=== PATIENT | female | born 1940 | race Caucasian/White ===

== ENCOUNTER 2017-10-17 07:42 | Emergency (ER) | payer MEDICARE ==
--- NOTE | 2017-10-17 08:52 | RAD ---
CHEST 1 VIEW: Date: 10/17/17 HISTORY: Cough. COMPARISON: Chest radiograph dated 02/27/17. FINDINGS: Lungs are hyperinflated. No pneumothorax or effusion. Heart size mildly enlarged. Multiple surgical c lips. No acute osseous abnormality. IMPRESSION: Lung hyperinflation and cardiomegaly. POS: [facility]
[2017-10-17 08:53] LABS: Hemoglobin 11.9 g/dL (12.0-16.0); Mean Corpuscular HGB CONC 33.6 g/dL (32.0-36.0); Mean Corpuscular Hemoglobin 34.9 pg (27.0-31.0); RBC Distribution Width 11.8 % (11.5-14.5); Red Blood Cell (RBC) Count 3.41 mill/uL (4.20-5.40)
[2017-10-17 08:57] LABS: CKMB 0.8 ng/mL (0-6.6); Troponin I Less than 0.010 ng/mL (< 0.028)
[2017-10-17 08:59] LABS: ALT (SGPT) 27 U/L (8-55); AST (SGOT) 26 U/L (5-34); Albumin 3.4 g/dL (3.4-4.8); Alkaline Phosphatase 69 U/L (40-150); Anion Gap 9 mmol/L (10-20); BUN (Urea Nitrogen) 17 mg/dL (9.8-20.1); Bilirubin, Total 0.4 mg/dL (0.2-1.2); Calc. Creatinine Clearance 0 mL/min (70-130); Calcium 9.2 mg/dL (7.8-10.44); Carbon Dioxide 30 mmol/L (23-31); Chloride 106 mmol/L (98-107); Estimated GFR-MDRD 85; Globulin 2.6 g/dL (2.4-3.5); Glucose 80 mg/dL (83-110); Potassium 4.1 mmol/L (3.5-5.1); Sodium 141 mmol/L (136-145)
[2017-10-17] MEDS ORDERED: Ondansetron HCl/PF 4 MG/2 ML Vial ONE (09:22)
[2017-10-17 09:24] LABS: #Eosinphils 0.1 thou/uL (0.0-0.7); #Lymphocytes 1.7 thou/uL (1.20-3.40); #Monocytes 0.3 thou/uL (0.11-0.59); #Neutrophils 2.9 thou/uL (1.40-6.50); %Basophils 0.2 % (0.0-1.0); %Eosinophils 2.6 % (0.0-10.0); %Lymphocytes 33.9 % (21.0-51.0); %Monocytes 6.5 % (0.0-10.0); %Neutrophils 56.8 % (42.0-75.0); PLT Morphology Comment Appears Decreased; Platelet Count 106 thou/uL (130-400)
[2017-10-17 11:10] LABS: Bilirubin Negative (Negative); Blood, Urine Negative (Negative); Glucose, Urine (Dipstick) Negative (Negative); Leukocyte Negative (Negative); Nitrite Negative (Negative); Protein, Urine (Dipstick) Negative (Neg-Trace); Specific Gravity, Urine 1.015 (1.005-1.030); Urobilinogen 0.2 mg/dL (0.2-1.0)
[2017-10-17 11:14] LABS: Clarity Clear (Clear)
== END 2017-10-17 12:08 | disposition home or self-care (01) ==
LOC: ERS 07:42
DX: R11.0 Nausea (principal); J44.9 Chronic obstructive pulmonary disease, unspecified; I25.10 Atherosclerotic heart disease of native coronary artery without angina pectoris; E11.9 Type 2 diabetes mellitus without complications; K21.9 Gastro-esophageal reflux disease without esophagitis; I10 Essential (primary) hypertension; M81.0 Age-related osteoporosis without current pathological fracture; F41.9 Anxiety disorder, unspecified; F32.9 Major depressive disorder, single episode, unspecified; F17.210 Nicotine dependence, cigarettes, uncomplicated; Z79.84 Long term (current) use of oral hypoglycemic drugs; Z79.899 Other long term (current) drug therapy; Z86.73 Personal history of transient ischemic attack (TIA), and cerebral infarction without residual deficits
CPT/HCPCS: 36415; 71045; 80053; 81003; 82150; 82553; 83880; 84484; 85025; 93005; 96361; 96374; J2405

== ENCOUNTER 2017-10-29 11:21 | Inpatient (IN) | payer MEDICARE ==
[2017-10-29 12:12] LABS: #Eosinphils 0.2 thou/uL (0.0-0.7); #Lymphocytes 1.7 thou/uL (1.20-3.40); #Monocytes 0.4 thou/uL (0.11-0.59); #Neutrophils 2.7 thou/uL (1.40-6.50); %Basophils 0.2 % (0.0-1.0); %Eosinophils 3.5 % (0.0-10.0); %Lymphocytes 33.3 % (21.0-51.0); Hemoglobin 11.9 g/dL (12.0-16.0); Mean Corpuscular HGB CONC 32.8 g/dL (32.0-36.0); Mean Corpuscular Hemoglobin 34.6 pg (27.0-31.0); Mean Platelet Volume 7.2 fL (7.4-10.4); Platelet Count 99 thou/uL (130-400); Red Blood Cell (RBC) Count 3.44 mill/uL (4.20-5.40)
[2017-10-29 12:34] LABS: ALT (SGPT) 40 U/L (8-55); AST (SGOT) 34 U/L (5-34); Albumin 3.3 g/dL (3.4-4.8); Alkaline Phosphatase 81 U/L (40-150); Anion Gap 7 mmol/L (10-20); BUN (Urea Nitrogen) 17 mg/dL (9.8-20.1); Bilirubin, Total 0.5 mg/dL (0.2-1.2); Calc. Creatinine Clearance 0 mL/min (70-130); Calcium 9.2 mg/dL (7.8-10.44); Carbon Dioxide 33 mmol/L (23-31); Chloride 104 mmol/L (98-107); Estimated GFR-MDRD Greater than 90; Globulin 2.6 g/dL (2.4-3.5); Glucose 95 mg/dL (83-110); Lipase 24 U/L (8-78); Potassium 4.4 mmol/L (3.5-5.1); Protein, Total 5.9 g/dL (6.0-8.3); Sodium 140 mmol/L (136-145)
--- NOTE | 2017-10-29 13:21 | CT ---
CT AORTOGRAM CHEST AND ABDOMEN WITH CONTRAST: Multiple axial tomograms are obtained through the chest and abdomen with arterial phase enhancement f ollowing aortogram protocol with multiplanar reconstruction and 3D postprocessing. INDICATIONS: Abdominal pain. Shortness of breath. Assess for aortic dissection. FINDINGS: There is mild ectasia of the ascending aorta with diameter measured up to 3 cm. Atherosclerotic ng ges are seen throughout the thoracic and abdominal aorta. There is mild ectasia of the descending th oracic aorta with diameter measured at up to 3.3 cm. There is no evidence of thoracic or abdominal a ortic dissection. 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 There is a large amount of peripheral thrombus within this saccular aneurysm. The overall diameter is measured at 3.6 cm and the lumen at this location measured approximately 2.0 cm. There is atherosclerotic calcified plaque at the origin of both celiac artery and superior mesenteric artery. These changes produce mild stenosis at both of these arteries. There is calcified plaque a t the origin of both renal arteries and there appears to be significant stenosis at the origin of bot h renal arteries (greater than 50%). Diffuse atherosclerotic disease is seen at the aortic bifurcation and extending into both common anastasiya cs and external iliacs. This produces mild stenosis which does not appear hemodynamically significan t. Review of the lung mantilla showed diffuse chronic lung parenchymal changes with interstitial thickenin g of fibrotic stranding bilaterally with evidence of emphysematous change. A focal area of parenchym al opacity is seen in the posterior right upper lobe along the fissure could represent a focal inflam matory infiltrate. Liver, spleen, pancreas unremarkable. Kidneys unremarkable. There are bilateral adrenal masses. The left adrenal mass measures up to 3.2 cm and the right adrena l mass measures 2.0 cm in the coronal plane. These are heterogeneous and show evidence of internal e nhancement and cannot be classified as benign adenomas on this single-phase study. Visualized bowel loops unremarkable. Review of the osseous structures shows degenerative changes in the spine. There is a defect involvin g the peripheral left ileum which presumably represents the site of bone graft. This has sclerotic m argins and does not appear aggressive. Recommend clinical correlation regarding prior surgery. IMPRESSION: 1. No evidence of thoracic or abdominal aortic dissection. 2. 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 3. Ectasia of thoracic and abdominal aorta otherwise noted as described above. 4. Bilateral adrenal masses which will need further evaluation to exclude neoplasm. 5. There is a focal area of parenchymal opacity in the posterior right upper lobe along the fissure which is concerning for acute inflammatory infiltrate and recommend clinical correlation. 6. Bilateral renal artery stenosis POS: [facility]
[2017-10-29] MEDS ORDERED: hydrALAZINE 20 MG/ML VIAL ONE (14:16)
[2017-10-29] MEDS ORDERED: Acetaminophen/Codeine 30-300mg Tablet ONE (14:44)
[2017-10-29] MEDS ORDERED: Acetaminophen/Codeine 120-12MG/5 ML UDCUP PO SCH (14:45)
[2017-10-29] MEDS ORDERED: Levofloxacin 500 mg/D5W 100 ml Premix Bag ONE (15:00)
[2017-10-29] MEDS ORDERED: ISOVUE-370 76%-LOCM 1 ML ONE (16:37)
[2017-10-29 16:40] VITALS: BMI 13.3
[2017-10-29] MEDS: Sodium Chloride 0.45% 1,000 ML IV SCH (17:43)
[2017-10-29] MEDS: Sodium Chloride 0.9% 1,000 ML IV SCH (17:43)
[2017-10-29] MEDS: Ondansetron HCl/PF 4 MG/2 ML Vial SLOW IVP PRN (17:56)
[2017-10-29] MEDS: Acetaminophen/Codeine 30-300mg Tablet PO SCH (19:35)
[2017-10-29] MEDS: ALPRAZolam 0.5 MG TAB PO SCH (19:36)
[2017-10-29] MEDS: Atorvastatin Calcium 10 MG TAB PO SCH (19:36)
[2017-10-29] MEDS: Lisinopril 20 MG TAB PO SCH (19:37)
[2017-10-29] MEDS: Carvedilol 6.25 MG TAB PO SCH (19:37)
[2017-10-29] MEDS: guaiFENesin ER 600 MG TAB PO SCH (19:37)
[2017-10-29] MEDS: Temazepam 15 MG CAP PO SCH (19:37)
--- NOTE | 2017-10-29 23:39 | HP ---
DATE OF ADMISSION: 10/29/2017 REASON FOR ADMISSION AND CHIEF COMPLAINT: Shortness of breath, cough, fever, and nausea. HISTORY OF PRESENT ILLNESS: Ms. Marlow is a 77-year-old female with past medical history of end-stage COPD, hypertension, coronary artery disease status post CABG, started having some shortness of breath since yesterday which got worse today. Also has cough productive with yellow sputum. Also having some low grade fever. The patient says she has been using nebulizer treatments as well as other medications. In spite of that, the shortness of breath was getting worse and cough was getting worse as well. The patient also has had this persistent nausea for some time for the last few weeks , but no vomiting. She is able to tolerate diet. So the patient called EMS, EMS found the patient with respiratory distress, received Solu-Medrol and neb treatments on the way to the hospital. In the ER, the patient was evaluated and found to have an infiltrate in right lower lobe and COPD exacerbation, received antibiotic Levaquin. She also received Tylenol with codeine for pain and blood pressure was evaluated and received hydralazine as well and admitted for further evaluation and management. PAST MEDICAL HISTORY: 1. Chronic obstructive pulmonary disease, end-stage. 2. Coronary artery disease, status post coronary artery bypass graft. 3. Hypertension 4. Anxiety disorder. 5. Chronic back pain. 6. Protein calorie malnutrition. 7. Gastroesophageal reflux disease. 8. History of cerebrovascular accident with right cerebellar ataxia. 9. History of subarachnoid hemorrhage. 10. History of osteoporosis. PAST SURGICAL HISTORY: Status post CABG. CURRENT MEDICATIONS: The patient is on Restoril 30 mg at bedtime, metformin 500 daily, lisinopril 20 b.i.d., Lexapro 20 mg daily, Xanax 0.5 t.i.d., digoxin 0.125 daily, DuoNebs q.i.d., ranitidine 150 daily, estradiol patch weekly, Tylenol with codeine q.i.d. p.r.n., Symbicort 160/4.5 two puffs b.i.d., Pravachol 40 at bedtime, Coreg 6.25 b.i.d. ALLERGIES: PENICILLIN. FAMILY HISTORY: Nothing contributory. SOCIAL HISTORY: The patient lives alone. History of smoking, smokes half pack a day. No history of alcohol intake. REVIEW OF SYSTEMS: Cardiovascular: Has shortness of breath, no chest pain. Respiratory: Has cough and fever. Gastrointestinal: Has nausea. No vomiting. No abdominal pain. Genitourinary: No dysuria or hematuria. Central nervous system: No headache, no dizziness. PHYSICAL EXAMINATION: GENERAL: The patient is alert, awake, oriented x3. VITAL SIGNS: Temperature 98, pulse 74, respirations 20, blood pressure initially 200/106. HEENT: Head is normocephalic, atraumatic. Pupils equal and reactive to light. Nasopharynx is pale and dry. Hard and soft palate, no lesions seen. SKIN: Skin turgor decreased. NECK: Supple. No JVD. LUNGS: Breath sounds diminished bilaterally. Percussion not dull bilaterally. Expiratory wheeze present. Rales present in bases. CARDIAC: S1, S2 regular. ABDOMEN: Soft, no distention, no tenderness. Normal bowel sounds present. RECTAL: Deferred. CENTRAL NERVOUS SYSTEM: No focal deficit. LABORATORY AND X-RAY FINDINGS: CBC shows WBC 5, hemoglobin 11.9, hematocrit 36 , platelets 99,000. Prothrombin time 13, INR 1. Metabolic panel shows sodium 140, potassium 4.4, chloride 104, CO2 of 33, BUN 17, creatinine 0.62, glucose 123. CT dissection protocol revealed infiltrate in the posterior upper lobe along the fissure right upper lobe, also evidence of bilateral adrenal masses , saccular aneurysmal dilatation of abdominal aorta with a large amount of peripheral thrombus. EKG shows sinus bradycardia, no acute ST-T wave changes seen. ASSESSMENT: 1. Pneumonia, right upper lobe. 2. Chronic obstructive pulmonary disease with acute exacerbation. 3. Hypertension, uncontrolled. 4. Bilateral adrenal masses, stable compared to the MRI done in 2010, overall size not increased. 5. Chronic nausea. 6. Coronary artery disease, status post coronary artery bypass graft. 7. Protein calorie malnutrition. 8. Anxiety disorder. 9. Chronic back pain. PLAN: 1. Vital signs q.4 hours. 2. Activity: As tolerated. 3. Allergies: PENICILLIN. 4. IV fluids: Half normal at 70 mL per hour. 5. Diet: Cardiac. 6. DuoNebs q.i.d. 7. Solu-Medrol 20 IVP q.6 hours. 8. Mucinex 600 b.i.d. 9. Levaquin 750 daily IV piggyback daily. 10. Continue home medications. 11. Oxygen by nasal cannula at 2 liters. MTDD
[2017-10-30] MEDS: Sodium Chloride 0.45% 1,000 ML IV SCH ×2 (06:26→06:27)
[2017-10-30] MEDS: Sodium Chloride 0.9% 1,000 ML IV SCH (06:32)
[2017-10-30] MEDS: Mometasone/Formoterol 120 PUFF INHALER INH SCH ×2 (06:43→19:45)
[2017-10-30] MEDS: Ondansetron HCl/PF 4 MG/2 ML Vial SLOW IVP PRN ×2 (07:47→13:21)
[2017-10-30] MEDS: Acetaminophen/Codeine 30-300mg Tablet PO SCH ×3 (07:48→20:22)
[2017-10-30] MEDS: guaiFENesin ER 600 MG TAB PO SCH ×2 (07:48→20:23)
[2017-10-30] MEDS: Escitalopram Oxalate 20 mg Tablet PO SCH (07:48)
[2017-10-30] MEDS: ALPRAZolam 0.5 MG TAB PO SCH ×3 (07:48→20:23)
[2017-10-30] MEDS: Lisinopril 20 MG TAB PO SCH ×2 (07:49→20:23)
[2017-10-30] MEDS: metFORMIN 500 MG TAB PO SCH ×2 (07:50→16:58)
[2017-10-30] MEDS: Carvedilol 6.25 MG TAB PO SCH ×2 (07:50→20:23)
[2017-10-30] MEDS: Digoxin 0.125 MG TAB PO SCH (07:53)
[2017-10-30] MEDS: cefTRIAXone\\ROCEPHIN 1 GM, Syringe 0.4 ML in Sterile Water 9.6 ML SLOW IVP SCH (11:40)
[2017-10-30] MEDS: Azithromycin 250 MG in Sodium Chloride 0.9% 250 ML 250 ML IVPB SCH (11:41)
[2017-10-30] MEDS: Temazepam 15 MG CAP PO SCH (20:23)
[2017-10-30] MEDS: Atorvastatin Calcium 10 MG TAB PO SCH (20:23)
[2017-10-31] MEDS: Sodium Chloride 0.45% 1,000 ML IV SCH (03:15)
[2017-10-31] MEDS: Mometasone/Formoterol 120 PUFF INHALER INH SCH ×2 (07:57→22:42)
[2017-10-31] MEDS: Carvedilol 6.25 MG TAB PO SCH ×2 (08:17→20:26)
[2017-10-31] MEDS: metFORMIN 500 MG TAB PO SCH ×2 (08:18→17:12)
[2017-10-31] MEDS: ALPRAZolam 0.5 MG TAB PO SCH ×3 (08:18→20:26)
[2017-10-31] MEDS: Acetaminophen/Codeine 30-300mg Tablet PO SCH ×3 (08:18→20:27)
[2017-10-31] MEDS: Lisinopril 20 MG TAB PO SCH ×2 (08:18→20:26)
[2017-10-31] MEDS: Escitalopram Oxalate 20 mg Tablet PO SCH (08:18)
[2017-10-31] MEDS: guaiFENesin ER 600 MG TAB PO SCH ×2 (08:18→20:26)
[2017-10-31] MEDS: Ondansetron HCl/PF 4 MG/2 ML Vial SLOW IVP PRN (08:23)
[2017-10-31] MEDS: cefTRIAXone\\ROCEPHIN 1 GM, Syringe 0.4 ML in Sterile Water 9.6 ML SLOW IVP SCH (11:30)
[2017-10-31] MEDS: Azithromycin 250 MG in Sodium Chloride 0.9% 250 ML 250 ML IVPB SCH (12:50)
[2017-10-31] MEDS ORDERED: Amlodipine 5 MG TAB PO SCH (18:15)
[2017-10-31] MEDS: Temazepam 15 MG CAP PO SCH (20:26)
[2017-10-31] MEDS: Atorvastatin Calcium 10 MG TAB PO SCH (20:26)
[2017-11-01] MEDS: Mometasone/Formoterol 120 PUFF INHALER INH SCH ×2 (08:14→19:23)
[2017-11-01] MEDS: Carvedilol 6.25 MG TAB PO SCH ×2 (09:05→20:17)
[2017-11-01] MEDS: ALPRAZolam 0.5 MG TAB PO SCH ×3 (09:05→20:18)
[2017-11-01] MEDS: Escitalopram Oxalate 20 mg Tablet PO SCH (09:05)
[2017-11-01] MEDS: guaiFENesin ER 600 MG TAB PO SCH ×2 (09:05→20:17)
[2017-11-01] MEDS: Acetaminophen/Codeine 30-300mg Tablet PO SCH ×3 (09:05→20:18)
[2017-11-01] MEDS: Lisinopril 20 MG TAB PO SCH ×2 (09:05→20:17)
[2017-11-01] MEDS: Amlodipine 5 MG TAB PO SCH (09:06)
[2017-11-01] MEDS: metFORMIN 500 MG TAB PO SCH ×2 (09:06→17:36)
[2017-11-01] MEDS: Digoxin 0.125 MG TAB PO SCH (09:12)
[2017-11-01] MEDS: Azithromycin 250 MG in Sodium Chloride 0.9% 250 ML 250 ML IVPB SCH (13:10)
[2017-11-01] MEDS: cefTRIAXone\\ROCEPHIN 1 GM, Syringe 0.4 ML in Sterile Water 9.6 ML SLOW IVP SCH (13:10)
[2017-11-01] MEDS: Atorvastatin Calcium 10 MG TAB PO SCH (20:17)
[2017-11-01] MEDS: Temazepam 15 MG CAP PO SCH (20:18)
[2017-11-02] MEDS: Mometasone/Formoterol 120 PUFF INHALER INH SCH (08:09)
[2017-11-02] MEDS: Lisinopril 20 MG TAB PO SCH (08:24)
[2017-11-02] MEDS: Carvedilol 6.25 MG TAB PO SCH (08:24)
[2017-11-02] MEDS: Acetaminophen/Codeine 30-300mg Tablet PO SCH (08:25)
[2017-11-02] MEDS: ALPRAZolam 0.5 MG TAB PO SCH (08:25)
[2017-11-02] MEDS: Escitalopram Oxalate 20 mg Tablet PO SCH (08:25)
[2017-11-02] MEDS: Amlodipine 5 MG TAB PO SCH (08:25)
[2017-11-02] MEDS: guaiFENesin ER 600 MG TAB PO SCH (08:25)
[2017-11-02] MEDS: metFORMIN 500 MG TAB PO SCH (08:25)
[2017-11-02] MEDS: cefTRIAXone\\ROCEPHIN 1 GM, Syringe 0.4 ML in Sterile Water 9.6 ML SLOW IVP SCH (11:11)
[2017-11-02] MEDS: Azithromycin 250 MG in Sodium Chloride 0.9% 250 ML 250 ML IVPB SCH (12:20)
[2017-11-02 12:45] VITALS: BP 169/77; TEMP 97.6
--- NOTE | 2017-11-03 11:38 | DIS ---
DATE OF ADMISSION: 10/29/2017 DATE OF DISCHARGE: 11/02/2017 ADMITTING DIAGNOSES: 1. Pneumonia, right upper lobe. 2. Chronic obstructive pulmonary disease with acute exacerbation. 3. Hypertension, uncontrolled. 4. Bilateral adrenal masses, stable compared to MRI done in 2009. 5. Chronic nausea. 6. Coronary artery disease, status post coronary artery bypass graft. 7. Protein calorie malnutrition. 8. Anxiety disorder. 9. Chronic back pain. FINAL DIAGNOSES: 1. Right upper lobe pneumonia, improving. 2. Chronic obstructive pulmonary disease acute exacerbation, improved. 3. Chronic nausea, improving. 4. Hypertension. 5. Protein calorie malnutrition. 6. Coronary artery disease, status post coronary artery bypass graft. 7. Bilateral adrenal masses, stable. 8. Anxiety disorder. BRIEF SUMMARY OF HOSPITAL COURSE: Ms. Marlow is a 77-year-old female admitted because of shortness of breath and cough. The patient was found to be in COPD exacerbation with pneumonia. Th e patient was started on IV fluids and IV antibiotics with Levaquin, DuoNeb, and Solu-Medrol. In the next couple of days, her shortness of breath improved and her chest wheezing resolved. She did not have any fever. She became more alert, awake, and she was able to tolerate diet. Her blood cultures revealed no growth. In view of improvement, the patient still feels very weak, not able to ambulate on her own. She requesting usp placement where she can get physical therapy, so she is jonathan ng discharged. At the time of discharge, she was stable. Her vital signs were stable. Lungs were c lear. Heart sounds are regular. Abdomen is soft, nontender. Bowel sounds present. DISCHARGE MEDICATIONS: Include temazepam 30 mg at bedtime, metformin 500 daily, lisinopril 20 mg b.i .d., Lexapro 20 mg daily, Xanax 0.5 t.i.d., digoxin 0.125 daily, DuoNeb q.i.d., estradiol patch weekl y, Tylenol with Codeine 1 t.i.d., metformin 250 at bedtime, Symbicort 160/4.5 two puffs b.i.d., Prava chol 40 mg at bedtime, Coreg 12.5 b.i.d., amlodipine 5 mg daily, Omnicef 300 b.i.d. for 10 days, guai fenesin ER 600 b.i.d. for 10 days, prednisone in tapering doses. DISCHARGE INSTRUCTIONS: The patient is accepted at [facility]. She will get physical t herapy.
[2017-11-05] MEDS ORDERED: Estradiol 0.05mg/24 Hour Patch (Weekly) TD SCH (09:00)
--- NOTE | 2017-11-12 16:44 | PQF ---
CHRISTIAN BONILLA VENKAT R MD [id number] CLINICAL DOCUMENTATION CLARIFICATION FORM: POST DISCHARGE Addendum to original discharge summary date: ____ Late entry note date: __ Date: 11/12/17 ATTN: Dr Gonzalez Please exercise your independent, professional judgment in responding to the clarification form. Clinical indicators are provided on the bottom of this form for your review Please check appropriate box(s): [ y ] Protein Calorie Malnutrition: [ ] Mild [y ] Moderate [ ] Severe [ ] Other Malnutrition (please specify) __ [ ] Underweight without malnutrition [ ] Cachexia [ ] Other diagnosis [ ] Unable to determine In addition, please specify: Present on Admission (POA): [ y] Yes [ ] No [ ] Unable to determine CLINICAL INDICATORS - SIGNS / SYMPTOMS / LABS BMI of __13.3 Two or More of the Following: Unintentional Insufficient Energy Intake Weight Loss Loss of Muscle Mass Loss of Subcutaneous Fat h RISK FACTORS Inability to consume adequate caloric intake Chronic nausea TREATMENT: Moderate Malnutrition (in acute illness) Energy Intake: <75% of estimated energy requirement for > 7 days Weight Loss: 1-2%/1 week; 5%/ 1 month; 7.5%/3 months Other: mild body fat loss; mild muscle mass loss; mild fluid accumulation; Severe Malnutrition (in acute illness) Energy Intake: < 50% of estimated energy requirement for > 5 days Weight Loss: >1-2%/1 week; >5%/1 month; >7.5%/3 months Other: moderate body fat loss; moderate muscle mass loss; moderate- severe fluid accumulation; 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 Moderate Malnutrition (in chronic illness) Energy Intake: <75% of estimated energy requirement for >1 month Weight Loss: 5%/1 month; 7.5%/3 months; 10%/6 months; 20%/1 year Other: mild body fat loss; mild muscle mass loss; mild fluid accumulation Severe Malnutrition (in chronic illness) Energy Intake: <75% of estimated energy requirement for >1 month Weight Loss: >5%/1 month; >7.5%/3 months; >10%/6 months; >20%/1 year Other: severe body fat loss; severe muscle mass loss; severe fluid accumulation; 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 All Rights Reserved [email or web address] [phone] MTDD
== END 2017-11-02 13:26 | DRG 190 ==
LOC: ERS 11:21 → T4-B 13:48
PROVIDERS: ADMIT Internal Medicine; ATTEND Internal Medicine
DX: J44.0 Chronic obstructive pulmonary disease with (acute) lower respiratory infection (principal); J18.9 Pneumonia, unspecified organism; E44.0 Moderate protein-calorie malnutrition; Z68.1 Body mass index [BMI] 19.9 or less, adult; J44.1 Chronic obstructive pulmonary disease with (acute) exacerbation; I10 Essential (primary) hypertension; I25.10 Atherosclerotic heart disease of native coronary artery without angina pectoris; Z95.1 Presence of aortocoronary bypass graft; F41.9 Anxiety disorder, unspecified; G89.29 Other chronic pain; M54.9 Dorsalgia, unspecified; K21.9 Gastro-esophageal reflux disease without esophagitis; Z86.73 Personal history of transient ischemic attack (TIA), and cerebral infarction without residual deficits; M81.0 Age-related osteoporosis without current pathological fracture; Z79.84 Long term (current) use of oral hypoglycemic drugs; Z88.0 Allergy status to penicillin; F17.210 Nicotine dependence, cigarettes, uncomplicated; E27.9 Disorder of adrenal gland, unspecified; R11.0 Nausea
CPT/HCPCS: 36415; 36416; 71275; 80053; 83690; 85025; 87040; 93005; 94640; 96365; 96375; A4216; G8978-GP-CL; G8979-GP-CJ; J0360; J0456; J0696; J1956; J2405; J2920; J7050; J7620

== ENCOUNTER 2017-11-19 00:44 | Emergency (ER) | payer MEDICARE ==
[2017-11-19 01:36] LABS: ALT (SGPT) 147 U/L (8-55); AST (SGOT) 62 U/L (5-34); Albumin 3.4 g/dL (3.4-4.8); Alkaline Phosphatase 105 U/L (40-150); Anion Gap 10 mmol/L (10-20); BUN (Urea Nitrogen) 19 mg/dL (9.8-20.1); Bilirubin, Total 0.7 mg/dL (0.2-1.2); Calc. Creatinine Clearance 0 mL/min (70-130); Calcium 8.9 mg/dL (7.8-10.44); Carbon Dioxide 24 mmol/L (23-31); Chloride 106 mmol/L (98-107); Estimated GFR-MDRD 85; Globulin 2.5 g/dL (2.4-3.5); Glucose 122 mg/dL (83-110); Potassium 4.1 mmol/L (3.5-5.1); Protein, Total 5.9 g/dL (6.0-8.3); Sodium 136 mmol/L (136-145)
[2017-11-19 01:43] LABS: Hemoglobin 12.9 g/dL (12.0-16.0); Mean Corpuscular HGB CONC 32.7 g/dL (32.0-36.0); Red Blood Cell (RBC) Count 3.81 mill/uL (4.20-5.40); White Blood Cell (WBC) Count 9.9 thou/uL (4.8-10.8)
[2017-11-19 01:50] LABS: #Eosinphils 0.1 thou/uL (0.0-0.7); #Lymphocytes 0.7 thou/uL (1.20-3.40); #Monocytes 0.4 thou/uL (0.11-0.59); #Neutrophils 8.7 thou/uL (1.40-6.50); %Basophils 0.2 % (0.0-1.0); %Eosinophils 1.3 % (0.0-10.0); %Lymphocytes 7.3 % (21.0-51.0); %Monocytes 3.8 % (0.0-10.0); %Neutrophils 87.4 % (42.0-75.0); Mean Platelet Volume 6.4 fL (7.4-10.4); PLT Morphology Comment Appears Decreased; Platelet Count 95 thou/uL (130-400)
[2017-11-19] MEDS ORDERED: Azithromycin 500 MG VIAL ONE (02:10)
[2017-11-19 04:19] LABS: Digoxin Less than 0.15 ng/mL (0.8-2.0)
--- NOTE | 2017-11-19 07:55 | RAD ---
PORTABLE CHEST 1 VIEW: DATE: 11/19/17. TIME: 1:29 a.m. HISTORY: Dyspnea, fever, chills. FINDINGS: Comparison is made with the exam dated 10/17/17. Changes of median sternotomy are again seen. There is evidence of old granulomatous disease. The amberly ngs are hyperinflated. The heart size is normal and aorta is tortuous. No lobar consolidation, pneu mothoraces, or pleural effusions are seen. IMPRESSION: No acute process. POS: [facility]
== END 2017-11-19 04:21 | disposition home or self-care (01) ==
LOC: ERS 00:44
DX: J44.9 Chronic obstructive pulmonary disease, unspecified (principal); Z86.73 Personal history of transient ischemic attack (TIA), and cerebral infarction without residual deficits; I25.10 Atherosclerotic heart disease of native coronary artery without angina pectoris; E11.9 Type 2 diabetes mellitus without complications; K21.9 Gastro-esophageal reflux disease without esophagitis; F41.9 Anxiety disorder, unspecified; F32.9 Major depressive disorder, single episode, unspecified; Z87.891 Personal history of nicotine dependence; Z79.899 Other long term (current) drug therapy
CPT/HCPCS: 36415; 71045; 80053; 80162; 82553; 83880; 84484; 85025; 93005; 96365; J0456; J7620

== ENCOUNTER 2017-11-20 04:52 | Inpatient (IN) | payer MEDICARE ==
[2017-11-20 06:37] LABS: #Lymphocytes 0.6 thou/uL (1.20-3.40); #Monocytes 0.4 thou/uL (0.11-0.59); #Neutrophils 10.3 thou/uL (1.40-6.50); %Eosinophils 0.2 % (0.0-10.0); %Lymphocytes 5.6 % (21.0-51.0); %Monocytes 3.1 % (0.0-10.0); %Neutrophils 91.1 % (42.0-75.0); Hemoglobin 12.3 g/dL (12.0-16.0); Mean Corpuscular HGB CONC 33.1 g/dL (32.0-36.0); Mean Corpuscular Hemoglobin 34.5 pg (27.0-31.0); Platelet Count 83 thou/uL (130-400); RBC Distribution Width 12.1 % (11.5-14.5); Red Blood Cell (RBC) Count 3.57 mill/uL (4.20-5.40); White Blood Cell (WBC) Count 11.2 thou/uL (4.8-10.8)
[2017-11-20] MEDS ORDERED: Ondansetron HCl/PF 4 MG/2 ML Vial ONE (06:39)
[2017-11-20 07:11] LABS: Anion Gap 13 mmol/L (10-20); BUN (Urea Nitrogen) 27 mg/dL (9.8-20.1); Calc. Creatinine Clearance 0 mL/min (70-130); Calcium 9.4 mg/dL (7.8-10.44); Carbon Dioxide 22 mmol/L (23-31); Chloride 106 mmol/L (98-107); Estimated GFR-MDRD 86; Glucose 141 mg/dL (83-110); Potassium 4.4 mmol/L (3.5-5.1); Sodium 137 mmol/L (136-145)
[2017-11-20] MEDS ORDERED: ePHEDrine/0.9% NaCl/PF SYRINGE 50 mg/10 ml ONE (07:17)
[2017-11-20] MEDS ORDERED: PHENYLEPHRINE-NS 100 MCG/ML 10 ML SYRINGE ONE (07:17)
[2017-11-20] MEDS ORDERED: Dextrose 50% Abboject 50 ML SYRINGE SLOW IVP PRN (07:59)
[2017-11-20] MEDS ORDERED: Sodium Chloride 0.9% 1,000 ML IV SCH (07:59)
[2017-11-20] MEDS ORDERED: Ondansetron HCl/PF 4 MG/2 ML Vial IVP PRN ×2 (07:59→13:47)
[2017-11-20] MEDS ORDERED: Ondansetron ODT 4 MG TAB PO PRN (07:59)
[2017-11-20] MEDS ORDERED: Dextrose 5% in Water 1,000 ML IV PRN (07:59)
[2017-11-20] MEDS ORDERED: Morphine 2 mg/2ml in 0.9% NaCl PF SYRINGE IVP PRN (08:30)
--- NOTE | 2017-11-20 08:45 | HP ---
DATE OF ADMISSION: 11/20/2017 REQUESTING PHYSICIAN: Dr. Orourke. ATTENDING SURGEON: Dr. Carrion. CONSULTATION: Orthopedics, Dr. Robertson. HISTORY OF PRESENT ILLNESS: The patient is a 77-year-old woman who resides in a nursing [facility] this morning when she was getting up to go the bathroom, was not using her walker, slipped and fel l landing on her left hip. Patient had immediate pain and was able to some and help. EMS brought he r to the emergency department where she was noted to have a left hip fracture, at which time we were asked to admit the patient and obtain orthopedic consultation. The patient denies chest pain, dizzin ess, shortness of breath or any syncopal type symptoms. CURRENT MEDICATIONS: Estradiol, digoxin, Norvasc, Restoril, Coreg, lisinopril, and Zithromax. PAST MEDICAL HISTORY: COPD, coronary artery disease, hypertension, diabetes, osteoporosis, gastritis , history of CVA with left-sided weakness, left elbow skin tear. PAST SURGICAL HISTORY: Coronary artery bypass graft 4-vessel, cholecystectomy, hysterectomy, and ort hopedic surgery to her back. SOCIAL HISTORY: The patient has not used tobacco in greater than 10 years. Denies alcohol use and d enies drug use. FAMILY MEDICAL HISTORY: Significant for coronary artery disease and strokes. REVIEW OF SYSTEMS: Ten point review of systems negative as otherwise stated. PHYSICAL EXAMINATION: VITAL SIGNS: Blood pressure 114/75, heart rate 89, respirations 26, temperature is 98.6, oxygen satu ration is 92% on 3 liters via nasal cannula. Of note, the patient wears home oxygen at 2 liters via nasal cannula. GENERAL: The patient is resting comfortably in an ER bed. She is awake, alert, and oriented x3. Gl asgow coma scale is 15. HEENT: Head is normocephalic and atraumatic. EYES: Extraocular motion intact. PERRLA bilaterally. EARS: Atraumatic without discharge. NOSE: Atraumatic without discharge. OROPHARYNX: Clear. NECK: Nontender. Trachea is midline. No JVD. CHEST: Clear to auscultation bilaterally. The patient has just completed a breathing treatment here in the emergency department. HEART: Has regular rate and rhythm. ABDOMEN: Soft, flat, nontender with active bowel sounds. Pelvis is stable. Left hip tender to palp ation consistent with her fracture. EXTREMITIES: Neurovascularly intact x4. BACK: Nontender and atraumatic. LABORATORY DATA: White blood cell count 11.2, hemoglobin 12.3, hematocrit 37.1, platelets 83. Sodiu m 137, potassium 4.4, chloride 106, CO2 22, BUN 27, creatinine 0.66, glucose 141, PTT and INR are pen ding. RADIOGRAPHIC REPORTS: Views of the left hip show a left intertrochanteric femur fracture. AP pelvis again shows a minimally displaced left intertrochanteric hip fracture. AP chest shows no acute proc esses. Multiple chronic changes to include sternal wires and appearance of chronic COPD. ASSESSMENT AND PLAN: 1. Status post ground level fall. 2. Pain secondary to trauma. 3. Left intertrochanteric femur fracture. 4. Diabetes. 5. History of coronary artery disease. 6. History of hypertension. 7. Chronic obstructive pulmonary disease. Plan will be to admit the patient to the surgical floor for pain management. Keep the patient n.p.o. Gastritis and mechanical DVT prophylaxis. Pulmonary toilet to include scheduled DuoNebs. The assessment and plan, radiographs and laboratory findings were all discussed with Dr. Murali daily r this dictation. She will see the patient on the floor.
--- NOTE | 2017-11-20 08:49 | CON ---
DATE OF CONSULTATION: 11/20/2017 CHIEF COMPLAINT: Hip pain. HISTORY OF PRESENT ILLNESS: Ms. Marlow is a 77-year-old female who lives in a nursing facility. S he fell in the bathroom. She landed on her left hip. She was unable to ambulate. She was found by caregivers. She was taken to the Emergency Department. X-rays were obtained which demonstrate a lef t intertrochanteric femur fracture. She has been admitted to the hospital. She has been cleared for surgery from an orthopedic standpoint. She is currently comfortable. Family is at the bedside. PAST MEDICAL HISTORY: Coronary artery disease status post CABG approximately 20 years ago. The chaparro ent had had CVA in the past, severe COPD on home oxygen, history of diabetes, GERD and hypertension. PAST SURGICAL HISTORY: Coronary artery bypass graft, 4-vessel 20 years ago; previous cholecystectomy ; hysterectomy; and lumbar back surgery. PSYCHIATRIC HISTORY: Positive for anxiety and depression. SOCIAL HISTORY: The patient lives in a nursing facility. She denies tobacco, alcohol, or drug use. Family is at the bedside. FAMILY MEDICAL HISTORY: Noncontributory . ALLERGIES: LEVOFLOXACIN and PENICILLIN. PHYSICAL EXAMINATION: VITAL SIGNS: Stable. Blood pressure 97/55, pulse is 89, respiratory rate 20, temperature is 98.3. GENERAL: She is alert, sitting upright in no apparent distress. RESPIRATORY: Breathing comfortably on face mask oxygen 4 liters. HEENT: Normocephalic, atraumatic. ABDOMEN: Soft, nontender, nondistended. MUSCULOSKELETAL: The upper extremities are atraumatic. The left lower extremity has pain with hip m otion. Her left leg is slightly shortened and externally rotated. She is neurovascularly intact dis tally. She has a palpable dorsalis pedis pulse. Sensation intact in the foot. IMAGES: X-rays of the pelvis and left hip demonstrate a displaced 3-part intertrochanteric fracture of the left femur, which is acute. IMPRESSION: Left intertrochanteric femur fracture in an elderly female. PLAN: At this point, the patient has been cleared for surgery. I will take her to the operating yasmine m for intramedullary nail fixation of her left intertrochanteric femur fracture. She is at risk for complication given her COPD and history of coronary artery disease. She will be n.p.o. until after s urgery. She will have appropriate antibiotic prophylaxis and DVT prophylaxis. Her family wants to p elton as well as the patient.
[2017-11-20 09:20] LABS: INR-International Normal Ratio 1.2; PTT 33.6 SEC (22.9-36.1); Prothrombin Time 15.8 SEC (12.0-14.7)
--- NOTE | 2017-11-20 09:39 | RAD ---
RADIOGRAPH CHEST 1 VIEW: Date: 11/20/17. Time: 6:03 a.m. HISTORY: A 77-year-old female for preoperative evaluation. Status post fall. COMPARISON: 11/19/17 at 1:29 a.m. FINDINGS: Interval increase in meniscus which blunts the left lateral costophrenic angle. Mild haziness of lef t lower lung zone. Otherwise, no other interval change. No evidence of pneumothorax. No cardiomega ly. IMPRESSION: 1. Interval increase in volume of small left pleural effusion. 2. Emphysema. 3. Status post coronary artery bypass graft surgery as evidenced for Coronary atherosclerotic disease. 4. Atherosclerosis, ectasia, and tortuosity of thoracic aorta. NATHAN [] POS: [facility]
--- NOTE | 2017-11-20 10:24 | RAD ---
RADIOGRAPH LEFT HIP 3 VIEWS: DATE: 11/20/17. TIME: 5:32 a.m. HISTORY: A 77-year-old female status post fall resulting in left hip trauma. FINDINGS: There is an acute intertrochanteric, comminuted fracture, with mild displacement, without significant ly increased varus angulation. No dislocation of the hip. IMPRESSION: Acute, traumatic, closed, comminuted, displaced left intertrochanteric proximal femoral fracture. POS: [facility]
--- NOTE | 2017-11-20 10:26 | RAD ---
RADIOGRAPH PELVIS 1 VIEW: DATE: 11/20/17. TIME: 5:26 a.m. HISTORY: A 77-year-old female status post acute left hip trauma from fall. FINDINGS: Left intertrochanteric fracture. Pelvic ring is intact. No dislocation of the hips. IMPRESSION: 1. Acute, traumatic, mildly displaced left intertrochanteric proximal femoral fracture. 2. Osteopenia. POS: [facility]
[2017-11-20] MEDS ORDERED: Sterile Water 10 ML ONE (10:46)
[2017-11-20 10:52] LABS: CKMB 0.6 ng/mL (0-6.6); Troponin I 0.012 ng/mL (< 0.028)
[2017-11-20] MEDS ORDERED: Carvedilol 6.25 MG TAB PO SCH (11:00)
--- NOTE | 2017-11-20 11:45 | PRG ---
DATE OF SERVICE: 11/20/2017 ATTENDING PHYSICIAN: Los Carrion M.D. SUBJECTIVE: Ms. Marlow is a 77-year-old female who lives in a nursing facility, who came to us ove rnight after suffering a ground level fall in her bathroom and landing on her left hip. She was eval uated and found to have a left intertrochanteric femur fracture. Orthopedic Surgery was consulted an d she is scheduled to go to the OR this morning for open reduction and internal fixation. This morni ng on exam, she says that her pain is well controlled. She has a Ventimask in place after being brou ght to the floor without oxygen. She was satting in the 70s at that time. Currently, oxygen saturat ion is 92% to 94% on 40% FiO2. OBJECTIVE: VITAL SIGNS: BP 141/81, pulse 94, respirations 16, O2 sat 92% to 94% on 40% FiO2. GENERAL APPEARANCE: The patient is an elderly cachectic female in no acute distress. RESPIRATORY: She has no added work of breathing. Her lung sounds are clear to auscultation bilatera lly. CARDIOVASCULAR: She has a regular rate and rhythm with no murmurs, gallops or rubs. ABDOMEN: Soft, nontender and nondistended. She has normal bowel sounds. MUSCULOSKELETAL: She is neurovascularly intact x4. Her distal pulses are 2+ bilaterally. She has n o edema. NEUROLOGIC: She is A&O x3 this morning. Her GCS is 15. LABORATORY DATA: WBC is 11.2, hemoglobin 12.3, hematocrit 37.1 and platelets 83. Chemistry: Sodium 137, potassium 4.4, chloride 106, bicarbonate 22, BUN 27, creatinine 0.66, glucose 141 and calcium 9 .4. Cardiac panel; CK-MB is 0.6. Troponin I is 0.012. IMAGING DATA: There are no new images to report since admission. ASSESSMENT: 1. Status post ground level fall. 2. Left intertrochanteric femur fracture. 3. Cachexia. 4. History of chronic obstructive pulmonary disease, present on admission. 5. History of coronary artery disease, status post coronary artery bypass graft. PLAN: 1. The patient is to go to the OR today for open reduction and internal fixation of her left hip. 2. Postoperatively, we will optimize the patient's pain control, begin pulmonary toileting and start gastritis prophylaxis. Deep venous thrombosis prophylaxis will be initiated per orthopedic recommen dations. 3. Perioperatively, the patient will be started on Solu-Medrol 40 mg q.6 hours. We will also start her home Coreg. This patient was discussed over the phone with Dr. Braulio Betancourt, who agrees with the assessment and plan.
[2017-11-20] MEDS ORDERED: Clindamycin/D5W 900 mg/50 ml Premix Bag ONE (11:47)
--- NOTE | 2017-11-20 11:57 | OP ---
DATE OF OPERATION: 11/20/2017 OPERATION: Left femur intramedullary nail fixation. PREOPERATIVE DIAGNOSIS: Left intertrochanteric femur fracture. POSTOPERATIVE DIAGNOSIS: Left intertrochanteric femur fracture. COMPLICATIONS: None. SURGEON: Easton Robertson M.D. FIRE PREVENTION FORESTER: Pamela Cordova PA-C ESTIMATED BLOOD LOSS: 150 mL. ANESTHESIA: Spinal. IMPLANTS: Synthes short trochanteric femoral nail with helical blade size 11 mm was used. INDICATIONS: Ms. Marlow is a 77-year-old female who fell. She fractured the left intertrochanteri c femur. She was indicated for intramedullary nail fixation to restore anatomic alignment, promote e good mobilization and provide pain control. Risk of surgery have been reviewed and are extensive giv en her medical history. Her family and the patient have elected to proceed. DESCRIPTION OF OPERATION: Ms. Marlow was identified in the preoperative holding area. Her correct extremity was marked. She was carried to the operating room. She was positioned supine. General a nesthesia was induced. A multidisciplinary timeout was performed. The left lower extremity was prep ped and draped in sterile fashion. We reduced the fracture using traction and rotation. We evaluated this with intraoperative x-ray. O nce we had an anatomic reduction, we were able to make a small incision over the greater trochanter. We inserted a wire through the tip of the trochanter into the intramedullary canal. This was overre luis manuel. We then inserted our 11 mm Synthes short trochanteric nail. This was centered appropriately. We then placed a guidewire into centered position of the femoral head. This was overdrilled. We th en impacted our helical blade appropriately. This was locked into its position dynamically. Finally , we finished the procedure with a distal cross lock screw. We took final x-ray images in orthogonal planes. We then irrigated and closed with 0 Vicryl suture, 2-0 Vicryl suture and andrei for the sk in. A sterile dressing was applied. The patient was taken to the recovery room in good condition wi thout complication.
[2017-11-20] MEDS: Acetaminophen 1,000 MG in Premix Bag 1 BAG IVPB SCH ×2 (12:14→15:56)
[2017-11-20] MEDS: Famotidine 20 MG TAB PO SCH ×2 (12:14→20:51)
[2017-11-20] MEDS: Dextrose 5 % And 0.9 % NaCl 1,000 ML IV SCH ×2 (12:15→18:02)
[2017-11-20] MEDS ORDERED: Clindamycin/D5W 900 MG in Premix Bag 1 BAG IVPB SCH ×2 (12:30→14:00)
[2017-11-20] MEDS ORDERED: Promethazine HCl 25 MG/ML VIAL IM PRN (13:47)
[2017-11-20] MEDS ORDERED: Promethazine HCl 25 MG/ML VIAL SLOW IVP PRN (13:47)
[2017-11-20 15:52] VITALS: BMI 14.7
[2017-11-20] MEDS ORDERED: traMADol HCl 50 MG TAB PO PRN (17:18)
--- NOTE | 2017-11-20 17:40 | RAD ---
THREE INTRAOPERATIVE FLUOROSCOPIC IMAGES LEFT HIP 11/20/17 HISTORY: Internal fixation left hip. COMPARISON: 11/20/17. FINDINGS: There is an antegrade intramedullary fam with dynamic compression screws as well as distal interlocki ng screw transfixing the previously seen intertrochanteric left hip fracture. No hardware complicatio n is seen. There is improvement in alignment of the fracture fragments. IMPRESSION: Internal fixation of intertrochanteric left hip fracture. POS: [facility]
[2017-11-20] MEDS: Acetaminophen 500 MG TAB PO SCH ×2 (18:02→23:55)
[2017-11-20] MEDS: traMADol HCl 50 MG TAB PO SCH (18:03)
--- NOTE | 2017-11-20 18:35 | ADD-HP ---
ADDENDUM This is an addendum to the H and P dictated by Dean De La Fuente, trauma PA, in conjunction with whom I saw the patient. In short, Ms. Marlow is a 77-year-old [facility] patient, who states that she tripped over her own feet and fell onto her side. She had immediate pain in her hip and was unable to get back up and was brought to the emergency room. She has multiple medical problems including diabetes; coronary artery disease , status post bypass; osteoporosis; hypertension; cachexia and stroke in the past with left-sided weakness. Dr. Tam is her optometry teacher, but she has not seen him in some time. He took her off of her Plavix after her stroke and she is not currently on any blood thinners. She has had other falls in the past and is a DNR/DNI. PHYSICAL EXAMINATION: Complete examination performed personally and negative except for the following. GENERAL: She is a frail, cachectic, elderly woman, who weighs about 97 pounds. According to her family, she was down to about 74 pounds at one point and has been able to gain some weight since [facility] the [facility]. EXTREMITIES: She has tenderness of her left hip and a skin tear on her left elbow, but no other traumatic findings. ABDOMEN: Slightly tender to palpation diffusely, which the patient and her family both states are chronic. No palpable masses or hernias are noted. LABORATORY AND DIAGNOSTIC DATA: Imaging is reviewed and is as per the record. CBC and BMP are unremarkable and troponin was normal. ASSESSMENT AND PLAN: Left intertrochanteric femur fracture for which open reduction and internal fixation is planned by Dr. Robertson today. She has multiple medical problems and is DO NOT RESUSCITATE/DO NOT INTUBATE at the [facility]. She would like for this to be continued in the hospital, although she understands that this will need to be suspended for the duration of the operation. Overall, her prognosis is guarded due to her other medical problems and advanced age, but for quality of life purposes, she and her family wish to proceed with surgery. CATIE
[2017-11-20] MEDS ORDERED: Sodium Chloride 0.9% 500 ML IV SCH (20:00)
[2017-11-20] MEDS: Atorvastatin Calcium 10 MG TAB PO SCH (20:51)
[2017-11-20] MEDS: Ibuprofen 600 MG TAB PO SCH (21:03)
[2017-11-20] MEDS: Clindamycin/D5W 900 MG in Premix Bag 1 BAG IVPB SCH (22:57)
[2017-11-21] MEDS: Sodium Chloride 0.9% 1,000 ML IV SCH ×2 (00:08→14:18)
[2017-11-21] MEDS: traMADol HCl 50 MG TAB PO SCH ×5 (00:09→23:05)
[2017-11-21 05:35] LABS: Anion Gap 7 mmol/L (10-20); BUN (Urea Nitrogen) 40 mg/dL (9.8-20.1); Calc. Creatinine Clearance 45 mL/min (70-130); Calcium 8.7 mg/dL (7.8-10.44); Carbon Dioxide 23 mmol/L (23-31); Chloride 109 mmol/L (98-107); Estimated GFR-MDRD 83; Glucose 146 mg/dL (83-110); Phosphorus 2.7 mg/dL (2.3-4.7); Potassium 4.2 mmol/L (3.5-5.1); Sodium 135 mmol/L (136-145)
[2017-11-21] MEDS: Clindamycin/D5W 900 MG in Premix Bag 1 BAG IVPB SCH (06:06)
[2017-11-21 06:08] LABS: #Lymphocytes 0.4 thou/uL (1.20-3.40); #Monocytes 0.2 thou/uL (0.11-0.59); #Neutrophils 4.4 thou/uL (1.40-6.50); %Lymphocytes 7.5 % (21.0-51.0); %Monocytes 3.4 % (0.0-10.0); Hemoglobin 8.4 g/dL (12.0-16.0); Mean Corpuscular HGB CONC 32.1 g/dL (32.0-36.0); Mean Corpuscular Hemoglobin 33.3 pg (27.0-31.0); Mean Platelet Volume 7.7 fL (7.4-10.4); Platelet Count 60 thou/uL (130-400); Red Blood Cell (RBC) Count 2.52 mill/uL (4.20-5.40); White Blood Cell (WBC) Count 4.9 thou/uL (4.8-10.8)
[2017-11-21] MEDS: Ibuprofen 600 MG TAB PO SCH ×3 (06:48→20:31)
[2017-11-21] MEDS: Acetaminophen 500 MG TAB PO SCH ×4 (06:48→23:04)
[2017-11-21] MEDS: Mometasone/Formoterol 120 PUFF INHALER INH SCH ×2 (07:04→18:48)
--- NOTE | 2017-11-21 07:52 | RAD ---
RADIOGRAPH CHEST 1 VIEW: Date: 11/21/17. Time: 7:27 a.m. HISTORY: A 77-year-old female for followup of COPD. COMPARISON: 11/20/17, 6:03 a.m. FINDINGS: Interval development of mildly increased interstitial densities bilaterally, especially in the right lung, with small areas of alveolar confluence at the right mid lung zone and right lower lung zone. No other interval change. IMPRESSION: 1. Interval development of mild interstitial densities, especially on the right, which may represent mild pulmonary interstitial edema. 2. No other interval change. 3. Left pleural effusion. 4. Emphysema. 5. Status post coronary artery bypass graft surgery is evidence for coronary atherosclerotic disease . NATHAN [] POS: [facility]
[2017-11-21] MEDS: Azithromycin 250 MG TAB PO SCH (08:27)
[2017-11-21] MEDS: Famotidine 20 MG TAB PO SCH ×2 (08:30→20:31)
[2017-11-21] MEDS ORDERED: FLU VACC TS2017-18 (>65YR) 0.5 ML SYRINGE IM ONE (09:00)
[2017-11-21] MEDS ORDERED: Digoxin 0.125 MG TAB PO SCH (09:00)
[2017-11-21] MEDS ORDERED: Prevnar 13-Val Conj/PF 0.5 ML SYRINGE IM ONE (09:00)
[2017-11-21] MEDS ORDERED: Enoxaparin Sodium 40 MG/0.4 ML SYRINGE SC SCH (09:00)
--- NOTE | 2017-11-21 16:50 | PRG ---
DATE OF SERVICE: 11/21/2017 ATTENDING PHYSICIAN: Dr. Los Carrion. SUBJECTIVE: Ms. Marlow is a 77-year-old female who suffered a ground level fall and had a left int ertrochanteric femur fracture two nights ago, orthopedic surgery took her to the OR yesterday morning . Postoperatively, she has had some episodes of low blood pressure with minimum blood pressure of 88 /55 yesterday afternoon. She was given albumin plus additional fluid bolus and her blood pressure elizabeth s improved to the low 100s/50s. Currently, the patient is mentating well and reports that her pain i s well controlled. She does report having a worsening cough. She denies having any shortness of madi ath. OBJECTIVE: VITAL SIGNS: BP 109/51, pulse 67, temperature 97.1, respirations 16, O2 sat 97% on 2 liters. GENERAL: Patient is an elderly, somewhat cachectic female in no acute distress. RESPIRATORY: Clear breath sounds bilaterally. She does have some increased work of breathing with a ccessory muscle use. CARDIOVASCULAR: She has a regular rate and rhythm with no murmurs, gallops, or rubs. ABDOMEN: Soft, nontender, nondistended. She has somewhat hypoactive bowel sounds. MUSCULOSKELETAL: She is neurovascularly intact x4. Her distal pulses are 2+ bilaterally. She has n o edema. NEUROLOGIC: She is A&O x3. Her GCS is 15. LABORATORY DATA: WBC is 4.9, hemoglobin 8.4, hematocrit 26.2, platelets 60. Chemistry: Sodium 135, potassium 4.2, chloride 109, bicarbonate 23, BUN 40, creatinine 0.68, glucose 146, calcium 8.7, phos phorus 2.7, magnesium 2.0. BNP is 156.7. Serum cortisol 29.50. IMAGING: Chest x-ray: 1. Interval development of mild interstitial densities, especially on the right which may represent mild pulmonary interstitial edema. 2. No other interval change. 3. Left pleural effusion. 4. Emphysema. 5. Status post coronary artery bypass graft surgery is evidence for coronary atherosclerotic disease . ASSESSMENT: 1. Status post ground level fall. 2. Left intertrochanteric femur fracture status post open reduction internal fixation. 3. Cachexia. 4. History of chronic obstructive pulmonary disease, present on admission. 5. History of coronary artery disease, status post coronary artery bypass graft. PLAN: 1. Continue pain control as ordered. 2. Patient's blood pressure has improved somewhat after receiving fluid resuscitation and albumin an d still somewhat low. Urine output has been 200 mL over the last 9 hours, which puts her at roughly 0.5 mL per kg per hour, which is on the low end of normal. Given the patient's chest x-ray this morn ing showing some interstitial edema. We will hold off on further fluid resuscitation for the moment. Patient will continue to get maintenance IV fluids. Also, we will encourage the patient to drink m ore water now that she is no longer n.p.o. We will continue to follow urine output. Monitor patient 's kidney function and monitor her clinical exam. This patient was seen and discussed over the phone with Dr. Braulio Betancourt who agrees with the assess ent and plan.
[2017-11-21] MEDS: Atorvastatin Calcium 10 MG TAB PO SCH (20:31)
[2017-11-21] MEDS ORDERED: ALPRAZolam 0.5 MG TAB PO SCH (23:00)
[2017-11-22] MEDS: Sodium Chloride 0.9% 1,000 ML IV SCH (00:26)
[2017-11-22] MEDS: Ibuprofen 600 MG TAB PO SCH (05:57)
[2017-11-22] MEDS: Mometasone/Formoterol 120 PUFF INHALER INH SCH (07:26)
[2017-11-22 08:39] LABS: Anion Gap 10 mmol/L (10-20); BUN (Urea Nitrogen) 39 mg/dL (9.8-20.1); Calc. Creatinine Clearance 43 mL/min (70-130); Calcium 9.3 mg/dL (7.8-10.44); Carbon Dioxide 22 mmol/L (23-31); Chloride 112 mmol/L (98-107); Estimated GFR-MDRD 78; Glucose 147 mg/dL (83-110); Magnesium 2.6 mg/dL (1.6-2.6); Phosphorus 2.4 mg/dL (2.3-4.7); Potassium 4.3 mmol/L (3.5-5.1); Sodium 140 mmol/L (136-145)
[2017-11-22] MEDS: Acetaminophen/Codeine 30-300mg Tablet PO SCH ×4 (08:41→17:42)
[2017-11-22] MEDS: ALPRAZolam 0.5 MG TAB PO SCH ×3 (08:42→15:47)
[2017-11-22] MEDS: Azithromycin 250 MG TAB PO SCH (08:42)
[2017-11-22] MEDS: Famotidine 20 MG TAB PO SCH (08:43)
[2017-11-22] MEDS ORDERED: Carvedilol 6.25 MG TAB PO SCH (09:00)
[2017-11-22] MEDS ORDERED: Furosemide 20 MG TAB PO SCH (09:00)
[2017-11-22] MEDS ORDERED: Aspirin 81 mg Enteric Coated Tablet PO SCH ×4 (09:00→21:00)
[2017-11-22] MEDS ORDERED: Ibuprofen 200 MG TAB PO SCH (14:00)
[2017-11-22 17:15] VITALS: BP 163/80; TEMP 96.3
[2017-11-22] MEDS ORDERED: Lisinopril 20 MG TAB PO SCH (21:00)
[2017-11-22] MEDS ORDERED: Temazepam 15 MG CAP PO SCH (21:00)
[2017-11-22] MEDS ORDERED: Non-Formulary Item 1 EACH (Temazepam [Restoril] 30 MG) PO SCH (21:00)
--- NOTE | 2017-11-22 23:52 | DIS ---
DATE OF ADMISSION: 11/20/2017 DATE OF DISCHARGE: 11/22/2017 ADMITTING PHYSICIAN: Dr. Carrion. DISCHARGING PHYSICIAN: Dr. Braulio Betancourt. CHIEF COMPLAINT: Left hip fracture. HOSPITAL COURSE: The patient is a 77-year-old female, who is a long term resident. She was getti ng up to go to the bathroom, when she slipped and fell and landed on her left hip. She was brought t [facility] ED by EMS where she was evaluated and found to have a left hip fracture. The patient elizabeth s a history of COPD with a recent hospitalization in 10/2017. She was given Solu-Medrol perioperativ lisette and taken to the OR on 11/20/2017 for surgical fixation of her left hip with Dr. Easton alvarez. Afterwards, the patient was returned to the surgical floor where she had several episodes of hypotension, the lowest being 88/55. The patient was given fluid resuscitation with normal saline an d albumin. Her blood pressure responded back to her baseline, somewhat hypertensive. The patient wa s started on amlodipine 5 mg p.o. daily, which she takes at home. Patient was also started on azithr omycin, which she had gotten in the ER for shortness of breath the day before being admitted for her hip fracture. The patient will finish a course of this in the alf facility that she is doni [facility] to return to. The patient was discharged on 11/22/2017 to her long term in a stable [facility] n. ADMISSION DIAGNOSIS: Left intertrochanteric hip fracture. DISCHARGE DIAGNOSIS: Left intertrochanteric hip fracture, status post open reduction and internal fi xation. DISCHARGE MEDICATIONS: The patient was given a prescription for azithromycin 250 mg p.o. daily x2 da ys to finish her course of 5 days. The patient was given a prescription for prednisone 10 mg p.o. ev francisco javier morning with breakfast x7 days. Patient also given instructions to begin using 81 mg aspirin b.i .d. This is a change from her previous use of 81 mg aspirin once a day. ACTIVITY INSTRUCTIONS: The patient has orthopedic limitations including weightbearing as tolerated. DIETARY INSTRUCTIONS: Patient is discharged on a regular diet. THERAPY INSTRUCTIONS: The patient to receive physical and occupational therapy in a alf facility. FOLLOWUP INSTRUCTIONS: The patient instructed to follow up with Dr. Easton Robertson. Per his instructions, she is to call and make an appointment. The patient also instructed to follow up with her primary care physician, Dr. Gonzalez, in 14 days. The patient does not have a formal followup visit with Dr. Betancourt. However, he remains available for questions or concerns if they arise. This patient was seen and examined on rounds with Dr. Braulio Betancourt, who agrees with this discharge fidelina rao.
[2017-11-23] MEDS ORDERED: predniSONE 20 MG TAB PO SCH (08:00)
[2017-11-23] MEDS ORDERED: Escitalopram Oxalate 10 mg Tablet PO SCH (09:00)
[2017-11-23] MEDS ORDERED: Amlodipine 5 MG TAB PO SCH (09:00)
--- NOTE | 2017-11-27 20:00 | EKG ---
Test Reason : Blood Pressure : / mmHG Vent. Rate : 091 BPM Atrial Rate : 091 BPM P-R Int : 108 ms QRS Dur : 080 ms QT Int : 364 ms P-R-T Axes : 028 036 055 degrees QTc Int : 447 ms Sinus rhythm with short TX Septal infarct , age undetermined Abnormal ECG Confirmed by ALYSON AGUILERA ([id number]), editorial project manager DAVID GREER ([id number]) on 11/27/2017 7:59:55 PM Referred By: Confirmed By:ALYSON AGUILERA
== END 2017-11-22 17:55 | DRG 481 ==
LOC: ERS 04:52 → SURG A 06:27
PROVIDERS: ADMIT Surgery; ATTEND Surgery
PROC: 0QS736Z Reposition Left Upper Femur with Intramedullary Internal Fixation Device, Percutaneous Approach (ICD-10-PCS; principal; 2017-11-20)
DX: S72.142A Displaced intertrochanteric fracture of left femur, initial encounter for closed fracture (principal); I69.354 Hemiplegia and hemiparesis following cerebral infarction affecting left non-dominant side; I95.9 Hypotension, unspecified; R64 Cachexia; J90 Pleural effusion, not elsewhere classified; Z99.81 Dependence on supplemental oxygen; E11.9 Type 2 diabetes mellitus without complications; Z68.1 Body mass index [BMI] 19.9 or less, adult; J44.9 Chronic obstructive pulmonary disease, unspecified; S51.012A Laceration without foreign body of left elbow, initial encounter; W01.0XXA Fall on same level from slipping, tripping and stumbling without subsequent striking against object, initial encounter; I25.10 Atherosclerotic heart disease of native coronary artery without angina pectoris; Z95.1 Presence of aortocoronary bypass graft; I10 Essential (primary) hypertension; K21.9 Gastro-esophageal reflux disease without esophagitis; F41.9 Anxiety disorder, unspecified; F32.9 Major depressive disorder, single episode, unspecified; R41.0 Disorientation, unspecified; Z66 Do not resuscitate; M81.0 Age-related osteoporosis without current pathological fracture; Z91.81 History of falling; Z87.891 Personal history of nicotine dependence
CPT/HCPCS: 36415; 36416; 71045; 72170; 76001; 80048; 80053; 80162; 82533; 82553; 83735; 83880; 84100; 84484; 85025; 85610; 85730; 90471; 90682; 93005; 94640; 96365; 96374; 96375; A4216; C1713; G0008; G8978-GP-CJ; G8979-GP-CI; G8987-GO-CL; G8988-GO-CJ; J0131; J0456; J1650; J2270; J2405; J2920; J3490; J7620; P9045; Q2036

== ENCOUNTER 2018-03-27 05:40 | Inpatient (IN) | payer MEDICARE ==
[2018-03-27 06:20] LABS: #Eosinphils 0.1 thou/uL (0.0-0.7); #Lymphocytes 1.3 thou/uL (1.20-3.40); #Monocytes 0.6 thou/uL (0.11-0.59); #Neutrophils 7.1 thou/uL (1.40-6.50); %Basophils 0.3 % (0.0-1.0); %Eosinophils 0.9 % (0.0-10.0); %Monocytes 6.6 % (0.0-10.0); %Neutrophils 78.2 % (42.0-75.0); Hemoglobin 12.8 g/dL (12.0-16.0); Mean Corpuscular HGB CONC 34.6 g/dL (32.0-36.0); Mean Corpuscular Hemoglobin 33.4 pg (27.0-31.0); Mean Corpuscular Volume 96.6 fL (78.0-98.0); Mean Platelet Volume 6.6 fL (7.4-10.4); Platelet Count 127 thou/uL (130-400); RBC Distribution Width 12.6 % (11.5-14.5); Red Blood Cell (RBC) Count 3.84 mill/uL (4.20-5.40)
[2018-03-27 06:22] LABS: Bilirubin Negative (Negative); Blood, Urine Small (Negative); Clarity CLEAR (Clear); Glucose, Urine (Dipstick) Negative (Negative); Leukocyte Negative (Negative); Nitrite Positive (Negative); Protein, Urine (Dipstick) Negative (Neg-Trace); Specific Gravity, Urine 1.012 (1.002-1.036)
[2018-03-27 06:25] LABS: Bacteria/HPF Rare-Few HPF (None Seen); Hyaline Casts/LPF 4-6 HYALINE CAST LPF (0-3 Hyaline); Pathc Cast-AUWi Flag 0.87 (0-2.49); Squamous Epithelial 0-3 HPF (0-3); WBC/HPF 0-3 HPF (0-3)
[2018-03-27 06:41] LABS: ALT (SGPT) 30 U/L (8-55); AST (SGOT) 25 U/L (5-34); Albumin 3.6 g/dL (3.4-4.8); Alkaline Phosphatase 108 U/L (40-150); Anion Gap 11 mmol/L (10-20); BUN (Urea Nitrogen) 12 mg/dL (9.8-20.1); Bilirubin, Total 0.9 mg/dL (0.2-1.2); CK (CPK) 21 U/L (29-168); Calc. Creatinine Clearance 0 mL/min (70-130); Calcium 9.5 mg/dL (7.8-10.44); Carbon Dioxide 27 mmol/L (23-31); Chloride 103 mmol/L (98-107); Estimated GFR-MDRD Greater than 90; Globulin 3.6 g/dL (2.4-3.5); Glucose 111 mg/dL (83-110); Potassium 3.5 mmol/L (3.5-5.1); Protein, Total 7.2 g/dL (6.0-8.3); Sodium 137 mmol/L (136-145)
[2018-03-27 06:44] LABS: CKMB 1.1 ng/mL (0-6.6); Troponin I Less than 0.010 ng/mL (< 0.028)
[2018-03-27] MEDS ORDERED: Ketorolac Tromethamine 30 MG/ML VIAL ONE (06:54)
[2018-03-27] MEDS ORDERED: Cefepime 2 GM in Sodium Chloride 0.9% 100 ML IVPB SCH (09:00)
--- NOTE | 2018-03-27 09:43 | CT ---
CTA CHEST WITH 3D VOLUME RENDERING: HISTORY: Cough with shortness of breath.. History of recent hip surgery. FINDINGS: There is no significant filling defect of the pulmonary arterial system to indicate acute pulmonary t hromboembolism. There is pulmonary emphysema. Scattered reticulonodular opacities are present most notably involving the subpleura of the right lower lobe, laterally. There are additional linear pare nchymal densities bilaterally indicating scar and/or atelectasis. Postsurgical findings are seen at the anterior left hemithorax with associated pleural density. There is mild pleural fluid, left grea ter than right. There is increased soft tissue density of the mediastinum limited in visualization b y technique of the exam, although suggests adenopathy of indeterminate etiology. There is dense calc ification of the subcarina, likely granulomatous in etiology. Focal curvilinear pleural-based densit y of the posterior aspect of the right upper lobe suggests an area of atelectasis. There is osseous degenerative change. Scattered vascular disease is present. IMPRESSION: 1. No large, central pulmonary embolus. 2. Chronic obstructive pulmonary disease/pulmonary emphysema. 3. Scattered reticulonodular opacities could relate to an atypical infection. Alternatively, fibros is is a consideration. Given component of nodularity, continued imaging followup with CT thorax in 4 -6 months is recommended for reassessment. 4. Indeterminate etiology of mildly enlarged lymph nodes of the chest. These may be reassessed at t he time of imaging followup. POS: [facility]
[2018-03-27] MEDS ORDERED: Acetaminophen/Codeine 30-300mg Tablet ONE (09:53)
--- NOTE | 2018-03-27 09:56 | RAD ---
CHEST 1 VIEW: COMPARISON: 11/21/17. HISTORY: Dyspnea. FINDINGS: There are sternotomy wires. Atherosclerosis of the aorta is noted. Stable surgical clips in the lef t hemithorax. Heart size is normal. The lungs are hyperinflated. Chronic changes of the lung paren chyma are noted. No pneumothorax or osseous abnormalities. IMPRESSION: Hyperinflation with chronic lung parenchymal changes. POS: [facility]
[2018-03-27 11:53] VITALS: BMI 13.6
[2018-03-27] MEDS ORDERED: ISOVUE-370 76%-LOCM 1 ML ONE (12:55)
[2018-03-27] MEDS ORDERED: guaiFENesin ER 600 MG TAB PO PRN (13:13)
[2018-03-27] MEDS ORDERED: Senokot S 8.6-50 MG TAB PO PRN (13:14)
[2018-03-27] MEDS ORDERED: Polyethylene Glycol 3350 17 GM Packet PO PRN (13:14)
[2018-03-27] MEDS ORDERED: Escitalopram Oxalate 20 mg Tablet PO SCH (13:15)
[2018-03-27] MEDS ORDERED: Amlodipine 5 MG TAB PO SCH (13:15)
[2018-03-27] MEDS ORDERED: Estradiol 1 MG TAB PO SCH (13:15)
[2018-03-27] MEDS ORDERED: Digoxin 0.125 MG TAB PO SCH (13:15)
[2018-03-27] MEDS ORDERED: Aspirin 81 mg Enteric Coated Tablet PO SCH (13:15)
[2018-03-27] MEDS: ALPRAZolam 0.5 MG TAB PO SCH ×2 (13:26→20:19)
[2018-03-27] MEDS: Acetaminophen/Codeine 30-300mg Tablet PO SCH ×2 (16:42→20:27)
[2018-03-27] MEDS: metFORMIN 500 MG TAB PO SCH (17:23)
[2018-03-27] MEDS: Mometasone/Formoterol 120 PUFF INHALER INH SCH (18:22)
[2018-03-27] MEDS ORDERED: Potassium Chloride 20 MEQ TAB PO SCH (18:30)
[2018-03-27] MEDS: Lisinopril 20 MG TAB PO SCH (20:19)
[2018-03-27] MEDS: Carvedilol 6.25 MG TAB PO SCH (20:20)
[2018-03-27] MEDS: guaiFENesin ER 600 MG TAB PO SCH (20:25)
[2018-03-27] MEDS: Temazepam 15 MG CAP PO SCH (20:25)
[2018-03-27] MEDS: Simvastatin 20 MG TAB PO SCH (20:26)
[2018-03-27] MEDS: Aspirin 81 mg Enteric Coated Tablet PO SCH (20:26)
[2018-03-27] MEDS: Ascorbic Acid 500 mg Chewable Tablet PO SCH (20:26)
[2018-03-27] MEDS: Famotidine 20 MG TAB PO SCH (20:26)
--- NOTE | 2018-03-28 04:25 | HP ---
DATE OF ADMISSION: 03/27/2018 REASON FOR ADMISSION AND CHIEF COMPLAINT: Cough, shortness of breath, fever. HISTORY OF PRESENT ILLNESS: Ms. Marlow is a 77-year-old female with past medical history of end-stage COPD, hypertension, coronary artery disease, has not been feeling well for the last 2 d ays and has been having coughing with yellow sputum, has low-grade fever, also getting short of breat h as well. The patient also became hypoxic even with O2 3 L nasal cannula. The cough is productive and worsening in the last 2 days, shortness of breath get worsening. So, in view of her hypoxia and worsening cough and fever, patient was sent to the hospital. In the ER, patient was evaluated and fo und to have pneumonia. The patient received a dose of cefepime and vancomycin with IV fluid bolus as well and also DuoNebs. She is being admitted for further evaluation and management. PAST MEDICAL HISTORY: 1. Hypertension. 2. Coronary artery disease, status post CABG. 3. End-stage COPD. 4. Anxiety disorder. 5. Chronic back pain. 6. Protein-calorie malnutrition. 7. Gastroesophageal reflux disease. 8. History of cerebrovascular accident with right cerebellar ataxia. 9. History of subarachnoid hemorrhage. 10. History of osteoporosis. PAST SURGICAL HISTORY: 1. Status post CABG. 2. Status post ORIF of left hip fracture. CURRENT MEDICATIONS: Tylenol No. 3 q.i.d. p.r.n., Xanax 0.5 t.i.d., amlodipine 5 mg daily, vitamin C b.i.d., aspirin 81 mg daily, Coreg 6.25 b.i.d., digoxin 0.125 daily, Lexapro 20 mg daily, estradiol 0.5 mg daily, Pepcid 20 b.i.d., Breo Ellipta 1 inhaler daily, DuoNebs q.i.d., lisinopril 20 mg b.i.d. , metformin 500 daily and 250 in the evening, MiraLax 17 g daily, simvastatin 20 mg daily, Restoril 3 0 mg at bedtime. ALLERGIES: PENICILLIN. FAMILY HISTORY: Nothing contributory. SOCIAL HISTORY: [facility] lives [facility] the [facility]. No history of alcohol intake. Used to smoke a p ack a day, quit smoking a few months ago. REVIEW OF SYSTEMS: Cardiovascular: No chest pain. Has shortness of breath. Respiratory: Has coug h, fever. Gastrointestinal: No nausea or vomiting or abdominal pain. Central nervous system: No h eadache, no dizziness. PHYSICAL EXAMINATION: GENERAL: The patient is alert, awake, oriented x3. VITAL SIGNS: Temperature 100.6, pulse 97, respirations 20, blood pressure 120/90. HEENT: Head is normocephalic, atraumatic. Pupils are equal and reactive to light. Nasopharynx is p donato and dry. Hard and soft palate, no lesions seen. SKIN: Skin turgor decreased. NECK: Supple. No JVD. LUNGS: Breath sounds diminished bilaterally. Percussion dull bilaterally. Expiratory wheeze presen t. HEART: S1, S2 regular. ABDOMEN: Soft, no distention, no tenderness, no organomegaly. Bowel sounds are present. RECTAL: Deferred. CENTRAL NERVOUS SYSTEM: No focal deficit. LABORATORY AND X-RAY FINDINGS: CBC shows WBC 9, hemoglobin 12, hematocrit 37, platelets 97,000. Met abolic panel: Sodium 137, potassium 3.5, chloride 103, CO2 of 27, urea nitrogen 12, creatinine 0.7, glucose 111. Urinalysis negative. Chest x-ray showed COPD changes with chronic parenchymal changes. CT angio chest revealed no evidence of pulmonary embolism, showed pulmonary emphysema as well as sc attered reticulonodular opacities, which could related to atypical infection. EKG shows normal sinus rhythm, no acute ST-T wave changes. ASSESSMENT: 1. Possible pneumonia. 2. Chronic obstructive pulmonary disease acute exacerbation. 3. Hypertension. 4. Coronary artery disease, status post coronary artery bypass graft. 5. Anxiety disorder. 6. Protein-calorie malnutrition. 7. Status post open reduction and internal fixation of left hip fracture. PLAN: 1. Vital signs q.4 hours. 2. Activity: As tolerated. 3. Allergies: PENICILLIN. 4. Diet: Cardiac. 5. Cefepime 1 gram IV piggyback q.8 hours. 6. Continue [facility] medications and DuoNebs 1 unit q.i.d. 7. Solu-Medrol 20 mg IVP q.6 hours.
[2018-03-28] MEDS: Mometasone/Formoterol 120 PUFF INHALER INH SCH ×2 (06:53→18:29)
[2018-03-28] MEDS: Aspirin 81 mg Enteric Coated Tablet PO SCH ×2 (08:11→20:54)
[2018-03-28] MEDS: Lisinopril 20 MG TAB PO SCH ×2 (08:11→20:53)
[2018-03-28] MEDS: metFORMIN 500 MG TAB PO SCH ×2 (08:11→17:15)
[2018-03-28] MEDS: Famotidine 20 MG TAB PO SCH ×2 (08:11→21:04)
[2018-03-28] MEDS: Ascorbic Acid 500 mg Chewable Tablet PO SCH ×2 (08:11→20:56)
[2018-03-28] MEDS: ALPRAZolam 0.5 MG TAB PO SCH ×3 (08:11→20:55)
[2018-03-28] MEDS: Escitalopram Oxalate 20 mg Tablet PO SCH (08:12)
[2018-03-28] MEDS: Carvedilol 6.25 MG TAB PO SCH ×2 (08:12→20:55)
[2018-03-28] MEDS: guaiFENesin ER 600 MG TAB PO SCH ×2 (08:12→20:55)
[2018-03-28] MEDS: Acetaminophen/Codeine 30-300mg Tablet PO SCH ×3 (08:12→20:54)
[2018-03-28] MEDS: Amlodipine 5 MG TAB PO SCH (08:13)
[2018-03-28] MEDS ORDERED: Cefepime 1 GM in Sodium Chloride 0.9% 100 ML IVPB SCH (09:00)
[2018-03-28] MEDS: Estradiol 1 MG TAB PO SCH (10:24)
[2018-03-28] MEDS: Temazepam 15 MG CAP PO SCH (20:54)
[2018-03-28] MEDS: Simvastatin 20 MG TAB PO SCH (20:54)
[2018-03-29] MEDS: Mometasone/Formoterol 120 PUFF INHALER INH SCH ×2 (06:39→18:24)
[2018-03-29] MEDS: Estradiol 1 MG TAB PO SCH (08:58)
[2018-03-29] MEDS: metFORMIN 500 MG TAB PO SCH ×2 (08:59→16:46)
[2018-03-29] MEDS ORDERED: Cefepime 1 GM, Admixture Fee 1 EACH in Sodium Chloride 0.9% 100 ML IVPB SCH (09:00)
[2018-03-29] MEDS: Acetaminophen/Codeine 30-300mg Tablet PO SCH ×3 (09:01→20:12)
[2018-03-29] MEDS: Carvedilol 6.25 MG TAB PO SCH ×2 (09:01→20:14)
[2018-03-29] MEDS: Escitalopram Oxalate 20 mg Tablet PO SCH (09:02)
[2018-03-29] MEDS: Ascorbic Acid 500 mg Chewable Tablet PO SCH ×2 (09:03→20:13)
[2018-03-29] MEDS: ALPRAZolam 0.5 MG TAB PO SCH ×3 (09:03→20:13)
[2018-03-29] MEDS: Amlodipine 5 MG TAB PO SCH (09:03)
[2018-03-29] MEDS: Digoxin 0.125 MG TAB PO SCH (09:03)
[2018-03-29] MEDS: Aspirin 81 mg Enteric Coated Tablet PO SCH ×2 (09:04→20:16)
[2018-03-29] MEDS: Lisinopril 20 MG TAB PO SCH ×2 (09:04→20:14)
[2018-03-29] MEDS: Famotidine 20 MG TAB PO SCH ×2 (09:04→20:14)
[2018-03-29] MEDS: guaiFENesin ER 600 MG TAB PO SCH ×2 (09:05→20:14)
[2018-03-29] MEDS: Simvastatin 20 MG TAB PO SCH (20:15)
[2018-03-29] MEDS: Temazepam 15 MG CAP PO SCH (20:15)
[2018-03-30] MEDS: Mometasone/Formoterol 120 PUFF INHALER INH SCH ×2 (07:58→18:44)
[2018-03-30] MEDS: Ascorbic Acid 500 mg Chewable Tablet PO SCH ×2 (08:58→20:32)
[2018-03-30] MEDS: Acetaminophen/Codeine 30-300mg Tablet PO SCH ×3 (08:59→20:31)
[2018-03-30] MEDS: Lisinopril 20 MG TAB PO SCH ×2 (08:59→20:32)
[2018-03-30] MEDS: Amlodipine 5 MG TAB PO SCH (09:00)
[2018-03-30] MEDS: predniSONE 20 MG TAB PO SCH (09:00)
[2018-03-30] MEDS: metFORMIN 500 MG TAB PO SCH ×2 (09:00→18:01)
[2018-03-30] MEDS: Carvedilol 6.25 MG TAB PO SCH ×2 (09:00→20:32)
[2018-03-30] MEDS: Escitalopram Oxalate 20 mg Tablet PO SCH (09:00)
[2018-03-30] MEDS: guaiFENesin ER 600 MG TAB PO SCH ×2 (09:00→20:32)
[2018-03-30] MEDS: Estradiol 1 MG TAB PO SCH (09:01)
[2018-03-30] MEDS: Aspirin 81 mg Enteric Coated Tablet PO SCH ×2 (09:01→20:32)
[2018-03-30] MEDS: Famotidine 20 MG TAB PO SCH ×2 (09:01→20:32)
[2018-03-30] MEDS: ALPRAZolam 0.5 MG TAB PO SCH ×3 (09:01→20:31)
[2018-03-30] MEDS ORDERED: Milk Of Magnesia 30 ML UDCUP PO PRN (09:42)
[2018-03-30] MEDS ORDERED: Cefdinir 300 MG CAP PO SCH (09:45)
--- NOTE | 2018-03-30 15:28 | PQF ---
CLINICAL DOCUMENTATION IMPROVEMENT CLARIFICATION FORM: ICD-10 Updated PLEASE DO AN ADDENDUM TO THE PROGRESS NOTE WITH ANY DOCUMENTATION UPDATES OR ADDITIONS AND CARRY THROUGH TO DC SUMMARY. THANK YOU. DATE: 03/30/18 ATTN: Dr. Gonzalez Please exercise your independent, professional judgment in responding to the clarification form. Clinical indicators are provided on the bottom of this form for your review Please check appropriate box(s): [ ] Acute Respiratory Failure: [ ] with Hypoxia [ ] with Hypercapnia [ y ] Acute On Chronic Respiratory Failure: [ ] with Hypoxia [ ] with Hypercapnia [ ] Acute Respiratory Failure due to: (etiology) [ ] Chronic Respiratory Failure only [ ] with Hypoxia [ ] with Hypercapnia [ ] Other diagnosis [ ] Unable to determine In addition, please specify: Present on Admission (POA): [ y ] Yes [ ] No [ ] Unable to determine For continuity of documentation, please document condition throughout progress notes and discharge summary. Thank You. CLINICAL INDICATORS - SIGNS / SYMPTOMS / LABS ED RECORD 03/27: PT NORMALLY WEARS 3L NC & WAS 88% W/ THAT THIS MORNING. VS: RESP: 20-24, O2 SAT 93 ON 4L OXYGEN O2 SAT 96 ON ROOM AIR H&P 03/27: PT ALSO BECAME HYPOXIC EVEN W/ O2 3L NASAL CANNULA. RESP: PRE-TREATMENT VS 03/27: 93-94 O2 SAT 3L OXYGEN NC RISKS: H&P 03/27: 77 YO. LIVES AT [facility]. QUIT SMOKING A FEW MONTHS AGO. POSSIBLE PNEUMONIA, COPD ACUTE EXAC..CAD. PROTEIN-CALORIE MALNUTRITION. TREATMENT: ORDER 03/27: DUONEB QID - RT ORDER 03/28: RESP: O2 TO KEEP SATS 92% ORDER 03/27: SOLU-MEDROL IVP Q 6 HR. DC'D 03/29 Thank you, Nataly (This form is maintained as a part of the permanent medical record) 2014 [employer] All Rights Reserved Nataly Reynolds RN, BSN [email or web address] Office: [phone] [facility]
--- NOTE | 2018-03-30 15:53 | PQF ---
CLINICAL DOCUMENTATION IMPROVEMENT CLARIFICATION FORM: ICD-10 Updated PLEASE DO AN ADDENDUM TO THE PROGRESS NOTE WITH ANY DOCUMENTATION UPDATES OR ADDITIONS AND CARRY THROUGH TO DC SUMMARY. THANK YOU. DATE: 03/30/18 ATTN: Dr. Gonzalez Please exercise your independent, professional judgment in responding to the clarification form. Clinical indicators are provided on the bottom of this form for your review Please check appropriate box(s): [ ] Aspiration Pneumonia [ ] Empirically treating Gram Negative Pneumonia [ ] Empirically treating Anaerobic Pneumonia [ ] Pneumonia secondary to [ ] Simple Pneumonia (community acquired - nosocomial) [ y] Pneumonia of unknown etiology [ ] Other diagnosis [ ] Unable to determine In addition, please specify: Present on Admission (POA): [ ] Yes [ ] No [ ] Unable to determine For continuity of documentation, please document condition throughout progress notes and discharge summary. Thank You. CLINICAL INDICATORS - SIGNS / SYMPTOMS / LABS H&P 03/27: NOT BEEN FEELING WELL FOR LAST 2 DAYS, & HAS BEEN HAVING COUGHING W/ YELLOW SPUTUM, LOW-GRADE FEVER, ALSO GETTING SOB WELL. THE PT ALSO BECAME HYPOXIC EVEN W/ O2 3L NC. IN THE ER PT WAS EVALUATED & FOUND TO HAVE PNEUMONIA. RECEIVED A DOSE OF CEFEPIME & VANCOMYCIN VS: TEMP 100.6, PULSE 97, RESP 20, BP 120/ 90 PN 03/28-03/29: PNEUMONIA RISKS: H&P 03/27: 77 YO. LIVES AT [facility]. HX OF END-STAGE COPD, HTN, CAD. PROTEIN-CALORIE MALNUTRITION. . TREATMENT: ORDER 03/28: CEFEPIME 1 GM IV Q AM. DC'D 03/29 ORDER 03/27: SOLU-MEDROL 20 MG IV Q 6 HR. DC'D 03/29 ORDER 03/30: OMNICEF 300MG PO BID Thank you, Nataly (This form is maintained as a part of the permanent medical record) 2014 [employer], [address]. All Rights Reserved Nataly Reynolds RN, BSN [email or web address] Office: [phone] [facility]
--- NOTE | 2018-03-30 16:13 | PQF ---
CLINICAL DOCUMENTATION IMPROVEMENT CLARIFICATION FORM: ICD-10 Updated PLEASE DO AN ADDENDUM TO THE PROGRESS NOTE WITH ANY DOCUMENTATION UPDATES OR ADDITIONS AND CARRY THROUGH TO DC SUMMARY. THANK YOU. Date: 03/30/18 ATTN: Dr. Gonzalez Please exercise your independent, professional judgment in responding to the clarification form. Clinical indicators are provided on the bottom of this form for your review Please check appropriate box(s): [y ] Protein Calorie Malnutrition: [ ] Mild [ y ] Moderate [ ] Severe [ ] Other Malnutrition (please specify) [ ] Other diagnosis [ ] Unable to determine In addition, please specify: Present on Admission (POA): [ y] Yes [ ] No [ ] Unable to determine CLINICAL INDICATORS - SIGNS / SYMPTOMS / LABS H&P 03/27: PROTEIN-CALORIE MALNUTRITION. 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 SEVERE FAT WASTING NOTED TO ORBIT, RIBS / CHEST, & TRICEPS. BMI OF 13.6 7% WT LOSS IN THE LAST 4 MONTHS. RISKS: H&P 03/27: 77 [facility]O. [facility] HX OF END-STAGE COPD, HTN, CAD. PROTEIN-CALORIE MALNUTRITION. . 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 ASSESSMENT: LOW BMI TRIGGER ORDER 03/29:DIET SUPPLEMENT TID Moderate Malnutrition (in acute illness) Energy Intake: <75% of estimated energy requirement for > 7 days Weight Loss: 1-2%/1 week; 5%/ 1 month; 7.5%/3 months Other: mild body fat loss; mild muscle mass loss; mild fluid accumulation ; Severe Malnutrition (in acute illness) Energy Intake: < 50% of estimated energy requirement for > 5 days Weight Loss: >1-2%/1 week; >5%/1 month; >7.5%/3 months Other: moderate body fat loss; moderate muscle mass loss; moderate- severe fluid accumulation; measurably reduced stockroom selector strength Moderate Malnutrition (in chronic illness) Energy Intake: <75% of estimated energy requirement for >1 month Weight Loss: 5%/1 month; 7.5%/3 months; 10%/6 months; 20%/1 year Other: mild body fat loss; mild muscle mass loss; mild fluid accumulation Severe Malnutrition (in chronic illness) Energy Intake: <75% of estimated energy requirement for >1 month Weight Loss: >5%/1 month; >7.5%/3 months; >10%/6 months; >20%/1 year Other: severe body fat loss; severe muscle mass loss; severe fluid accumulation; measurably reduced stockroom selector strength Thank you, Nataly (This form is maintained as a part of the permanent medical record) 2015 [employer]. All Rights Reserved Nataly Reynolds RN, BSN [email or web address] Office: [phone] [facility]
[2018-03-30] MEDS: Temazepam 15 MG CAP PO SCH (20:31)
[2018-03-30] MEDS: Simvastatin 20 MG TAB PO SCH (20:32)
[2018-03-30] MEDS: Cefdinir 300 MG CAP PO SCH (20:32)
[2018-03-31] MEDS: Mometasone/Formoterol 120 PUFF INHALER INH SCH (07:06)
[2018-03-31] MEDS: Escitalopram Oxalate 20 mg Tablet PO SCH (08:20)
[2018-03-31] MEDS: Acetaminophen/Codeine 30-300mg Tablet PO SCH ×2 (08:20→15:18)
[2018-03-31] MEDS: Lisinopril 20 MG TAB PO SCH (08:20)
[2018-03-31] MEDS: Cefdinir 300 MG CAP PO SCH (08:21)
[2018-03-31] MEDS: Ascorbic Acid 500 mg Chewable Tablet PO SCH (08:21)
[2018-03-31] MEDS: metFORMIN 500 MG TAB PO SCH (08:21)
[2018-03-31] MEDS: predniSONE 20 MG TAB PO SCH (08:21)
[2018-03-31] MEDS: Famotidine 20 MG TAB PO SCH (08:24)
[2018-03-31] MEDS: Aspirin 81 mg Enteric Coated Tablet PO SCH (08:25)
[2018-03-31] MEDS: ALPRAZolam 0.5 MG TAB PO SCH ×2 (08:25→15:19)
[2018-03-31] MEDS: guaiFENesin ER 600 MG TAB PO SCH (08:25)
[2018-03-31] MEDS: Amlodipine 5 MG TAB PO SCH (10:26)
[2018-03-31] MEDS: Digoxin 0.125 MG TAB PO SCH (10:26)
[2018-03-31] MEDS: Carvedilol 6.25 MG TAB PO SCH (10:26)
[2018-03-31] MEDS: Estradiol 1 MG TAB PO SCH (10:27)
[2018-03-31 11:18] VITALS: BP 144/74; TEMP 98
--- NOTE | 2018-04-01 10:11 | DIS ---
DATE OF ADMISSION: 03/27/2018 DATE OF DISCHARGE: 03/31/2018 ADMITTING DIAGNOSES: 1. Possible pneumonia. 2. Chronic obstructive pulmonary disease with acute exacerbation. 3. Hypertension. 4. Coronary artery disease, status post coronary artery bypass grafting. 5. Anxiety disorder. 6. Protein-calorie malnutrition. 7. Status post open reduction internal fixation of left hip fracture. FINAL DIAGNOSES: 1. Pneumonia. 2. Chronic obstructive pulmonary disease acute exacerbation, improved. 3. Hypertension. 4. Coronary artery disease. 5. Anxiety disorder. 6. Protein-calorie malnutrition. BRIEF SUMMARY OF HOSPITAL COURSE: Ms. Marlow is a 77-year-old female admitted because of cough, low-grade fever, and not feeling well. The patient was found to have pneumonia and also COPD exacerbation. The patient was started on IV antibiotics with cefepime and also Solu-Medrol and DuoNeb. In the next 2-3 days, the patient's fever resolved. Her shortness of breath improved. Her cough became less. The patient was able to ambulate with help. In view of improvement, the patient was discharged. At the time of discharge, she was stable. Her vital signs were stable. Lungs were clear. Heart sounds were regular. Abdomen was soft, nontender. Bowel sounds present. DISCHARGE MEDICATIONS: Include metformin 500 in the morning and 250 in the evening, lisinopril 20 mg b.i.d., Lexapro 20 mg daily, Xanax 0.5 t.i.d., digoxin 0.125 daily, DuoNeb q.i.d., Tylenol with Codeine 1 t.i.d. p.r.n., Coreg 6.25 b.i.d., amlodipine 5 mg daily, estradiol 0.5 daily, aspirin 81 mg b.i.d., simvastatin 20 mg daily, vitamin C 500 b.i.d., temazepam 30 mg at bedtime, MiraLax 17 grams daily, Senokot p.r.n., Mucinex 600 b.i.d. for 10 days, Breo Ellipta 1 inhalation daily; Omnicef 300 b.i.d. for 10 days; and prednisone in tapering doses. MTDD
== END 2018-03-31 15:45 | DRG 193 ==
LOC: ERS 05:40 → T4-A 10:17
PROVIDERS: ADMIT Internal Medicine; ATTEND Internal Medicine
DX: J18.9 Pneumonia, unspecified organism (principal); J96.20 Acute and chronic respiratory failure, unspecified whether with hypoxia or hypercapnia; J44.1 Chronic obstructive pulmonary disease with (acute) exacerbation; E44.0 Moderate protein-calorie malnutrition; Z68.1 Body mass index [BMI] 19.9 or less, adult; J44.0 Chronic obstructive pulmonary disease with (acute) lower respiratory infection; I10 Essential (primary) hypertension; I25.10 Atherosclerotic heart disease of native coronary artery without angina pectoris; F41.9 Anxiety disorder, unspecified; K21.9 Gastro-esophageal reflux disease without esophagitis; M81.0 Age-related osteoporosis without current pathological fracture; G89.29 Other chronic pain; M54.9 Dorsalgia, unspecified; Z87.891 Personal history of nicotine dependence; Z86.73 Personal history of transient ischemic attack (TIA), and cerebral infarction without residual deficits; Z88.0 Allergy status to penicillin; Z79.82 Long term (current) use of aspirin; Z79.899 Other long term (current) drug therapy; Z95.1 Presence of aortocoronary bypass graft
CPT/HCPCS: 36415; 36416; 51701; 71045; 71275; 80053; 81003; 81015; 82550; 82553; 83605; 83880; 84484; 85025; 87040; 93005; 94640; 94760; 96365; 96367; 96375; A4353; J0692; J1885; J2920; J3370; J7050; J7506; J7620

== ENCOUNTER 2018-04-03 20:28 | Inpatient (IN) | payer MEDICARE ==
[2018-04-03 21:35] LABS: #Lymphocytes 1.1 thou/uL (1.20-3.40); #Monocytes 0.5 thou/uL (0.11-0.59); #Neutrophils 5.6 thou/uL (1.40-6.50); %Basophils 0.2 % (0.0-1.0); %Eosinophils 0.4 % (0.0-10.0); %Lymphocytes 15.6 % (21.0-51.0); %Monocytes 7.1 % (0.0-10.0); %Neutrophils 76.7 % (42.0-75.0); Hemoglobin 12.4 g/dL (12.0-16.0); Mean Corpuscular HGB CONC 33.7 g/dL (32.0-36.0); Mean Corpuscular Volume 97.9 fL (78.0-98.0); Mean Platelet Volume 6.3 fL (7.4-10.4); Platelet Count 194 thou/uL (130-400); RBC Distribution Width 12.3 % (11.5-14.5); Red Blood Cell (RBC) Count 3.76 mill/uL (4.20-5.40); White Blood Cell (WBC) Count 7.3 thou/uL (4.8-10.8)
[2018-04-03] MEDS ORDERED: Ondansetron HCl/PF 4 MG/2 ML Vial ONE (21:49)
--- NOTE | 2018-04-03 21:53 | RAD ---
AP VIEW CHEST: 04/03/2018 HISTORY: [facility] History of recent left femoral fracture. COMPARISON: 03/27/2018 FINDINGS: AP view chest demonstrates sternotomy wires seen. Mild cardiomegaly is seen. No evidence of effusio n is seen. no evidence of pneumonia or pneumothorax is seen. Osseous structures are intact. IMPRESSION: No evidence of acute intrathoracic abnormalities noted. POS: [facility]
--- NOTE | 2018-04-03 21:57 | RAD ---
RIGHT HIP TWO VIEWS: HISTORY: Fall. Right hip pain. TECHNIQUE: AP and frogleg views of the right hip are obtained. FINDINGS: Images demonstrate an intertrochanteric fracture involving the proximal right femur. Proximal and di stal fracture fragments are mildly displaced. Calcifications are seen in the superficial femoral artery. IMPRESSION: Intertrochanteric right femoral fracture. POS: [facility]
[2018-04-03 21:58] LABS: CKMB 1.6 ng/mL (0-6.6); Troponin I Less than 0.010 ng/mL (< 0.028)
--- NOTE | 2018-04-03 21:59 | RAD ---
RIGHT KNEE FOUR VIEWS: HISTORY: Fall. Right knee pain. TECHNIQUE: AP, lateral, and both oblique views of the right knee are obtained. FINDINGS: Images demonstrate what appears to be a suprapatellar joint effusion, with a possible fluid-fluid lev el within it. No definite evidence of distal femoral or proximal tibial fractures seen. No other significant abnor malities noted. IMPRESSION: There is a suprapatellar joint effusion noted. No definite evidence of right knee fracture is seen. POS: [facility]
[2018-04-03 22:03] LABS: ALT (SGPT) 150 U/L (8-55); AST (SGOT) 91 U/L (5-34); Albumin 3.5 g/dL (3.4-4.8); Alkaline Phosphatase 112 U/L (40-150); Anion Gap 10 mmol/L (10-20); BUN (Urea Nitrogen) 25 mg/dL (9.8-20.1); Bilirubin, Total 0.4 mg/dL (0.2-1.2); CK (CPK) 21 U/L (29-168); Calc. Creatinine Clearance 0 mL/min (70-130); Calcium 9.1 mg/dL (7.8-10.44); Carbon Dioxide 32 mmol/L (23-31); Chloride 104 mmol/L (98-107); Estimated GFR-MDRD 79; Globulin 2.9 g/dL (2.4-3.5); Glucose 177 mg/dL (83-110); Potassium 4.3 mmol/L (3.5-5.1); Protein, Total 6.4 g/dL (6.0-8.3); Sodium 142 mmol/L (136-145)
[2018-04-03] MEDS ORDERED: Acetaminophen 500 MG TAB ONE (23:07)
[2018-04-03] MEDS ORDERED: traMADol HCl 50 MG TAB PO PRN (23:16)
[2018-04-03] MEDS ORDERED: hydrALAZINE 20 MG/ML VIAL SLOW IVP PRN (23:17)
[2018-04-03] MEDS ORDERED: Dextrose 50% Abboject 50 ML SYRINGE SLOW IVP PRN ×2 (23:17→23:32)
[2018-04-03] MEDS ORDERED: Dextrose 5% in Water 1,000 ML IV PRN ×2 (23:17→23:32)
[2018-04-03] MEDS ORDERED: Ondansetron ODT 4 MG TAB PO PRN (23:17)
[2018-04-03] MEDS ORDERED: Ondansetron HCl/PF 4 MG/2 ML Vial IVP PRN (23:17)
[2018-04-04] MEDS: Ketorolac Tromethamine 30 MG/ML VIAL IVP SCH ×4 (00:12→17:43)
[2018-04-04] MEDS: Sodium Chloride 0.9% 1,000 ML IV SCH ×2 (00:12→16:51)
[2018-04-04] MEDS: Acetaminophen 1,000 MG in Premix Bag 1 BAG IVPB SCH ×3 (00:13→12:02)
[2018-04-04] MEDS: traMADol HCl 50 MG TAB PO SCH ×4 (00:13→17:44)
[2018-04-04 00:55] VITALS: BMI 15.5
[2018-04-04 01:37] LABS: Bilirubin Negative (Negative); Blood, Urine Negative (Negative); Clarity CLEAR (Clear); Glucose, Urine (Dipstick) Negative (Negative); Leukocyte Negative (Negative); Nitrite Negative (Negative); Protein, Urine (Dipstick) Negative (Neg-Trace); Specific Gravity, Urine 1.026 (1.002-1.036); pH, Urine 6.5 (5.0-9.0)
--- NOTE | 2018-04-04 02:05 | HP ---
DATE OF ADMISSION: 04/03/2018 ATTENDING PHYSICIAN: Dr. Patterson. TRAUMA ACTIVATION: Not applicable. HISTORY OF PRESENT ILLNESS: Yomaira Marlow is a 77-year-old female, [facility]. Per patient, she was ambulating in her room, tripped over her shoes and fell. She had immediate onset of right hip pain. She was evaluated in the emergency room and found to have a right intertrochanteric hip fracture. Per patient, she did not hit her head or lose consci ousness at any time. She has a GCS of 15. Of note, the patient was recently admitted approximately 1 week ago for pneumonia. She also had an admission back in 11/2017 for a left hip fracture. Orthop edic surgery has been notified and Trauma services was asked to admit. Upon my evaluation, the patie nt has a chief complaint of right hip pain 10/10. Improved with pain medication and worsened with mo vement. Pain is constant. ALLERGIES: LEVAQUIN and PENICILLIN. HOME MEDICATIONS: Include Cefdinir 300 mg p.o. b.i.d., Senokot S b.i.d., MiraLax 17 grams p.o. daily , estradiol 0.5 mg p.o. daily, digoxin 125 mcg p.o. daily, Norvasc 5 mg p.o. daily, Restoril 30 mg p. o. at bedtime, Coreg 6.25 mg p.o. b.i.d., lisinopril 20 mg p.o. b.i.d., Tylenol #3 t.i.d., Breo Ellip ta 100 mcg/25 mcg daily, DuoNeb q.6 hours p.r.n., aspirin 81 mg b.i.d., guaifenesin 600 mg q.12 hours , Lexapro 20 mg p.o. daily, metformin 500 mg p.o. daily, Pepcid 20 mg p.o. b.i.d., simvastatin 20 mg p.o. daily, Xanax 0.5 mg t.i.d. p.r.n., prednisone 40 mg p.o. daily and then taper. CHRONIC MEDICAL ILLNESSES: Include COPD, on home O2, 2 liters nasal cannula; coronary artery disease , status post CABG; hypertension; diabetes; osteoporosis; GERD; history of cerebrovascular accident w ith left-sided weakness; recent pneumonia. PAST SURGICAL HISTORY: Significant for left hip surgery, coronary artery bypass x4, cholecystectomy, hysterectomy, and back surgery. SOCIAL HISTORY: Patient is a resident at [facility]. She denies alcohol, tobacco, or i llicit drug use. She typically ambulates with the use of a walker or uses a wheelchair. FAMILY HISTORY: Noncontributory in this age patient. REVIEW OF SYSTEMS: A 10-point review of systems was obtained, and essentially negative except as ind icated in the HPI with the exception of a cough and increased sputum production with some shortness o f breath secondary to the pneumonia that was diagnosed last week. PHYSICAL EXAMINATION: VITAL SIGNS: Temperature 97.6, pulse 69, blood pressure 180/88, respirations 18, O2 sat 94% on 2 lit ers nasal cannula. GENERAL: Elderly-appearing female in no acute distress, resting in bed. PULMONARY: Normal work of breathing, symmetric rise. LUNGS: Clear to auscultation bilaterally. CARDIOVASCULAR: Regular rate and rhythm. GASTROINTESTINAL: Soft, nontender, nondistended. MUSCULOSKELETAL: Bilateral upper extremities with scattered areas of ecchymosis and bruising. Left lower extremity within normal limits. Right lower extremity is externally rotated and mildly shorten ed. Range of motion is limited secondary to pain. She is neurovascularly intact distally at the sit e of her injury. NEUROLOGIC: GCS is 15. LABORATORY FINDINGS: WBC 7.3, hemoglobin 12.4, hematocrit 36.8, platelet count 194. Sodium 142, pot assium 4.3, chloride 104, carbon dioxide 32, BUN 25, creatinine 0.71, glucose 177. AST 91, ALT 150, total bilirubin 0.4. CK is 21. Troponin is less than 0.010. Urinalysis is pending. EKG: Normal s inus rhythm without evidence of ischemia. RADIOLOGIC FINDINGS: Chest x-ray with hyperinflated lungs and coarse interstitial markings. There w as no acute consolidation or pneumonia noted. X-ray of the right hip demonstrated a right intertroch anteric hip fracture. X-ray of the right knee demonstrated a joint effusion, but no bony abnormality or fracture. ASSESSMENT: 1. Status post ground-level fall. 2. Right intertrochanteric hip fracture. 3. Acute traumatic pain. 4. History of hypertension. 5. History of diabetes. 6. History of coronary artery disease. 7. Chronic obstructive pulmonary disease, on chronic home O2. 8. Recent admission for pneumonia on steroids and antibiotics. PLAN: 1. Admit to Trauma services. I have discussed the case with Orthopedic Surgery. Plan for operative intervention in the morning. The patient should be n.p.o. after midnight with sips of medication. Continue her antibiotic regimen and steroids from previous admission. Reconcile home medications. P erioperative pain management with p.o. and IV analgesics. Postoperative PT and OT. 2. DVT and gastritis prophylaxis as appropriate. Plan for admission were discussed with the patient and family at bedside. All questions were answere d at the time of this dictation. Per patient, she is a DO NOT RESUSCITATE and does not wish to have any chest compressions, defibrillation, or medications in the event of cardiac arrest. Trauma attend ing was notified of admission.
[2018-04-04 05:14] LABS: #Basophils 0.1 thou/uL (0.0-0.2); #Eosinphils 0.1 thou/uL (0.0-0.7); #Lymphocytes 1.6 thou/uL (1.20-3.40); #Monocytes 0.9 thou/uL (0.11-0.59); #Neutrophils 7.9 thou/uL (1.40-6.50); %Basophils 0.6 % (0.0-1.0); %Eosinophils 0.9 % (0.0-10.0); %Lymphocytes 15.1 % (21.0-51.0); %Monocytes 8.4 % (0.0-10.0); Hemoglobin 12.4 g/dL (12.0-16.0); Mean Corpuscular HGB CONC 32.4 g/dL (32.0-36.0); Mean Corpuscular Hemoglobin 31.5 pg (27.0-31.0); Mean Corpuscular Volume 97.4 fL (78.0-98.0); Mean Platelet Volume 6.2 fL (7.4-10.4); Platelet Count 180 thou/uL (130-400); RBC Distribution Width 12.4 % (11.5-14.5); Red Blood Cell (RBC) Count 3.92 mill/uL (4.20-5.40); White Blood Cell (WBC) Count 10.5 thou/uL (4.8-10.8)
[2018-04-04 05:28] LABS: Anion Gap 11 mmol/L (10-20); BUN (Urea Nitrogen) 17 mg/dL (9.8-20.1); Calc. Creatinine Clearance 57 mL/min (70-130); Calcium 8.9 mg/dL (7.8-10.44); Carbon Dioxide 26 mmol/L (23-31); Chloride 106 mmol/L (98-107); Estimated GFR-MDRD Greater than 90; Glucose 81 mg/dL (83-110); Magnesium 1.7 mg/dL (1.6-2.6); Phosphorus 2.5 mg/dL (2.3-4.7); Sodium 139 mmol/L (136-145)
[2018-04-04] MEDS: Mometasone/Formoterol 120 PUFF INHALER INH SCH ×2 (06:45→19:21)
--- NOTE | 2018-04-04 07:17 | CON ---
DATE OF CONSULTATION: 04/04/2018 REQUESTING PHYSICIAN: Dr. Yoshi Patterson. BRIEF HISTORY OF PRESENT ILLNESS: Ms. Marlow is a 77-year-old lady who presented to the emergency room on the evening of 04/03/2018 following a ground level fall injuring her right hip. She reports that she was ambulating in her room and tripped and fell. She denies loss of consciousness and state s that she did not strike her head. Of note, the patient was recently admitted to the hospital for p neumonia and patient is also status post left intertrochanteric femur fracture treated with an intram edullary hip screw device on 11/2017. She is now readmitted and orthopedic consultation requested fo r a new right intertrochanteric femur fracture. PAST MEDICAL HISTORY: Includes COPD, coronary artery disease, hypertension, diabetes, gastroesophage al reflux disease, history of cerebrovascular accident with left-sided weakness, and recent pneumonia . PAST SURGICAL HISTORY: Includes left intertrochanteric femur stabilization, coronary artery bypass, cholecystectomy, prior back surgery and hysterectomy. MEDICATIONS: Include Senokot, MiraLax, cefdinir, estradiol, digoxin, Norvasc, Restoril, Coreg, lisin opril, Lexapro, baby aspirin, metformin, simvastatin, Xanax, and prednisone on a tapered. ALLERGIES: LEVAQUIN and PENICILLIN. SOCIAL HISTORY: She resides at the [facility]. She denies alcohol, tobacco or recreati onal drug use. She ambulates with a walker or we will mobilize with a wheelchair. FAMILY HISTORY: Noncontributory for this injury. REVIEW OF SYSTEMS: Denies recent fevers, chills or sweats. Denies current chest pain, but does have a cough secondary to her recent pulmonary disease. PHYSICAL EXAMINATION: VITAL SIGNS: Temperature of 97.8, heart rate of 63, respiratory rate of 14, and blood pressure 166/7 0. HEENT: Atraumatic, normocephalic. Her mucous membranes are moist. HEART: Shows a regular rate and rhythm without murmur. LUNGS: Clear to auscultation bilaterally with reasonably good air movement. Chest wall is nontender . ABDOMEN: Soft, nontender and nondistended. PELVIS: Stable to compression and nontender. EXTREMITIES: Remarkable for bilateral upper extremities with scattered areas of ecchymoses, but no s kin tears. A left lower extremity with well healed lateral incision from her prior intertrochanteric stabilization. A right lower extremity is held slightly shortened and externally rotated at the hip consistent with her hip fracture. She is found to have an atraumatic knee, ankle and foot. She is moving her toes. Denies any change in her distal neurologic status. LABORATORY DATA: White count is 7, hematocrit of 36.8 and 194,000 platelets. X-RAY FINDINGS: Pertinent orthopedic x-rays include a right hip, which shows a minimally displaced f emoral neck fracture. ASSESSMENT: A 77-year-old lady status post ground level fall sustaining a right intertrochanteric fe mur fracture. PLAN: Today, we discussed that this is an essentially identical injury to which she had in November on the contralateral side. We have discussed risks and benefits of surgery which include but are not li mited to bleeding, infection, nerve injury, DVT, PE, malunion, nonunion, loss of limb or life. We elizabeth ve also discussed treatment options including briefly nonsurgical management versus proceeding with a DHS type device versus intramedullary hip screw. We have discussed that either the DHS or intramedu llary hip screw will certainly provide good stabilization and this decision will be made intraoperati vely depending on the adequacy of reduction and whether there is any comminution on the medial calcar . Patient appears comfortable with our discussion and plan.
[2018-04-04] MEDS ORDERED: Clindamycin/D5W 900 MG in Premix Bag 1 BAG IVPB SCH (07:45)
[2018-04-04] MEDS ORDERED: Non-Formulary Item 1 EACH (Fluticasone/Vilanterol [Breo Ellipta] 1 INH) IH SCH (09:00)
[2018-04-04] MEDS: Polyethylene Glycol 3350 17 GM Packet PO SCH (09:07)
[2018-04-04] MEDS: Senokot S 8.6-50 MG TAB PO SCH ×2 (09:07→20:33)
[2018-04-04] MEDS: Ascorbic Acid 500 mg Chewable Tablet PO SCH ×3 (09:08→20:40)
[2018-04-04] MEDS: predniSONE 20 MG TAB PO SCH (09:08)
[2018-04-04] MEDS: guaiFENesin ER 600 MG TAB PO SCH ×2 (09:08→20:34)
[2018-04-04] MEDS: ALPRAZolam 0.5 MG TAB PO SCH ×3 (09:08→20:32)
[2018-04-04] MEDS: Escitalopram Oxalate 10 mg Tablet PO SCH (09:08)
[2018-04-04] MEDS: Amlodipine 5 MG TAB PO SCH (09:08)
[2018-04-04] MEDS: Carvedilol 6.25 MG TAB PO SCH ×2 (09:34→20:33)
[2018-04-04] MEDS: Cefdinir 300 MG CAP PO SCH ×2 (10:59→20:33)
[2018-04-04] MEDS: Famotidine/PF 20 mg/2ml Vial SLOW IVP SCH ×2 (10:59→20:34)
[2018-04-04] MEDS ORDERED: Magnesium Sulfate 3 GM in Sodium Chloride 0.9% 100 ML IVPB SCH (11:00)
--- NOTE | 2018-04-04 11:18 | PRG ---
DATE OF SERVICE: 04/04/2018 SUBJECTIVE: This is a 77-year-old female, who is hospital day #2, status post ground-level fall with resulting right intertrochanteric hip fracture. There were no acute overnight events. Upon our claudette luation this morning, the patient states that her pain has been well controlled. Her breathing appea rs to be at baseline. She is n.p.o. in anticipation of operative intervention to her hip. OBJECTIVE: VITAL SIGNS: Temperature 97.8, pulse 64, respirations 20, O2 sat 91% on 2 liters nasal cannula, bloo d pressure 156/80. GENERAL: Elderly, frail-appearing female in no acute distress, resting in bed. PULMONARY: Normal work of breathing. Symmetric rise on 2 liters nasal cannula. CARDIOVASCULAR: Regular rate and rhythm. GASTROINTESTINAL: Soft, nontender, nondistended. MUSCULOSKELETAL: Moves all extremities x4. NEUROLOGIC: GCS is 15. LABORATORY FINDINGS: WBC 10.5, hemoglobin 12.4, hematocrit 38.2, platelet count 180. Sodium 139, po tassium 4.0, chloride 106, carbon dioxide 26, BUN 17, creatinine 0.55, glucose 81. Phosphorous 2.5, magnesium 1.7. ASSESSMENT: 1. Status post ground-level fall. 2. Right intertrochanteric hip fracture. 3. Acute traumatic pain. 4. History of hypertension. 5. History of diabetes. 6. History of coronary artery disease. 7. Chronic obstructive pulmonary disease, on chronic home O2. 8. Recent admission for pneumonia, on steroids and antibiotics. PLAN: Continue pain management as ordered. Continue antibiotics and steroids. Orthopedic Surgery p lans for operative intervention to her hip later today. We will follow up postoperatively. Perioper ative pain management as ordered. Postoperative PT and OT. The patient is a resident at [facility]. We will discuss with case management. Plan of care was discussed with the patient at bedside and all questions were answered at the time of this dictation. The patient was seen and eval uated with Dr. Betancourt.
[2018-04-04] MEDS ORDERED: Clindamycin/D5W 900 mg/50 ml Premix Bag ONE (13:31)
[2018-04-04] MEDS ORDERED: Albuterol Sulfate HFA (OR ONLY) ONE (14:03)
[2018-04-04] MEDS ORDERED: Bupivacaine 0.75% W/DEXTROSE 8.25% 2 ML AMP ONE (14:04)
[2018-04-04] MEDS ORDERED: Ketamine 50 MG/ML VIAL ONE (14:05)
--- NOTE | 2018-04-04 14:36 | PQF ---
CLINICAL DOCUMENTATION IMPROVEMENT CLARIFICATION FORM: ICD-10 Updated PLEASE DO AN ADDENDUM TO THE PROGRESS NOTE WITH ANY DOCUMENTATION UPDATES OR ADDITIONS AND CARRY THROUGH TO DC SUMMARY. THANK YOU. Date: 04/04, 04/06 ATTN: DR. KARAN JASSO Please exercise your independent, professional judgment in responding to the clarification form. Clinical indicators are provided on the bottom of this form for your review. Please check appropriate box(s): [ ] Protein Calorie Malnutrition: [ ] Mild [ x ] Moderate [ ] Severe [ ] Cachexia [ ] Other diagnosis [ ] Unable to determine CLINICAL INDICATORS - SIGNS / SYMPTOMS / LABS BMI: 15.5 NUTRITION ASSESSMENT 04/04: THE PATIENT IS VISIBLY MALNOURISHED. OBSERVED SEVERE MUSCLE WASTING TO CLAVICLES, SHOULDER AND TEMPLES & FAT WASTING TO TRICEPS, RIBS/CHEST, DORSAL INTEROSSEI & ORBITAL AREA. IDEAL BODY WT: 130 LBS , 74% OF IDEAL BODY WEIGHT RISK FACTORS: 02 DEPENDENT COPD RECENT PNEUMONIA W/DECREASE IN APPETITE TREATMENT: NUTRITION ASSESSMENT Moderate Malnutrition (in acute illness) Energy Intake: <75% of estimated energy requirement for > 7 days Weight Loss: 1-2%/1 week; 5%/ 1 month; 7.5%/3 months Other: mild body fat loss; mild muscle mass loss; mild fluid accumulation; Severe Malnutrition (in acute illness) Energy Intake: < 50% of estimated energy requirement for > 5 days Weight Loss: >1-2%/1 week; >5%/1 month; >7.5%/3 months Other: moderate body fat loss; moderate muscle mass loss; moderate- severe fluid accumulation; measurably reduced block hacker strength Moderate Malnutrition (in chronic illness) Energy Intake: <75% of estimated energy requirement for >1 month Weight Loss: 5%/1 month; 7.5%/3 months; 10%/6 months; 20%/1 year Other: mild body fat loss; mild muscle mass loss; mild fluid accumulation Severe Malnutrition (in chronic illness) Energy Intake: <75% of estimated energy requirement for >1 month Weight Loss: >5%/1 month; >7.5%/3 months; >10%/6 months; >20%/1 year Other: severe body fat loss; severe muscle mass loss; severe fluid accumulation; measurably reduced block hacker strength THANK YOU! Sharon (This form is maintained as a part of the permanent medical record) 2014 [employer] All Rights Reserved Sharon Calixto RN, BSN [email or web address] Office: [phone] CATIE
--- NOTE | 2018-04-04 14:46 | PQF ---
CLINICAL DOCUMENTATION IMPROVEMENT CLARIFICATION FORM: ICD-10 Updated PLEASE DO AN ADDENDUM TO THE PROGRESS NOTE WITH ANY DOCUMENTATION UPDATES OR ADDITIONS AND CARRY THROUGH TO DC SUMMARY. THANK YOU. DATE: 04/04, 04/06 ATTN: DR. KARAN JASSO Please exercise your independent, professional judgment in responding to the clarification form. Clinical indicators are provided on the bottom of this form for your review. Please check appropriate box(s): [ ] Chronic Respiratory Failure only [ ] with Hypoxia [ ] with Hypercapnia [ x] Hypoxia [ ] Other diagnosis [ ] Unable to determine For continuity of documentation, please document condition throughout progress notes and discharge summary. Thank You. 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 Sharon (This form is maintained as a part of the permanent medical record) 2014 [employer] All Rights Reserved Sharon Calixto RN, BSN [email or web address] Office: [phone] [facility] HEALTHNoreen
[2018-04-04] MEDS ORDERED: Promethazine HCl 25 MG/ML VIAL IM PRN (15:35)
[2018-04-04] MEDS ORDERED: Ondansetron HCl/PF 4 MG/2 ML Vial IVP PRN (15:35)
[2018-04-04] MEDS ORDERED: Promethazine HCl 25 MG/ML VIAL SLOW IVP PRN (15:35)
[2018-04-04] MEDS ORDERED: Sodium Chloride For Inhalation 0.9% 3 ML NEB ONE (16:01)
--- NOTE | 2018-04-04 17:01 | RAD ---
2 VIEWS RIGHT HIP: Date: 04/04/18 COMPARISON: 04/03/18. HISTORY: Right hip fracture status post open reduction and internal fixation. FINDINGS/IMPRESSION: Limited intraoperative fluoroscopic views of the right hip were submitted for interpretation. The pat ient is status post intramedullary fam fixation of the proximal right femur fracture. No perihardware lucency is seen. POS: [facility]
[2018-04-04] MEDS: Digoxin 0.125 MG TAB PO SCH (17:38)
[2018-04-04] MEDS: Acetaminophen 500 MG TAB PO SCH (17:43)
[2018-04-04] MEDS: Temazepam 15 MG CAP PO SCH (20:33)
[2018-04-04] MEDS: Simvastatin 20 MG TAB PO SCH (20:33)
[2018-04-04] MEDS: Clindamycin/D5W 900 MG in Premix Bag 1 BAG IVPB SCH (21:29)
--- NOTE | 2018-04-04 22:46 | OP ---
DATE OPERATION: 04/04/2018 OPERATION: Right proximal femur intramedullary nail. PREOPERATIVE DIAGNOSIS: Right intertrochanteric femur fracture. POSTOPERATIVE DIAGNOSIS: Right intertrochanteric femur fracture. COMPLICATIONS: None. ESTIMATED BLOOD LOSS: 100 mL. SURGEON: Easton Robertson M.D. VESSEL SLAG WORKER: Crescencio Arias PA-C. IMPLANTS: Synthes short trochanteric nail size 10 mm. COMPLICATIONS: None. INDICATIONS FOR PROCEDURE: Ms. Marlow is a 77-year-old female who fell. She fractured her right i ntertrochanteric femur. She was indicated for intramedullary nail fixation to restore anatomic align ment and promote healing. Risks have been reviewed in detail. She has elected to proceed with the o peration. DESCRIPTION OF PROCEDURE: Ms. Marlow was identified in the preoperative holding area. Her correct extremity was marked. She was carried to the operating room. She was positioned supine. General a nesthesia was induced. A multidisciplinary timeout was performed. The right lower extremity was pre pped and draped in sterile fashion. We began the procedure with a small incision proximal to the greater trochanter. We dissected down t o the subcutaneous tissues to the trochanter. A guidewire was inserted. We then overdrilled the manish dewire. At this point, we placed our short trochanteric nail. We guided this with intraoperative x- ray. We then evaluated on orthogonal planes. At this point, we placed a guidewire in the center pos ition of the femoral head. We then overdrilled this. Next, we impacted the helical blade. We place d this in a dynamic position. Finally, we placed a distal Crosslock screw completing fixation. We t ook final images. We thoroughly irrigated with copious lavage. We then closed with 0 Vicryl suture, 2-0 Vicryl suture and andrei for the skin. A sterile dressing was applied.
[2018-04-05] MEDS: Acetaminophen 500 MG TAB PO SCH ×2 (00:13→05:07)
[2018-04-05] MEDS: Ketorolac Tromethamine 30 MG/ML VIAL IVP SCH ×2 (00:13→05:07)
[2018-04-05] MEDS: traMADol HCl 50 MG TAB PO SCH ×2 (00:15→05:15)
[2018-04-05] MEDS: Sodium Chloride 0.9% 1,000 ML IV SCH (00:41)
[2018-04-05] MEDS: Clindamycin/D5W 900 MG in Premix Bag 1 BAG IVPB SCH ×3 (05:07→21:32)
[2018-04-05 06:44] LABS: #Eosinphils 0.2 thou/uL (0.0-0.7); #Lymphocytes 1.1 thou/uL (1.20-3.40); #Monocytes 0.6 thou/uL (0.11-0.59); #Neutrophils 7.9 thou/uL (1.40-6.50); %Eosinophils 1.9 % (0.0-10.0); %Lymphocytes 11.6 % (21.0-51.0); %Neutrophils 80.6 % (42.0-75.0); Hemoglobin 9.8 g/dL (12.0-16.0); Mean Corpuscular HGB CONC 33.4 g/dL (32.0-36.0); Mean Corpuscular Hemoglobin 33.2 pg (27.0-31.0); Mean Corpuscular Volume 99.4 fL (78.0-98.0); Mean Platelet Volume 6.6 fL (7.4-10.4); Platelet Count 147 thou/uL (130-400); RBC Distribution Width 12.5 % (11.5-14.5); Red Blood Cell (RBC) Count 2.94 mill/uL (4.20-5.40); White Blood Cell (WBC) Count 9.8 thou/uL (4.8-10.8)
[2018-04-05 06:58] LABS: Anion Gap 9 mmol/L (10-20); BUN (Urea Nitrogen) 19 mg/dL (9.8-20.1); Calc. Creatinine Clearance 52 mL/min (70-130); Calcium 8.1 mg/dL (7.8-10.44); Carbon Dioxide 29 mmol/L (23-31); Chloride 102 mmol/L (98-107); Estimated GFR-MDRD Greater than 90; Glucose 99 mg/dL (83-110); Magnesium 2.3 mg/dL (1.6-2.6); Phosphorus 4.5 mg/dL (2.3-4.7); Potassium 3.9 mmol/L (3.5-5.1); Sodium 136 mmol/L (136-145)
[2018-04-05] MEDS: Mometasone/Formoterol 120 PUFF INHALER INH SCH ×2 (07:53→18:36)
[2018-04-05] MEDS: Amlodipine 5 MG TAB PO SCH (08:16)
[2018-04-05] MEDS: predniSONE 20 MG TAB PO SCH (08:16)
[2018-04-05] MEDS: Senokot S 8.6-50 MG TAB PO SCH ×2 (08:16→21:32)
[2018-04-05] MEDS: Enoxaparin Sodium 40 MG/0.4 ML SYRINGE SC SCH (08:17)
[2018-04-05] MEDS: ALPRAZolam 0.5 MG TAB PO SCH ×3 (08:17→21:31)
[2018-04-05] MEDS: Cefdinir 300 MG CAP PO SCH ×2 (08:17→21:32)
[2018-04-05] MEDS: Famotidine 20 MG TAB PO SCH ×2 (08:17→21:32)
[2018-04-05] MEDS: Escitalopram Oxalate 10 mg Tablet PO SCH (08:17)
[2018-04-05] MEDS: Polyethylene Glycol 3350 17 GM Packet PO SCH (08:17)
[2018-04-05] MEDS: guaiFENesin ER 600 MG TAB PO SCH ×2 (08:17→21:32)
[2018-04-05] MEDS: Ascorbic Acid 500 mg Chewable Tablet PO SCH ×2 (08:19→21:33)
[2018-04-05] MEDS ORDERED: Prevnar 13-Val Conj/PF 0.5 ML SYRINGE IM ONE (09:00)
[2018-04-05] MEDS ORDERED: Acetaminophen/Codeine 30-300mg Tablet PO SCH (10:30)
[2018-04-05] MEDS: Carvedilol 6.25 MG TAB PO SCH ×2 (11:58→21:31)
[2018-04-05] MEDS: Acetaminophen/Codeine 30-300mg Tablet PO SCH ×2 (15:47→21:30)
[2018-04-05] MEDS ORDERED: Sodium Chloride 0.9% 250 ML IV SCH ×2 (16:30→19:00)
[2018-04-05 18:34] LABS: Anion Gap 10 mmol/L (10-20); BUN (Urea Nitrogen) 24 mg/dL (9.8-20.1); Calc. Creatinine Clearance 45 mL/min (70-130); Calcium 7.9 mg/dL (7.8-10.44); Carbon Dioxide 24 mmol/L (23-31); Chloride 104 mmol/L (98-107); Estimated GFR-MDRD 82; Glucose 256 mg/dL (83-110); Magnesium 2.4 mg/dL (1.6-2.6); Phosphorus 3.7 mg/dL (2.3-4.7); Potassium 4.3 mmol/L (3.5-5.1); Sodium 134 mmol/L (136-145)
[2018-04-05] MEDS: HumaLOG 300 UNITS/3 ML VIAL SC PRN ×2 (18:46→21:36)
[2018-04-05] MEDS: Temazepam 15 MG CAP PO SCH (21:30)
[2018-04-05] MEDS: Simvastatin 20 MG TAB PO SCH (21:31)
--- NOTE | 2018-04-06 00:14 | PRG ---
DATE OF SERVICE: 04/05/2018 ATTENDING PHYSICIAN: Braulio Betancourt DO SUBJECTIVE: Ms. Marlow is a 77-year-old female who is hospital day #3 status post ground level fal l with right intertrochanteric hip fracture. She is postoperative day #1 status post right proximal femur intramedullary nail. She is mobilizing with physical and occupational therapy today. OBJECTIVE: VITAL SIGNS: Temperature 97.6, pulse 75, respirations 18, O2 sat 94% on 3 liters nasal cannula, bloo d pressure 146/70. GENERAL: Elderly female in no acute distress, resting in bed. PULMONARY: Bilateral breath sounds clear. No respiratory distress. 500-1000 on incentive spi rometer. CARDIOVASCULAR: Regular rate and rhythm. GASTROINTESTINAL: Soft, nontender, nondistended. MUSCULOSKELETAL: Moves all extremities x4. Cap refill brisk. 2+ pulses in all extremities. NEUROLOGIC: GCS is 15. Awake, alert, oriented x3. LABORATORY DATA: CBC: WBC 9.8, RBC 2.94, hemoglobin 9.8 down from 12.4 yesterday, hematocrit 29.2 d own from 38.2 yesterday, platelets 147. Chemistry: Sodium 134, potassium 4.3, chloride 104, carbon dioxide 24, BUN 24, creatinine 0.69, glucose 256, calcium 7.9, phosphorus 3.7, magnesium 2.4. ASSESSMENT: 1. Status post ground-level fall. 2. Right intertrochanteric hip fracture, postoperative day #1 status post open reduction and interna l fixation. 3. Acute traumatic pain, well controlled. 4. History of hypertension. 5. History of diabetes. 6. History of coronary artery disease. 7. Chronic obstructive pulmonary disease, on home O2. 8. Recent admission for pneumonia, currently on steroids and antibiotics. PLAN: 1. Continue mobilizing with physical and occupational therapy. 2. Discontinue Omnicef. 3. Discontinue IV fluids. 4. Discontinue Blanca. 5. Case management following for discharge planning. The patient is a resident of [facility]. The patient was seen and examined with Dr. Betancourt on morning rounds. Dr. Betancourt agrees with plan.
[2018-04-06] MEDS: Clindamycin/D5W 900 MG in Premix Bag 1 BAG IVPB SCH ×2 (05:08→14:13)
[2018-04-06] MEDS: Mometasone/Formoterol 120 PUFF INHALER INH SCH (06:41)
[2018-04-06 08:02] LABS: #Basophils 0.1 thou/uL (0.0-0.2); #Eosinphils 0.1 thou/uL (0.0-0.7); #Lymphocytes 1.5 thou/uL (1.20-3.40); #Monocytes 0.5 thou/uL (0.11-0.59); #Neutrophils 9.4 thou/uL (1.40-6.50); %Basophils 0.6 % (0.0-1.0); %Monocytes 4.6 % (0.0-10.0); %Neutrophils 80.9 % (42.0-75.0); Hemoglobin 8.7 g/dL (12.0-16.0); Mean Corpuscular HGB CONC 33.9 g/dL (32.0-36.0); Mean Corpuscular Hemoglobin 33.4 pg (27.0-31.0); Mean Corpuscular Volume 98.7 fL (78.0-98.0); Mean Platelet Volume 6.7 fL (7.4-10.4); Platelet Count 170 thou/uL (130-400); RBC Distribution Width 12.7 % (11.5-14.5); Red Blood Cell (RBC) Count 2.61 mill/uL (4.20-5.40); White Blood Cell (WBC) Count 11.6 thou/uL (4.8-10.8)
[2018-04-06 08:37] LABS: Anion Gap 7 mmol/L (10-20); BUN (Urea Nitrogen) 24 mg/dL (9.8-20.1); Calc. Creatinine Clearance 52 mL/min (70-130); Calcium 8.1 mg/dL (7.8-10.44); Carbon Dioxide 29 mmol/L (23-31); Chloride 106 mmol/L (98-107); Estimated GFR-MDRD Greater than 90; Glucose 166 mg/dL (83-110); Magnesium 1.9 mg/dL (1.6-2.6); Phosphorus 2.5 mg/dL (2.3-4.7); Potassium 3.6 mmol/L (3.5-5.1); Sodium 138 mmol/L (136-145)
[2018-04-06] MEDS: Famotidine 20 MG TAB PO SCH (08:50)
[2018-04-06] MEDS: Enoxaparin Sodium 40 MG/0.4 ML SYRINGE SC SCH (08:50)
[2018-04-06] MEDS: Senokot S 8.6-50 MG TAB PO SCH (08:50)
[2018-04-06] MEDS: Carvedilol 6.25 MG TAB PO SCH (08:51)
[2018-04-06] MEDS: Escitalopram Oxalate 10 mg Tablet PO SCH (08:51)
[2018-04-06] MEDS: Acetaminophen/Codeine 30-300mg Tablet PO SCH ×2 (08:51→15:03)
[2018-04-06] MEDS: ALPRAZolam 0.5 MG TAB PO SCH ×2 (08:51→15:03)
[2018-04-06] MEDS: predniSONE 20 MG TAB PO SCH (08:51)
[2018-04-06] MEDS: Amlodipine 5 MG TAB PO SCH (08:52)
[2018-04-06] MEDS: Ascorbic Acid 500 mg Chewable Tablet PO SCH (08:52)
[2018-04-06] MEDS: Cefdinir 300 MG CAP PO SCH (08:52)
[2018-04-06] MEDS: Digoxin 0.125 MG TAB PO SCH (08:52)
[2018-04-06] MEDS: Polyethylene Glycol 3350 17 GM Packet PO SCH (08:52)
[2018-04-06] MEDS: guaiFENesin ER 600 MG TAB PO SCH (08:52)
--- NOTE | 2018-04-06 09:59 | RAD ---
FRONTAL VIEW CHEST: Comparison: 04-03-18 Indication: Hypoxia. FINDINGS: There is redemonstration of hyperinflation as well as diffuse interstitial prominence of the lungs. T he interstitial prominence has increased. Post-surgical change of the chest is again seen. No additio nal significant interval change. IMPRESSION: 1. Diffuse interstitial opacifications of hyperinflated lungs indicating COPD and interstitial lung d isease. The possibility of superimposed pneumonitis and/or edema not excluded. 2. Redemonstration of surgical change of the mediastinum with an enlarged cardiac silhouette. 3. Recommend continued imaging follow up. POS: [facility]
--- NOTE | 2018-04-06 13:15 | PRG ---
DATE OF SERVICE: 04/06/2018 ATTENDING PHYSICIAN: Dr. Braulio Betancourt. PRESENT ILLNESS: Ms. Marlow is a 77-year-old female, who is hospital day #4 status post ground-lev el fall with right intertrochanteric hip fracture. She is postoperative day #2 status post right pro ximal femur intramedullary nail. She is mobilizing with physical and occupational therapy today. Sh e had decreased urine output, necessitating crystalloid bolus yesterday. Vital signs have remained s table. OBJECTIVE: VITAL SIGNS: Temperature 98.0, pulse 77, respirations 16, O2 sat 92% on 4 liters nasal cannula, bloo d pressure 157/72 . GENERAL: Elderly female, lying in bed, in no acute distress. PULMONARY: Bilateral breath sounds clear. No respiratory distress. Approximately 500 mL on incenti ve spirometer. CARDIOVASCULAR: Regular rate and rhythm. GASTROINTESTINAL: Soft, nontender, nondistended. MUSCULOSKELETAL: Moves all extremities x4. Cap refill brisk. A 2+ pulses all extremities. NEUROLOGIC: GCS 15. Awake, alert, oriented x3. LABORATORY DATA: CBC: WBC 11.6, RBC 2.61, hemoglobin 8.7, hematocrit 25.8, platelets 170. Chemistr y: Sodium 138, potassium 3.6, chloride 106, carbon dioxide 29, BUN 7, creatinine 0.60, glucose 166, calcium 8.1, phosphorus 2.5, magnesium 1.9. ASSESSMENT: 1. Status post ground-level fall. 2. 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 3. Acute traumatic pain, well controlled. 4. History of hypertension. 5. History of diabetes. 6. History of coronary artery disease. 7. History of chronic obstructive pulmonary disease, on home O2. 8. Recent admission for pneumonia, antibiotics deescalated yesterday. PLAN: 1. Continue mobilizing with physical and occupational therapy. 2. Continue steroids as ordered. 3. Scheduled DuoNeb. 4. Encourage pulmonary toilet and incentive spirometer. 5. Discontinue Blanca. 6. Case management following for discharge planning and shelter facility placement. The patient was seen and examined with Dr. Betancourt, who agrees with plan.
[2018-04-06 16:00] VITALS: BP 111/65; TEMP 97.4
[2018-04-07] MEDS ORDERED: predniSONE 20 MG TAB PO SCH ×2 (08:00→09:00)
[2018-04-07] MEDS ORDERED: methylPREDNISolone 4 mg Tablet PO SCH (08:00)
[2018-04-08] MEDS ORDERED: methylPREDNISolone 4 mg Tablet PO SCH ×2 (08:00→21:00)
[2018-04-09] MEDS ORDERED: methylPREDNISolone 4 mg Tablet PO SCH (08:00)
[2018-04-10] MEDS ORDERED: methylPREDNISolone 4 mg Tablet PO SCH (08:00)
[2018-04-11] MEDS ORDERED: methylPREDNISolone 4 mg Tablet PO SCH (08:00)
[2018-04-12] MEDS ORDERED: methylPREDNISolone 4 mg Tablet PO SCH (08:00)
== END 2018-04-06 16:00 | DRG 481 ==
LOC: ERS 20:28 → SURG A 22:20
PROVIDERS: ADMIT Surgery; ATTEND Surgery
PROC: 0QS636Z Reposition Right Upper Femur with Intramedullary Internal Fixation Device, Percutaneous Approach (ICD-10-PCS; principal; 2018-04-04)
DX: S72.141A Displaced intertrochanteric fracture of right femur, initial encounter for closed fracture (principal); E44.0 Moderate protein-calorie malnutrition; Z68.1 Body mass index [BMI] 19.9 or less, adult; I69.354 Hemiplegia and hemiparesis following cerebral infarction affecting left non-dominant side; I10 Essential (primary) hypertension; W01.0XXA Fall on same level from slipping, tripping and stumbling without subsequent striking against object, initial encounter; R09.02 Hypoxemia; E11.9 Type 2 diabetes mellitus without complications; G89.11 Acute pain due to trauma; M81.0 Age-related osteoporosis without current pathological fracture; J44.9 Chronic obstructive pulmonary disease, unspecified; K21.9 Gastro-esophageal reflux disease without esophagitis; I25.10 Atherosclerotic heart disease of native coronary artery without angina pectoris; F41.9 Anxiety disorder, unspecified; F32.9 Major depressive disorder, single episode, unspecified; Y93.9 Activity, unspecified; Y92.9 Unspecified place or not applicable; Z87.81 Personal history of (healed) traumatic fracture; Z87.19 Personal history of other diseases of the digestive system; Z87.891 Personal history of nicotine dependence; Z88.0 Allergy status to penicillin; Z88.1 Allergy status to other antibiotic agents; Z79.82 Long term (current) use of aspirin; Z79.890 Hormone replacement therapy; Z79.899 Other long term (current) drug therapy; Z79.52 Long term (current) use of systemic steroids; Z99.81 Dependence on supplemental oxygen; Z95.1 Presence of aortocoronary bypass graft; Z87.01 Personal history of pneumonia (recurrent); Z90.710 Acquired absence of both cervix and uterus; Z79.84 Long term (current) use of oral hypoglycemic drugs; Z90.49 Acquired absence of other specified parts of digestive tract
CPT/HCPCS: 36415; 36416; 71045; 76001; 80048; 80053; 81003; 82553; 83735; 83880; 84100; 84484; 85025; 87086; 93005; 94760; 96374; 96375; C1713; G8978-GP-CL; G8979-GP-CJ; G8987-GO-CL; G8988-GO-CJ; J0131; J0360; J1650; J1885; J2270; J2405; J3475; J3490; J7050; J7506; J7620; S0028

== ENCOUNTER 2018-10-25 09:05 | Inpatient (IN) | payer MEDICARE ==
[2018-10-25 09:50] LABS: #Eosinphils 0.1 thou/uL (0.0-0.7); #Lymphocytes 1.1 thou/uL (1.20-3.40); #Monocytes 0.3 thou/uL (0.11-0.59); #Neutrophils 4.7 thou/uL (1.40-6.50); %Basophils 0.1 % (0.0-1.0); %Eosinophils 1.2 % (0.0-10.0); %Lymphocytes 17.4 % (21.0-51.0); %Monocytes 5.5 % (0.0-10.0); %Neutrophils 75.7 % (42.0-75.0); Hemoglobin 11.4 g/dL (12.0-16.0); Mean Corpuscular HGB CONC 31.5 g/dL (32.0-36.0); Mean Corpuscular Hemoglobin 31.9 pg (27.0-31.0); Platelet Count 192 thou/uL (130-400); RBC Distribution Width 13.4 % (11.5-14.5); Red Blood Cell (RBC) Count 3.59 mill/uL (4.20-5.40); White Blood Cell (WBC) Count 6.3 thou/uL (4.8-10.8)
--- NOTE | 2018-10-25 10:06 | RAD ---
SINGLE VIEW OF THE CHEST: Comparison: 04-06-18 History: Shortness of breath, congestion. FINDINGS: Single view of the chest shows a normal sized cardiomediastinal silhouette. The patient is status pos t CABG. There is opacity in the left inferior thorax which may represent a pleural effusion and adjac ent atelectasis versus infiltrate. IMPRESSION: Left pleural effusion with adjacent atelectasis versus infiltrate. POS: [facility]
[2018-10-25 10:14] LABS: ALT (SGPT) 13 U/L (8-55); AST (SGOT) 16 U/L (5-34); Albumin 2.8 g/dL (3.4-4.8); Alkaline Phosphatase 84 U/L (40-150); Anion Gap 13 mmol/L (10-20); BUN (Urea Nitrogen) 12 mg/dL (9.8-20.1); Bilirubin, Total 0.5 mg/dL (0.2-1.2); Calc. Creatinine Clearance 0 mL/min (70-130); Calcium 8.5 mg/dL (7.8-10.44); Carbon Dioxide 24 mmol/L (23-31); Chloride 107 mmol/L (98-107); Estimated GFR-MDRD 86; Globulin 3.6 g/dL (2.4-3.5); Glucose 85 mg/dL (83-110); Protein, Total 6.4 g/dL (6.0-8.3); Sodium 140 mmol/L (136-145)
[2018-10-25] MEDS ORDERED: Acetaminophen 325 MG TAB PO PRN (11:00)
[2018-10-25] MEDS ORDERED: Sodium Chloride 0.9% 1,000 ML IV SCH (11:00)
[2018-10-25] MEDS ORDERED: Ondansetron PF 4 MG/2 ML Vial IVP PRN (11:00)
[2018-10-25] MEDS ORDERED: Ondansetron ODT 4 MG TAB SL PRN (11:00)
[2018-10-25] MEDS ORDERED: Vancomycin HCl 750 MG in Sodium Chloride 0.9% 250 ML 250 ML IVPB SCH (11:00)
[2018-10-25 11:03] LABS: Bilirubin Negative (Negative); Blood, Urine Negative (Negative); Clarity CLOUDY (Clear); Glucose, Urine (Dipstick) Negative (Negative); Leukocyte Negative (Negative); Nitrite Negative (Negative); Protein, Urine (Dipstick) Negative (Neg-Trace); Specific Gravity, Urine 1.014 (1.002-1.036); Urobilinogen 0.2 mg/dL (0.2-1.0)
[2018-10-25] MEDS ORDERED: Cefepime 2 GM in Sodium Chloride 0.9% 100 ML IVPB SCH (11:15)
[2018-10-25] MEDS ORDERED: Vancomycin HCl 500 MG in Sodium Chloride 0.9% 100 ML IVPB SCH (12:15)
[2018-10-25 17:06] VITALS: BMI 15.3
[2018-10-25] MEDS ORDERED: Dextrose 5% in Water 1,000 ML IV PRN (19:21)
[2018-10-25] MEDS ORDERED: Dextrose 50% Abboject 50 ML SYRINGE IVP PRN (19:21)
[2018-10-25] MEDS ORDERED: Insulin Regular 300 UNITS/3 ML VIAL SC PRN (19:22)
[2018-10-25] MEDS ORDERED: Guaifenesin DM 100-10/5 ML UDCUP PO PRN (19:45)
[2018-10-25] MEDS: Sodium Chloride 0.45% 1,000 ML IV SCH (19:47)
[2018-10-25] MEDS: guaiFENesin ER 600 MG TAB PO SCH (19:47)
[2018-10-25] MEDS ORDERED: CEFAZOLIN 1 GM in Sodium Chloride 0.9% 100 ML IVPB SCH (20:00)
[2018-10-25] MEDS ORDERED: Cefepime 1 GM SYRINGE 1 GM in Sodium Chloride 0.9% 100 ML IVPB SCH (20:00)
[2018-10-25] MEDS: Aspirin 81 mg Enteric Coated Tablet PO SCH (20:18)
[2018-10-25] MEDS: Ascorbic Acid 500 mg Chewable Tablet PO SCH (20:18)
[2018-10-25] MEDS: Simvastatin 20 MG TAB PO SCH (20:18)
[2018-10-25] MEDS: Mirtazapine 15 MG TAB PO SCH (20:18)
[2018-10-25] MEDS: Estradiol 1 MG TAB PO SCH (20:19)
[2018-10-25] MEDS: Carvedilol 6.25 MG TAB PO SCH (20:19)
[2018-10-25] MEDS: Temazepam 15 MG CAP PO SCH (20:19)
[2018-10-25] MEDS: Acetaminophen/Codeine 30-300mg Tablet PO SCH (20:19)
[2018-10-25] MEDS: Cefepime 1 GM in Sodium Chloride 0.9% 100 ML IVPB SCH (20:20)
[2018-10-25] MEDS: Lisinopril 20 MG TAB PO SCH (20:20)
[2018-10-25] MEDS: ALPRAZolam 0.5 MG TAB PO SCH (20:22)
[2018-10-25] MEDS ORDERED: CALCIUM CITRATE 200 MG PO SCH (21:00)
[2018-10-25] MEDS ORDERED: BEER 1 CAN PO SCH (21:00)
[2018-10-26] MEDS: methylPREDNISolone Sod Succ 40 MG VIAL IVP SCH ×4 (00:13→16:39)
--- NOTE | 2018-10-26 00:46 | HP ---
CHIEF COMPLAINT: Cough, fever, and shortness of breath. HISTORY OF PRESENT ILLNESS: Ms. Marlow is an 78-year-old female with past medical history of end-stage COPD, hypertension, coronary artery disease, diabetes, has been having cough, fever for the last few weeks. The patient had a chest x-ray done, which revealed pneumonia. The patient was treated antibiotics at the shelter including Rocephin, but the patient developed fever again and cough, and has been having shortness of breath with wheezing, so anyhow the patient is being referred to the hospital for worsening of the symptoms. EMS found the patient with hypotension, started on IV fluids, given DuoNeb. In the ER, the patient was found to have possible pneumonia, possible sepsis. The patient received dose of cefepime and vancomycin. The patient is being admitted for further evaluation and management. The patient also received IV fluid bolus of 500 mL of normal saline in the ER. PAST MEDICAL HISTORY: 1. End-stage COPD. 2. Coronary artery disease status post CABG. 3. Hypertension. 4. Diabetes. 5. Anxiety disorder. 6. Chronic back pain. 7. Protein-calorie malnutrition. 8. Gastroesophageal reflux disease. 9. History of CVA. 10. History of hip fractures 11. History of osteoporosis. PAST SURGICAL HISTORY: Status post CABG, status post ORIF, left hip fracture and right hip fracture. CURRENT MEDICATIONS: The patient is on 1. Tylenol No. 3 q.i.d. 2. Xanax 0.5 t.i.d. 3. Amlodipine 5 mg daily. 4. Vitamin C b.i.d. 5. Aspirin 81 mg daily. 6. Coreg 6.25 b.i.d. 7. Digoxin 0.125 daily. 8. Lexapro 20 mg daily. 9. Estradiol 0.5 daily. 10. Pepcid 20 b.i.d. 11. Breo Ellipta one inhalation daily. 12. DuoNeb q.i.d. 13. Lisinopril 20 b.i.d. 14. Metformin 500 in the day and 250 in the evening. 15. MiraLAX 17 g daily. 16. Simvastatin 20 mg daily. 17. Restoril 30 mg at bedtime. 18. Remeron 7.5 mg daily. ALLERGIES: PENICILLIN AND LEVOFLOXACIN. FAMILY HISTORY: Nothing contributory. SOCIAL HISTORY: Lives at the shelter. No history of alcohol intake. No history of smoking, quit a few months ago. REVIEW OF SYSTEMS: CARDIOVASCULAR: No chest pain, has shortness of breath. RESPIRATORY: There is cough, fever. GASTROINTESTINAL: Some nausea. No vomiting. No abdominal pain. CENTRAL NERVOUS SYSTEMS: No headache, no dizziness. PHYSICAL EXAMINATION: GENERAL: The patient is alert, awake, and oriented x3. VITAL SIGNS: Temperature 101 at the shelter, pulse 90, respirations 24, blood pressure 120/116. HEENT: Head is normocephalic, atraumatic. Pupils are equal and reactive. Nasopharynx is pale and dry. Hard and soft palate, no lesions. SKIN: Turgor decreased. NECK: Supple. No JVD. LUNGS: Breath sounds diminished bilaterally. Percussion dull bilaterally. Rhonchi present bilaterally. Crackles are in left base. HEART: S1 and S2, regular. ABDOMEN: Soft. No distention. No tenderness. Normal sounds present. RECTAL: Deferred. CENTRAL NERVOUS SYSTEM: No focal deficits. LABORATORY DATA: Metabolic panel; sodium 140, potassium 4, chloride 107, CO2 25 , BUN 12, creatinine 0.6, glucose 85. CBC shows WBC 6.3, hemoglobin 11, hematocrit 33, platelets 192. Chest x-ray shows left pleural effusion with adjacent infiltrate. EKG shows normal sinus rhythm, no acute ST-T changes seen. ASSESSMENT: 1. Fever, cough, possible pneumonia, left lower lobe. 2. Chronic obstructive pulmonary disease, end stage, with acute exacerbation. 3. Acute on chronic respiratory failure. 4. Generalized weakness. 5. Hypertension. 6. Coronary artery disease status post coronary artery bypass graft. 7. Anxiety disorder. 8. Diabetes mellitus. 9. Chronic back pain. 10. History of hip fractures. PLAN: 1. Vital signs q.4 hours. 2. Activity as tolerated. 3. Allergies, penicillin and levofloxacin. 4. IV fluids, half normal at 60 mL/hour. 5. Diet, ADA. 6. Accu-Cheks before meals and at bedtime. Sliding scale mild with regular insulin. 7. Cefepime 1 g IV piggyback q.8 hours. 8. Vancomycin 1 g IV piggyback q.12 hours. 9. Solu-Medrol 20 mg IVP q.6 hours. 10. DuoNeb 1 unit q.i.d. 11. Mucinex 600 b.i.d. CODE STATUS: Her code status was discussed with the patient, family, the daughters, they all want the patient to be DNR, so the patient will be DNAR. Job ID: [id number] [facility]
[2018-10-26] MEDS: Cefepime 1 GM in Sodium Chloride 0.9% 100 ML IVPB SCH ×3 (03:31→19:33)
[2018-10-26] MEDS ORDERED: Vancomycin HCl 750 MG in Sodium Chloride 0.9% 250 ML 250 ML IVPB SCH (05:00)
[2018-10-26] MEDS: Mometasone/Formoterol 120 PUFF INHALER INH SCH ×2 (06:42→18:15)
[2018-10-26] MEDS: Amlodipine 5 MG TAB PO SCH (08:25)
[2018-10-26] MEDS: Ascorbic Acid 500 mg Chewable Tablet PO SCH ×2 (08:25→19:31)
[2018-10-26] MEDS: guaiFENesin ER 600 MG TAB PO SCH ×2 (08:27→19:30)
[2018-10-26] MEDS: Acetaminophen/Codeine 30-300mg Tablet PO SCH ×4 (08:27→19:30)
[2018-10-26] MEDS: Escitalopram Oxalate 20 mg Tablet PO SCH (08:27)
[2018-10-26] MEDS: Carvedilol 6.25 MG TAB PO SCH ×2 (08:27→19:31)
[2018-10-26] MEDS: Furosemide 20 MG TAB PO SCH (08:29)
[2018-10-26] MEDS: ALPRAZolam 0.5 MG TAB PO SCH ×3 (08:29→19:32)
[2018-10-26] MEDS: Aspirin 81 mg Enteric Coated Tablet PO SCH ×2 (08:29→19:32)
[2018-10-26] MEDS: Lisinopril 20 MG TAB PO SCH ×2 (08:30→19:33)
[2018-10-26] MEDS: Polyethylene Glycol 3350 17 GM Packet PO SCH (08:30)
--- NOTE | 2018-10-26 09:32 | CT ---
CHEST CT SCAN WITH IV CONTRAST: History: Pneumonia, shortness of breath. Comparison: 03-27-18 CT angio and 10-25-18 chest radiograph. FINDINGS: Again noted are very extensive bilateral bullous emphysema changes with some post-operative changes a nd scarring in the left upper lobe. Extensive three vessel coronary artery calcific disease. There ar e bilateral pleural effusions, moderate on the left side and small on the right side with some bilate ral lower lobe parenchymal changes, evidence for bibasilar atelectasis and/or pneumonia, worse on the left side and new from the prior 2018 study. Old granulomatous disease. Atherosclerotic ectatic ng ges of the aorta. Evidence for status post cholecystectomy with ductal dilatation of the common duct and inferior hepatic ducts with somewhat more marked ductal dilatation than on the 03-27-18 study. Part ially visualized 3.6 cm diameter abdominal aneurysm seen on the caudal most image. This corresponds t o a 3.6 cm diameter aneurysm seen on a prior abdominal CT scan of 10-29-17. There appears to be a moder ate amount of fluid or soft tissue density within both right and left lower lobe bronchial tree, grea ter on the left side, possibly extensive mucous or even aspiration. Stable bilateral adrenal masses f rom 10-29-17. IMPRESSION: Developing bilateral pleural effusions, larger on the left side, with developing atelectasis in both lower lobes with what appears to be some probable mucous or fluid in both right and left lower lobe b ronchial tree, worse on the left side. The possibility of associated aspiration pneumonia is a consid eration. Extensive hyperinflation and chronic lung changes and old scarring and old granulomatous dis ease bilaterally, all of which appear stable. Other findings as above. Continued short term follow up chest x-rays for resolution or stability. Stable bilateral adrenal masses from 10-29-17. POS: [facility]
--- NOTE | 2018-10-26 12:09 | CON ---
DATE OF CONSULTATION: 10/26/2018 CONSULTING PHYSICIAN: Tenzin Gonzalez MD. Following encompasses 70 minutes time, of that time, greater than 50% spent with the patient and/or the patient's unit in the hospital. REASON FOR CONSULTATION: Pneumonia. HISTORY OF PRESENT ILLNESS: Ms. Marlow is an 78-year-old female with a history of chronic obstructive pulmonary disease, who has been having difficulty of correction with cough and fever. She was initially treated with Rocephin at the correction, but apparently was still experiencing symptoms. She is a very poor historian. Her daughter is at the bedside, but also cannot give much to the history. PAST MEDICAL HISTORY: 1. End-stage COPD, requiring oxygen. 2. Coronary artery disease, requiring coronary bypass grafting surgery. 3. Hypertension. 4. Diabetes mellitus. 5. Anxiety. 6. Chronic pain. 7. Protein-calorie malnutrition. 8. Gastroesophageal reflux. 9. Stroke. 10. Hip fracture. 11. Osteoporosis. PAST SURGICAL HISTORY: 1. CABG. 2. ORIF of left hip and right hip. MEDICATIONS: Prior to admission; 1. Tylenol No. 3. 2. Xanax. 3. Amlodipine. 4. Vitamin C. 5. Aspirin. 6. Coreg. 7. Digoxin. 8. Lexapro. 9. Estradiol. 10. Pepcid. 11. Breo Ellipta. 12. DuoNeb. 13. Lisinopril. 14. Metformin. 15. MiraLAX. 16. Simvastatin. 17. Restoril. 18. Remeron. ALLERGIES: SHE IS ALLERGIC TO PENICILLIN AND LEVAQUIN. FAMILY MEDICAL HISTORY: Unremarkable. SOCIAL HISTORY: She smoked for a long time, quit several months ago. Does not consume alcohol. She lives in a correction. REVIEW OF SYSTEMS: 12-point review of systems is basically unobtainable because the patient will not cooperate. PHYSICAL EXAMINATION: VITAL SIGNS: Temperature 97.5, pulse 85, blood pressure 126/61, O2 saturation 92% on 2 L, and respiratory rate 20. GENERAL: She does not appear in any distress at this time. HEENT: Unremarkable. NECK: Without adenopathy, JVD, or bruits. LUNGS: She has crackles in the left base. CARDIAC: S1 and S2 regular without murmur. ABDOMEN: Soft and nontender. EXTREMITIES: No clubbing or cyanosis. She has severe muscle wasting. LABORATORY DATA: White blood cell count 6.3, hematocrit 36.4, and platelet count 192. Albumin is 2.8. Sodium 140, potassium 4, chloride 107, CO2 of 24, BUN 12, creatinine 0.6, and glucose 85. Urinalysis was negative. CT of the chest was reviewed, shows infiltrative changes particularly in the left base. She has small bilateral effusions. She has a granulomatous disease. ASSESSMENT: 1. Pneumonia-question of aspiration. 2. Chronic obstructive pulmonary disease. 3. Protein-calorie malnutrition with severe hypoalbuminemia. RECOMMENDATIONS: 1. Agree with continued IV antibiotics. 2. Consult Speech Therapy for swallowing study to see if her swallowing is causing chronic aspiration and leading to these episodes of pneumonia. 3. If she has not already had influenza and pneumonia vaccination, she needs to have those performed. Job ID: [id number]
[2018-10-26] MEDS ORDERED: Sterile Water 10 ML ONE (12:54)
[2018-10-26] MEDS: Sodium Chloride 0.45% 1,000 ML IV SCH (15:47)
[2018-10-26] MEDS: Mirtazapine 15 MG TAB PO SCH (19:31)
[2018-10-26] MEDS: Temazepam 15 MG CAP PO SCH (19:31)
[2018-10-26] MEDS: Simvastatin 20 MG TAB PO SCH (19:32)
[2018-10-26] MEDS: Estradiol 1 MG TAB PO SCH (19:32)
[2018-10-27] MEDS: methylPREDNISolone Sod Succ 40 MG VIAL IVP SCH ×2 (00:08→04:17)
[2018-10-27] MEDS: Cefepime 1 GM in Sodium Chloride 0.9% 100 ML IVPB SCH ×3 (04:17→20:09)
[2018-10-27] MEDS: Sodium Chloride 0.45% 1,000 ML IV SCH ×2 (04:17→16:32)
[2018-10-27] MEDS: Mometasone/Formoterol 120 PUFF INHALER INH SCH ×2 (06:46→20:09)
[2018-10-27] MEDS: Furosemide 20 MG TAB PO SCH (07:42)
[2018-10-27] MEDS: Lisinopril 20 MG TAB PO SCH ×2 (07:42→20:11)
[2018-10-27] MEDS: Acetaminophen/Codeine 30-300mg Tablet PO SCH ×4 (07:43→20:13)
[2018-10-27] MEDS: Carvedilol 6.25 MG TAB PO SCH ×2 (07:43→20:12)
[2018-10-27] MEDS: ALPRAZolam 0.5 MG TAB PO SCH ×3 (07:43→20:13)
[2018-10-27] MEDS: Amlodipine 5 MG TAB PO SCH (07:44)
[2018-10-27] MEDS: Aspirin 81 mg Enteric Coated Tablet PO SCH ×2 (07:44→20:13)
[2018-10-27] MEDS: Ascorbic Acid 500 mg Chewable Tablet PO SCH ×2 (07:44→20:13)
[2018-10-27] MEDS: guaiFENesin ER 600 MG TAB PO SCH ×2 (07:44→20:12)
[2018-10-27] MEDS: Escitalopram Oxalate 20 mg Tablet PO SCH (07:44)
[2018-10-27] MEDS: Polyethylene Glycol 3350 17 GM Packet PO SCH (07:45)
[2018-10-27] MEDS ORDERED: Digoxin 0.125 MG TAB PO SCH (09:00)
--- NOTE | 2018-10-27 09:18 | PRG ---
DATE OF SERVICE: 10/27/2018 SUBJECTIVE: She is in good spirits and wants to go home. OBJECTIVE: VITAL SIGNS: On exam, temperature 97.9, pulse 74, blood pressure 153/69, O2 saturation 93%. HEENT: Unremarkable. NECK: No JVD. CHEST: Fairly clear anteriorly. CARDIAC: S1, S2. Regular. ABDOMEN: Soft. EXTREMITIES: No edema. NEUROSURGERY: Speech Therapy consult demonstrated some moderate swallowing impairments. ASSESSMENT: Chronic aspiration. RECOMMENDATION: 1. Dietary modification. 2. Can switch to oral antibiotics at any time and finish treatment as an outpatient. 3. Would discontinue steroids. Job ID: [id number]
[2018-10-27] MEDS: Insulin Regular 300 UNITS/3 ML VIAL SC PRN ×2 (12:46→17:19)
[2018-10-27] MEDS: Mirtazapine 15 MG TAB PO SCH (20:12)
[2018-10-27] MEDS: Temazepam 15 MG CAP PO SCH (20:12)
[2018-10-27] MEDS: Simvastatin 20 MG TAB PO SCH (20:13)
[2018-10-27] MEDS: Estradiol 1 MG TAB PO SCH (20:13)
[2018-10-28] MEDS: Sodium Chloride 0.45% 1,000 ML IV SCH (05:11)
[2018-10-28] MEDS: Mometasone/Formoterol 120 PUFF INHALER INH SCH (07:18)
[2018-10-28] MEDS: Ascorbic Acid 500 mg Chewable Tablet PO SCH (08:53)
[2018-10-28] MEDS: Acetaminophen/Codeine 30-300mg Tablet PO SCH (08:54)
[2018-10-28] MEDS: ALPRAZolam 0.5 MG TAB PO SCH (08:54)
[2018-10-28] MEDS: Carvedilol 6.25 MG TAB PO SCH (08:55)
[2018-10-28] MEDS: Aspirin 81 mg Enteric Coated Tablet PO SCH (08:55)
[2018-10-28] MEDS: Escitalopram Oxalate 20 mg Tablet PO SCH (08:56)
[2018-10-28] MEDS: Lisinopril 20 MG TAB PO SCH (08:56)
[2018-10-28] MEDS: Amlodipine 5 MG TAB PO SCH (08:57)
[2018-10-28] MEDS: guaiFENesin ER 600 MG TAB PO SCH (08:57)
[2018-10-28] MEDS: Furosemide 20 MG TAB PO SCH (08:57)
[2018-10-28] MEDS ORDERED: Calcium Carbonate 500 MG TAB PO SCH (09:00)
[2018-10-28] MEDS ORDERED: Azithromycin 250 MG TAB PO SCH (09:00)
[2018-10-28] MEDS: Polyethylene Glycol 3350 17 GM Packet PO SCH (09:03)
--- NOTE | 2018-10-28 09:14 | PRG ---
DATE OF SERVICE: 10/28/2018 SUBJECTIVE: The patient is doing okay. Apparently, she was given Levaquin this morning even though she has allergy to that and developed some type of skin rash afterward. OBJECTIVE: VITAL SIGNS: On exam, temperature 97.5, pulse 65, respirations 24, O2 saturation 94%, blood pressure 176/75. HEENT: Unremarkable. NECK: No JVD. LUNGS: Coarse breath sounds. CARDIAC: S1 and S2. Regular. ABDOMEN: Soft. EXTREMITIES: No edema. ASSESSMENT: 1. Chronic aspiration. 2. Underlying chronic obstructive pulmonary disease. 3. Pneumonia due to aspiration. PLAN: 1. Switch to Zithromax, discontinue the Levaquin. 2. Safe to go to shelter. 3. Needs speech therapy in the shelter. Job ID: [id number]
[2018-10-28 12:43] VITALS: BP 148/73; TEMP 97.8
--- NOTE | 2018-10-29 16:00 | EKG ---
Test Reason : DYSPNEA Blood Pressure : / mmHG Vent. Rate : 071 BPM Atrial Rate : 071 BPM P-R Int : 108 ms QRS Dur : 078 ms QT Int : 404 ms P-R-T Axes : 000 028 003 degrees QTc Int : 439 ms Sinus rhythm with short [place] Septal infarct , age undetermined Abnormal ECG Confirmed by RAMON INFANTE ([id number]), film editor DAVID GREER ([id number]) on 10/29/2018 3:59:48 PM Referred By: Confirmed By:RAMON INFANTE
--- NOTE | 2018-10-31 10:37 | DIS ---
DATE OF ADMISSION: 10/25/2018 DATE OF DISCHARGE: 10/28/2018 ADMITTING DIAGNOSES: 1. Fever, cough, possible pneumonia, left lower lobe. 2. Chronic obstructive pulmonary disease, end-stage, acute exacerbation. 3. Acute on chronic respiratory failure. 4. Generalized weakness. 5. Hypertension. 6. Coronary artery disease, status post coronary artery bypass graft. 7. Anxiety disorder. 8. Diabetes mellitus. 9. Chronic back pain. FINAL DIAGNOSES: 1. Pneumonia, left lower lobe, possible aspiration. 2. Chronic obstructive pulmonary disease, acute exacerbation, improved. 3. Acute on chronic respiratory failure, improved. 4. Generalized weakness, improving. 5. Hypertension. 6. Coronary artery disease, status post coronary artery bypass graft. 7. Anxiety disorder. 8. Diabetes mellitus. 9. Chronic back pain. BRIEF SUMMARY OF HOSPITAL COURSE: Ms. Marlow is an 78-year-old female with past medical history of end-stage COPD, admitted because of cough, fever. The patient had a fever of 101. The patient had oral antibiotic [facility] as [facility]. Despite of that, the patient developed fever and cough. X-ray showed possible pneumonia in left lower lobe. In view of her failed outpatient therapy, the patient was admitted. She was started on cefepime and vancomycin initially. CT scan of her chest was done, which revealed possible aspiration pneumonia in the left lower lobe. In view of that, vancomycin was stopped and she was continued with cefepime. She had consultation with Pulmonary. The patient was seen by Dr. Reardon, who suggested speech and swallow evaluation in view of possible aspiration pneumonia. He states to continue antibiotic therapy with cefepime. In the next few days, her shortness of breath improved. Her chest wheezing resolved. Her fever resolved. Her diet was changed according to speech and swallow evaluation. The patient improved clinically. In view of improvement, the patient is being discharged home. PHYSICAL EXAMINATION: GENERAL: At the time of discharge, she was stable. VITAL SIGNS: Stable. LUNGS: Clear. HEART: Heart sounds regular. ABDOMEN: Soft, nontender. Bowel sounds present. DISCHARGE MEDICATIONS: 1. DuoNebs q.i.d. 2. Breo Ellipta one inhalation daily. 3. Tylenol with codeine 1 q.i.d. 4. Vitamin C 500 b.i.d. 5. Xanax 0.5 t.i.d. 6. Lisinopril 20 b.i.d. 7. Aspirin 81 mg b.i.d. 8. Coreg 6.25 b.i.d. 9. Calcium citrate 600 b.i.d. 10. Vitamin D 2000 units daily. 11. Restoril 30 mg at bedtime. 12. Simvastatin 20 mg at bedtime. 13. Remeron 7.5 at bedtime. 14. Amlodipine 5 mg daily. 15. Metformin 250 b.i.d. 16. MiraLAX 17 g daily. 17. Lasix 20 mg daily. 18. Lexapro 20 mg daily. 19. Estradiol 0.5 mg nightly. 20. Digoxin 0.125 daily. 21. Prednisone in tapering doses 40 mg daily for 2 days, then 30 mg daily for 2 days, then 20 mg daily for 2 days, then 10 mg daily for 2 days. 22. She will be on clindamycin 300 mg t.i.d. for 1 week. 23. She was also given Z-Giuliano. The patient did not tolerate Levaquin. The [facility] a [facility]. She will continue with her home oxygen. Job ID: [id number]
--- NOTE | 2018-10-31 11:47 | PQF ---
[employer] Asset Management Analyst Crystal Reports Winform ViewerROMULOCHRISTIAN CLINE, HARESH Negar OLSEN [phone] [phone] CLINICAL DOCUMENTATION CLARIFICATION FORM: POST DISCHARGE Addendum to original discharge summary date: ____ Late entry note date: __ Please exercise your independent, professional judgment in responding to the clarification form. Clinical indicators are provided on the bottom of this form for your review Please check appropriate box(s) to clarify if the following diagnosis has been ruled in or ruled out: SEPSIS (CDI/Coding list diagnosis here) [ ] Ruled in diagnosis [ ] Continue to treat [ ] Resolved [y ] Ruled out diagnosis [ ] Cannot rule out diagnosis [ ] Other diagnosis [ ] Unable to determine In addition, please specify: Present on Admission (POA): [ y] Yes [ ] No [ ] Unable to determine For continuity of documentation, please document condition throughout progress notes and discharge summary. Thank You. CLINICAL INDICATORS - SIGNS / SYMPTOMS / LABS SEPSIS- ED FEVER- ED, H&P ACUTE ON CHRONIC RESPIRATORY FAILURE- H&P RISK FACTORS ASPIRATION PNEUMONIA- ED, H&P, ALL CONSULTS AND PROGRESS NOTES TREATMENTS IV FLUIDS IN ER- ED, H&P PATIENT RECEIVED CEFEPIME AND VANCOMYCIN- H&P [employer] Asset Management Analyst Crystal Reports Winform Viewer(This form is maintained as a part of the permanent medical record) 2014 [employer]. All Rights Reserved Court [email or web address] [phone] MTDD
== END 2018-10-28 13:03 | DRG 177 ==
LOC: ERS 09:05 → ERHOLD 11:16 → T4-B 16:45
PROVIDERS: ADMIT Internal Medicine; ATTEND Internal Medicine
DX: J69.0 Pneumonitis due to inhalation of food and vomit (principal); J96.20 Acute and chronic respiratory failure, unspecified whether with hypoxia or hypercapnia; J44.1 Chronic obstructive pulmonary disease with (acute) exacerbation; E46 Unspecified protein-calorie malnutrition; Z68.1 Body mass index [BMI] 19.9 or less, adult; I10 Essential (primary) hypertension; I25.10 Atherosclerotic heart disease of native coronary artery without angina pectoris; E11.9 Type 2 diabetes mellitus without complications; F41.9 Anxiety disorder, unspecified; M54.9 Dorsalgia, unspecified; G89.29 Other chronic pain; K21.9 Gastro-esophageal reflux disease without esophagitis; Z66 Do not resuscitate; Z79.82 Long term (current) use of aspirin; Z88.0 Allergy status to penicillin; Z86.73 Personal history of transient ischemic attack (TIA), and cerebral infarction without residual deficits; Z95.1 Presence of aortocoronary bypass graft
CPT/HCPCS: 36415; 36416; 71045; 71260; 80053; 81003; 83605; 85025; 87040; 87804; 93005; 94640; 96361; 96365; 96367; A4216; J0690; J0692; J1815; J2920; J3370; J7050; J7620

== ENCOUNTER 2018-11-14 21:40 | Inpatient (IN) | payer MEDICARE ==
[2018-11-14 22:22] LABS: #Eosinphils 0.1 thou/uL (0.0-0.7); #Lymphocytes 1.3 thou/uL (1.20-3.40); #Monocytes 0.5 thou/uL (0.11-0.59); #Neutrophils 10.9 thou/uL (1.40-6.50); %Basophils 0.4 % (0.0-1.0); %Eosinophils 0.7 % (0.0-10.0); %Monocytes 4.1 % (0.0-10.0); Hemoglobin 12.3 g/dL (12.0-16.0); Mean Corpuscular Hemoglobin 32.1 pg (27.0-31.0); Mean Platelet Volume 7.3 fL (7.4-10.4); Platelet Count 138 thou/uL (130-400); RBC Distribution Width 14.1 % (11.5-14.5); Red Blood Cell (RBC) Count 3.84 mill/uL (4.20-5.40); White Blood Cell (WBC) Count 12.8 thou/uL (4.8-10.8)
--- NOTE | 2018-11-14 22:33 | RAD ---
PORTABLE CHEST: Indications: Cough. Comparison: 10-25-18 FINDINGS: Left basilar infiltrate is again seen. Upper lung mantilla remain clear. Heart is mildly enlarged with post op sternotomy change. Vasculature is within normal range. IMPRESSION: Left basilar consolidation and/or atelectasis. Similar findings were noted on 10-25-18. POS: [facility]
[2018-11-14 22:44] LABS: ALT (SGPT) 13 U/L (8-55); AST (SGOT) 23 U/L (5-34); Albumin 3.2 g/dL (3.4-4.8); Alkaline Phosphatase 80 U/L (40-150); Anion Gap 12 mmol/L (10-20); BUN (Urea Nitrogen) 22 mg/dL (9.8-20.1); Bilirubin, Total 0.8 mg/dL (0.2-1.2); Calc. Creatinine Clearance 0 mL/min (70-130); Calcium 9.5 mg/dL (7.8-10.44); Carbon Dioxide 28 mmol/L (23-31); Chloride 102 mmol/L (98-107); Estimated GFR-MDRD 72; Glucose 124 mg/dL (83-110); Potassium 4.3 mmol/L (3.5-5.1); Protein, Total 7.2 g/dL (6.0-8.3); Sodium 138 mmol/L (136-145)
[2018-11-14] MEDS ORDERED: Aztreonam 2 GM in Sodium Chloride 0.9% 100 ML IVPB SCH (23:45)
[2018-11-14] MEDS ORDERED: Acetaminophen 325 MG TAB ONE (23:59)
[2018-11-15 00:14] LABS: Bilirubin Negative (Negative); Blood, Urine Negative (Negative); Clarity CLEAR (Clear); Glucose, Urine (Dipstick) Negative (Negative); Leukocyte Negative (Negative); Nitrite Negative (Negative); Protein, Urine (Dipstick) Negative (Neg-Trace); Specific Gravity, Urine 1.022 (1.002-1.036); pH, Urine 7.5 (5.0-9.0)
[2018-11-15 00:55] LABS: Troponin I Less than 0.010 ng/mL (< 0.028)
[2018-11-15 01:51] VITALS: BMI 15.5
[2018-11-15 04:06] LABS: Troponin I Less than 0.010 ng/mL (< 0.028)
[2018-11-15] MEDS ORDERED: Ascorbic Acid 500 mg Chewable Tablet PO SCH (09:00)
[2018-11-15] MEDS ORDERED: guaiFENesin ER 600 MG TAB PO SCH ×3 (09:00→21:00)
[2018-11-15] MEDS ORDERED: Prevnar 13-Val Conj/PF 0.5 ML SYRINGE IM ONE (09:00)
[2018-11-15] MEDS ORDERED: Senokot 8.6 MG TAB PO PRN (09:04)
[2018-11-15] MEDS ORDERED: Guaifenesin DM 100-10/5 ML UDCUP PO PRN (09:12)
[2018-11-15] MEDS: Aztreonam 2 GM in Sodium Chloride 0.9% 100 ML IVPB SCH ×2 (09:44→18:23)
[2018-11-15] MEDS ORDERED: Acetaminophen/Codeine 30-300mg Tablet PO SCH (09:45)
[2018-11-15] MEDS: ALPRAZolam 0.5 MG TAB PO SCH ×3 (09:55→20:37)
[2018-11-15] MEDS: Amlodipine 5 MG TAB PO SCH (09:55)
[2018-11-15] MEDS: Calcium Citrate 950 MG TAB PO SCH ×2 (09:56→20:35)
[2018-11-15] MEDS: Escitalopram Oxalate 20 mg Tablet PO SCH (09:56)
[2018-11-15] MEDS: Digoxin 0.125 MG TAB PO SCH (09:56)
[2018-11-15] MEDS: Aspirin 81 mg Enteric Coated Tablet PO SCH ×2 (09:56→20:35)
[2018-11-15] MEDS: Carvedilol 6.25 MG TAB PO SCH ×2 (09:56→20:38)
[2018-11-15] MEDS: Polyethylene Glycol 3350 17 GM Packet PO SCH (09:58)
[2018-11-15] MEDS ORDERED: methylPREDNISolone Sod Succ/PF 125 MG/2 ML VIAL IVP SCH (10:00)
[2018-11-15] MEDS: Clindamycin/D5W 300 MG in Premix Bag 1 BAG IVPB SCH ×3 (12:02→23:36)
[2018-11-15] MEDS: Acetaminophen/Codeine 30-300mg Tablet PO SCH ×3 (12:03→20:36)
[2018-11-15] MEDS: metFORMIN 500 MG TAB PO SCH (16:34)
[2018-11-15] MEDS: methylPREDNISolone Sod Succ 40 MG VIAL IVP SCH ×2 (17:27→20:39)
[2018-11-15] MEDS ORDERED: Dextrose 5% in Water 1,000 ML IV PRN (18:44)
[2018-11-15] MEDS ORDERED: Dextrose 50% Abboject 50 ML SYRINGE IVP PRN (18:44)
[2018-11-15] MEDS: Mometasone/Formoterol 120 PUFF INHALER INH SCH (19:02)
[2018-11-15] MEDS: Estradiol 1 MG TAB PO SCH (20:34)
[2018-11-15] MEDS: Mirtazapine 15 MG TAB PO SCH (20:35)
[2018-11-15] MEDS: Atorvastatin Calcium 10 MG TAB PO SCH (20:35)
[2018-11-15] MEDS: Lisinopril 20 MG TAB PO SCH (20:38)
[2018-11-15] MEDS: Temazepam 15 MG CAP PO SCH (20:39)
[2018-11-15] MEDS: Sodium Chloride 0.9% 1,000 ML IV SCH (21:22)
[2018-11-15] MEDS ORDERED: Sodium Chloride 0.9% 250 ML IV SCH (21:30)
[2018-11-16] MEDS: Aztreonam 2 GM in Sodium Chloride 0.9% 100 ML IVPB SCH ×3 (01:29→18:19)
[2018-11-16] MEDS: methylPREDNISolone Sod Succ 40 MG VIAL IVP SCH ×5 (04:08→23:04)
[2018-11-16] MEDS: Sodium Chloride 0.9% 1,000 ML IV SCH ×3 (05:47→10:16)
[2018-11-16] MEDS: Clindamycin/D5W 300 MG in Premix Bag 1 BAG IVPB SCH ×4 (05:47→23:08)
[2018-11-16] MEDS: Mometasone/Formoterol 120 PUFF INHALER INH SCH ×2 (06:38→18:37)
[2018-11-16] MEDS: Furosemide 20 MG TAB PO SCH (07:26)
[2018-11-16] MEDS: Lisinopril 20 MG TAB PO SCH ×2 (08:19→20:26)
[2018-11-16] MEDS: Amlodipine 5 MG TAB PO SCH (08:19)
[2018-11-16] MEDS: Polyethylene Glycol 3350 17 GM Packet PO SCH (08:20)
[2018-11-16] MEDS: metFORMIN 500 MG TAB PO SCH ×2 (08:31→16:18)
[2018-11-16] MEDS: ALPRAZolam 0.5 MG TAB PO SCH ×3 (08:32→20:27)
[2018-11-16] MEDS: Acetaminophen/Codeine 30-300mg Tablet PO SCH ×4 (08:32→20:27)
[2018-11-16] MEDS: Aspirin 81 mg Enteric Coated Tablet PO SCH ×2 (08:33→20:20)
[2018-11-16] MEDS: Carvedilol 6.25 MG TAB PO SCH ×2 (08:33→20:21)
[2018-11-16] MEDS: Escitalopram Oxalate 20 mg Tablet PO SCH (08:33)
[2018-11-16] MEDS: Ascorbic Acid 500 mg Chewable Tablet PO SCH (08:33)
[2018-11-16] MEDS: Calcium Citrate 950 MG TAB PO SCH ×2 (08:33→20:22)
--- NOTE | 2018-11-16 08:35 | HP ---
CHIEF COMPLAINT: Fever, cough, and shortness of breath. HISTORY OF PRESENT ILLNESS: Kashmir is an 78-year-old female with past medical history of end-stage COPD, started having low-grade fever, cough productive with yellow sputum and also having some trouble breathing. The patient said she is not feeling well at all, started yesterday the whole day lasted and it continued to get worse. Did not have any chest pain, nausea, or vomiting. The patient has not been eating well for the last day or two. Initially, she did not want to go to the hospital, later she decided to go to the hospital because of worsening symptoms. The patient was seen in the emergency room and evaluated, found to have persistent infiltrate in the left lower lobe, suspected pneumonia. The patient was treated a few weeks ago for the same problem. The patient given Azactam 2 g as well as vancomycin and gentamycin and admitted for further evaluation and management. PAST MEDICAL HISTORY: 1. COPD, end-stage. 2. Hypertension. 3. Diabetes mellitus. 4. Hyperlipidemia. 5. Anxiety disorder. 6. Chronic back pain. 7. Protein-calorie malnutrition. 8. Gastroesophageal reflux disease. 9. Coronary artery disease, status post CABG. 10. History of CVA. 11. History of osteoporosis. PAST SURGICAL HISTORY: 1. Status post CABG. 2. Status post ORIF. 3. Bilateral hip fractures. CURRENT MEDICATIONS: The patient is on: 1. Estradiol 0.5 mg at bedtime. 2. Breo Ellipta one inhalation daily. 3. Lasix 20 mg daily. 4. Robitussin b.i.d. p.r.n. 5. Mucinex 600 b.i.d. 6. DuoNeb q.i.d. 7. Lisinopril 20 mg b.i.d. 8. Metformin 250 b.i.d. 9. Remeron 7.5 daily. 10. Tylenol No.3 q.6 hours p.r.n. 11. Xanax 0.5 t.i.d. 12. Amlodipine 5 mg daily. 13. Vitamin C daily. 14. Aspirin 81 mg daily. 15. Calcium 600 b.i.d. 16. Coreg 6.25 b.i.d. 17. Vitamin D3 of 2000 units daily. 18. Digoxin 0.125 daily. 19. Lexapro 20 mg daily. 20. MiraLAX 17 g daily. 21. She was also on prednisone tapering doses. 22. Senokot p.r.n. 23. Simvastatin 20 mg at bedtime. 24. Temazepam 30 mg at bedtime. ALLERGIES: PENICILLIN, LEVOFLOXACIN, AND CEPHALOSPORIN. FAMILY HISTORY: Nothing contributory. SOCIAL HISTORY: The patient lives in retirement. No history of smoking. No history of alcohol intake. REVIEW OF SYSTEMS: CARDIOVASCULAR: No chest pain. Has shortness of breath. RESPIRATORY: Has cough and fever. GASTROINTESTINAL: No nausea or vomiting. No abdominal pain. GENITOURINARY: No dysuria or hematuria. CENTRAL NERVOUS SYSTEM: No headache. No dizziness. PHYSICAL EXAMINATION: GENERAL: The patient is alert, awake, and oriented x3. VITAL SIGNS: Temperature 99, pulse 97, respirations 20, and blood pressure 114/60. HEENT: Head is normocephalic and atraumatic. Pupils are equal and reactive. Nasopharynx is pale and dry. Hard and soft palpate, no lesions. SKIN: Turgor decreased. NECK: Supple. No JVD. LUNGS: Breath sounds diminished bilaterally. Percussion dull expiratory wheeze present. Rales present in left lower zone. HEART: S1 and S2 regular. ABDOMEN: Soft. No distention. No tenderness. Normal bowel sounds. RECTAL: No symptoms. CENTRAL NERVOUS SYSTEM: No focal deficit. EXTREMITIES: 1+ pitting edema. LABORATORY DATA: CBC shows WBC 12, hemoglobin 12, hematocrit 39, platelets 138. Metabolic panel; sodium 138, potassium 4.3, chloride 102, CO2 28, BUN 22, creatinine 0.7, glucose 134. Troponin I less than 0.010. Urinalysis is negative. Chest x-ray shows infiltrate in left lower lobe. EKG shows accelerated junctional rhythm, no acute ST-T changes seen. ASSESSMENT: 1. Pneumonia, left lower lobe. 2. Fever and weakness. 3. Chronic obstructive pulmonary disease, end-stage, acute exacerbation. 4. Acute on chronic respiratory failure. 5. Diabetes mellitus. 6. Hypertension. 7. Chronic pain. 8. Anxiety disorder. 9. History of coronary artery disease, status post coronary artery bypass graft. 10. Pneumonia, aspiration. PLAN: 1. Vital signs q.4 hours. 2. Activities: As tolerated. 3. Allergies: Penicillin, Levaquin, and Omnicef. 4. Hep-Lock. 5. Diet: ADA. 6. Azactam 2 g IV piggyback q.8 hours. 7. Clindamycin 300 mg IV piggyback q.6 hours. 8. Continue retirement medications. 9. Accu-Chek before meals and at bedtime. Sliding scale with regular insulin. Job ID: [id number]
--- NOTE | 2018-11-16 15:28 | RAD ---
MODIFIED BARIUM SWALLOW PERFORMED WITH SPEECH THERAPIST: History: Dyshagia with feeding difficulties The patient was given a variety of materials from thin liquid to a barium-coated gram cracker. With the spoon sip of thin liquid, there was prompt aspiration. On thicker materials, there was penetrati on but no aspiration demonstrated. Penetration was definitely improved with the chin tucked. There is persistent residue and some spillage to the vallecula region also noted. IMPRESSION: Episodes of aspiration and penetration, aspiration being with thin liquid. POS: RYAN
[2018-11-16] MEDS: Mirtazapine 15 MG TAB PO SCH (20:21)
[2018-11-16] MEDS: Atorvastatin Calcium 10 MG TAB PO SCH (20:21)
[2018-11-16] MEDS: Estradiol 1 MG TAB PO SCH (20:21)
[2018-11-16] MEDS: Temazepam 15 MG CAP PO SCH (20:22)
--- NOTE | 2018-11-16 22:57 | CON ---
DATE OF CONSULTATION: 11/16/2018 REASON FOR CONSULTATION: Cough, dyspnea with sputum production. HISTORY OF PRESENT ILLNESS: An 78-year-old patient, history of COPD, coronary artery disease and prior CVA, mobility impairment, who is a [facility] and developed progressively worsening fever with cough, productive of yellow sputum, associated with dyspnea. She was eventually admitted and initial findings included temperature 99, pulse 97, BP 114/60, and respiratory rate 20. There were diminished breath sounds bilaterally. The heart exam showed regular rate without murmurs. Abdomen, soft without tenderness. Initial white cell count 12,000, hemoglobin 12, hematocrit 39, platelets 138, creatinine 0.7. Urinalysis was normal. Microbiology thus far we have bacillus, probably contaminant of one set of blood cultures. I do not think any specimen was submitted for sputum evaluation. She had a speech therapy evaluation. It showed episodes of aspiration and penetration with thin liquid. Currently, she is awake. She is feeling a little better. Still coughing intermittently. No headaches. No visual symptoms. No sore throat. No vomiting. No back pain. No abdominal pain. She is voiding in the diaper. She ambulates with assistance, but not by herself. PAST MEDICAL HISTORY: Advanced COPD, prior CVA, type 2 diabetes, chronic back pain, protein-calorie malnutrition, coronary artery disease with bypass graft surgery in the past, osteoporosis, hypertension, recurrent pneumonias. This is the 5th episode of pneumonia over the past 12 months reportedly. PAST SURGICAL HISTORY: Includes also open reduction and internal fixation of hip fractures. ALLERGIES: SHE IS ALLERGIC TO PENICILLIN, LEVOFLOXACIN, CEPHALOSPORINS. FAMILY HISTORY: Noncontributory. SOCIAL HISTORY: [facility] resident. Reportedly, no smoking history or alcoholic beverage use. CURRENT MEDS: 1. DuoNeb. 2. Xanax. 3. Norvasc. 4. Vitamin C. 5. Aspirin. 6. Lipitor. 7. Aztreonam. 8. Clindamycin. 9. Glucophage. 10. Mometasone. 11. Temazepam. PHYSICAL EXAMINATION: VITAL SIGNS: Temperature max 99, blood pressure 114/58, pulse 72, respirations 16, O2 saturation 95%. SKIN: Area of stage II in the presacral region. She has a peripheral IV access and is voiding in the diaper. LYMPH NODES: No lymphadenopathy. GENERAL: Appears chronically ill. HEENT: Ocular movements conjugate. The pupils are equal. Conjunctivae normal. Nasal passage is patent. Oral cavity is normal. She has upper dentures and a few teeth still in the bottom mandible with quite a bit of decay and gum disease. NECK: Supple. No jugular vein distention. LUNGS: Symmetric air entry with bilateral inspiratory crackles at the bases. HEART: S1, S2. Regular rate. ABDOMEN: Soft, not distended. No ascites. No bladder distention. EXTREMITIES: She is able to move extremities, although she is diffusely weak, but no focal weakness. NEURO: She is oriented to self, place, and time. Fairly decent recollection. FOLLOWUP LABORATORY DATA: We do not have a second set of labs yet. Liver panel has been normal. Albumin 3.2 and globulin 4.0. Chest x-ray with bibasilar consolidation and/or atelectasis. ASSESSMENT: 1. Previous cerebrovascular accident, reported chronic obstructive pulmonary disease, although no history of smoking. She may have bronchiectasis and consequences of the known cystic fibrosis, bronchiectasis is a possibility. 2. Recurrent pneumonias. 3. Documented aspiration. DISCUSSION: Most likely scenario is aspiration pneumonia. She will have to have a formal management by Speech Therapy to try to improve this and care taken during oral intake to reduce the frequency of aspiration. Microaspiration, nocturnal aspiration is a major concern as well in those patients. Lately, aspiration pneumonias have been noted not to be associated as much with anaerobes as in the past. She does have a history of allergy to those medications including penicillin, cefdinir. I am not sure if the penicillin allergy is a legitimate concern. Usual treatment for aspiration pneumonia should not last more than 5-7 days. She was admitted on the , so another 4 or 5 days should be enough in terms of antimicrobial therapy. Eventually, we could envision transition to oral doxycycline plus Cleocin for completion of the treatment course. The alternate possibility would be an atypical pathogen that is not resolved, for example mycobacterial pathogen. I would encourage submission of sputums for mycobacterial and fungal cultures to make sure that we were not missing that possibility. Foreign body aspiration can also be associated with recurring episodes of pneumonia, but her episodes seem to affect different areas of the lungs, so that would be less likely. Job ID: [id number]
[2018-11-17] MEDS: Aztreonam 2 GM in Sodium Chloride 0.9% 100 ML IVPB SCH ×3 (01:59→18:41)
[2018-11-17] MEDS: Clindamycin/D5W 300 MG in Premix Bag 1 BAG IVPB SCH ×3 (05:59→18:36)
[2018-11-17] MEDS: Sodium Chloride 0.9% 1,000 ML IV SCH (05:59)
[2018-11-17] MEDS: methylPREDNISolone Sod Succ 40 MG VIAL IVP SCH ×3 (05:59→18:36)
[2018-11-17 06:11] LABS: Anion Gap 11 mmol/L (10-20); BUN (Urea Nitrogen) 29 mg/dL (9.8-20.1); Calc. Creatinine Clearance 53 mL/min (70-130); Calcium 8.9 mg/dL (7.8-10.44); Carbon Dioxide 23 mmol/L (23-31); Chloride 111 mmol/L (98-107); Estimated GFR-MDRD Greater than 90; Glucose 129 mg/dL (83-110); Potassium 4.2 mmol/L (3.5-5.1); Sodium 141 mmol/L (136-145)
[2018-11-17] MEDS: Mometasone/Formoterol 120 PUFF INHALER INH SCH ×2 (06:37→19:14)
[2018-11-17] MEDS: Acetaminophen/Codeine 30-300mg Tablet PO SCH ×4 (09:20→21:05)
[2018-11-17] MEDS: Lisinopril 20 MG TAB PO SCH ×2 (09:22→21:04)
[2018-11-17] MEDS: Digoxin 0.125 MG TAB PO SCH (09:22)
[2018-11-17] MEDS: Ascorbic Acid 500 mg Chewable Tablet PO SCH ×2 (09:22→09:29)
[2018-11-17] MEDS: Escitalopram Oxalate 20 mg Tablet PO SCH (09:22)
[2018-11-17] MEDS: Calcium Citrate 950 MG TAB PO SCH ×2 (09:22→21:06)
[2018-11-17] MEDS: Aspirin 81 mg Enteric Coated Tablet PO SCH ×2 (09:22→21:06)
[2018-11-17] MEDS: ALPRAZolam 0.5 MG TAB PO SCH ×3 (09:22→21:03)
[2018-11-17] MEDS: Carvedilol 6.25 MG TAB PO SCH ×2 (09:22→21:03)
[2018-11-17] MEDS: Amlodipine 5 MG TAB PO SCH (09:23)
[2018-11-17] MEDS: Furosemide 20 MG TAB PO SCH (09:23)
[2018-11-17] MEDS: metFORMIN 500 MG TAB PO SCH ×2 (09:23→18:35)
[2018-11-17] MEDS: Polyethylene Glycol 3350 17 GM Packet PO SCH (09:24)
[2018-11-17] MEDS: Insulin Regular 300 UNITS/3 ML VIAL SC PRN ×2 (18:37→21:15)
[2018-11-17] MEDS: Estradiol 1 MG TAB PO SCH (20:59)
[2018-11-17] MEDS: Temazepam 15 MG CAP PO SCH (21:03)
[2018-11-17] MEDS: Atorvastatin Calcium 10 MG TAB PO SCH (21:03)
[2018-11-17] MEDS: Mirtazapine 15 MG TAB PO SCH (21:04)
[2018-11-18] MEDS: methylPREDNISolone Sod Succ 40 MG VIAL IVP SCH ×5 (00:20→23:47)
[2018-11-18] MEDS: Clindamycin/D5W 300 MG in Premix Bag 1 BAG IVPB SCH ×5 (00:21→23:47)
[2018-11-18] MEDS: Aztreonam 2 GM in Sodium Chloride 0.9% 100 ML IVPB SCH ×3 (03:00→18:47)
[2018-11-18] MEDS: Mometasone/Formoterol 120 PUFF INHALER INH SCH ×2 (06:45→19:34)
[2018-11-18] MEDS: Aspirin 81 mg Enteric Coated Tablet PO SCH ×2 (09:14→20:52)
[2018-11-18] MEDS: Calcium Citrate 950 MG TAB PO SCH ×2 (09:15→20:51)
[2018-11-18] MEDS: metFORMIN 500 MG TAB PO SCH ×2 (09:15→18:02)
[2018-11-18] MEDS: Escitalopram Oxalate 20 mg Tablet PO SCH (09:16)
[2018-11-18] MEDS: Ascorbic Acid 500 mg Chewable Tablet PO SCH (09:16)
[2018-11-18] MEDS: ALPRAZolam 0.5 MG TAB PO SCH ×3 (09:17→20:52)
[2018-11-18] MEDS: Lisinopril 20 MG TAB PO SCH ×2 (09:17→20:51)
[2018-11-18] MEDS: Furosemide 20 MG TAB PO SCH (09:18)
[2018-11-18] MEDS: Acetaminophen/Codeine 30-300mg Tablet PO SCH ×4 (09:18→20:52)
[2018-11-18] MEDS: Amlodipine 5 MG TAB PO SCH (09:18)
[2018-11-18] MEDS: Carvedilol 6.25 MG TAB PO SCH ×2 (09:20→20:53)
[2018-11-18] MEDS: Polyethylene Glycol 3350 17 GM Packet PO SCH (09:21)
[2018-11-18] MEDS: Insulin Regular 300 UNITS/3 ML VIAL SC PRN (18:04)
[2018-11-18] MEDS: Temazepam 15 MG CAP PO SCH (20:51)
[2018-11-18] MEDS: Mirtazapine 15 MG TAB PO SCH (20:51)
[2018-11-18] MEDS: Atorvastatin Calcium 10 MG TAB PO SCH (20:52)
[2018-11-18] MEDS: Estradiol 1 MG TAB PO SCH (20:52)
[2018-11-19] MEDS: Aztreonam 2 GM in Sodium Chloride 0.9% 100 ML IVPB SCH ×3 (03:12→18:16)
[2018-11-19] MEDS: methylPREDNISolone Sod Succ 40 MG VIAL IVP SCH ×4 (06:31→23:30)
[2018-11-19] MEDS: Clindamycin/D5W 300 MG in Premix Bag 1 BAG IVPB SCH ×4 (06:35→23:31)
[2018-11-19] MEDS: Mometasone/Formoterol 120 PUFF INHALER INH SCH ×2 (07:06→19:14)
[2018-11-19] MEDS: Amlodipine 5 MG TAB PO SCH (08:28)
[2018-11-19] MEDS: metFORMIN 500 MG TAB PO SCH ×2 (08:29→17:09)
[2018-11-19] MEDS: Digoxin 0.125 MG TAB PO SCH (08:30)
[2018-11-19] MEDS: Escitalopram Oxalate 20 mg Tablet PO SCH (08:30)
[2018-11-19] MEDS: Calcium Citrate 950 MG TAB PO SCH ×2 (08:30→20:11)
[2018-11-19] MEDS: Carvedilol 6.25 MG TAB PO SCH ×2 (08:31→20:13)
[2018-11-19] MEDS: Lisinopril 20 MG TAB PO SCH ×2 (08:31→20:11)
[2018-11-19] MEDS: ALPRAZolam 0.5 MG TAB PO SCH ×3 (08:31→20:11)
[2018-11-19] MEDS: Aspirin 81 mg Enteric Coated Tablet PO SCH ×2 (08:31→20:13)
[2018-11-19] MEDS: Ascorbic Acid 500 mg Chewable Tablet PO SCH (08:31)
[2018-11-19] MEDS: Furosemide 20 MG TAB PO SCH (08:31)
[2018-11-19] MEDS: Acetaminophen/Codeine 30-300mg Tablet PO SCH ×4 (08:32→20:11)
[2018-11-19] MEDS: Polyethylene Glycol 3350 17 GM Packet PO SCH (08:33)
[2018-11-19] MEDS: Temazepam 15 MG CAP PO SCH (20:12)
[2018-11-19] MEDS: Mirtazapine 15 MG TAB PO SCH (20:12)
[2018-11-19] MEDS: Atorvastatin Calcium 10 MG TAB PO SCH (20:13)
[2018-11-19] MEDS: Estradiol 1 MG TAB PO SCH (20:14)
[2018-11-19] MEDS: Insulin Regular 300 UNITS/3 ML VIAL SC PRN (23:31)
[2018-11-20] MEDS: Aztreonam 2 GM in Sodium Chloride 0.9% 100 ML IVPB SCH ×2 (02:43→11:00)
[2018-11-20 05:45] LABS: #Lymphocytes 0.8 thou/uL (1.20-3.40); #Monocytes 0.3 thou/uL (0.11-0.59); #Neutrophils 5.8 thou/uL (1.40-6.50); %Basophils 0.1 % (0.0-1.0); %Eosinophils 0.5 % (0.0-10.0); %Lymphocytes 11.1 % (21.0-51.0); %Monocytes 4.7 % (0.0-10.0); %Neutrophils 83.6 % (42.0-75.0); Hemoglobin 12.3 g/dL (12.0-16.0); Mean Corpuscular Hemoglobin 32.5 pg (27.0-31.0); Mean Corpuscular Volume 98.6 fL (78.0-98.0); Mean Platelet Volume 7.3 fL (7.4-10.4); Platelet Count 172 thou/uL (130-400); RBC Distribution Width 13.2 % (11.5-14.5); Red Blood Cell (RBC) Count 3.78 mill/uL (4.20-5.40)
[2018-11-20] MEDS: Clindamycin/D5W 300 MG in Premix Bag 1 BAG IVPB SCH ×2 (05:52→12:07)
[2018-11-20] MEDS: methylPREDNISolone Sod Succ 40 MG VIAL IVP SCH ×2 (05:52→11:02)
[2018-11-20 06:02] LABS: Anion Gap 14 mmol/L (10-20); BUN (Urea Nitrogen) 20 mg/dL (9.8-20.1); Calc. Creatinine Clearance 56 mL/min (70-130); Calcium 8.8 mg/dL (7.8-10.44); Carbon Dioxide 23 mmol/L (23-31); Chloride 105 mmol/L (98-107); Estimated GFR-MDRD Greater than 90; Glucose 104 mg/dL (83-110); Potassium 4.5 mmol/L (3.5-5.1); Sodium 137 mmol/L (136-145)
[2018-11-20] MEDS: Mometasone/Formoterol 120 PUFF INHALER INH SCH (06:31)
[2018-11-20] MEDS: Aspirin 81 mg Enteric Coated Tablet PO SCH ×2 (08:50→20:09)
[2018-11-20] MEDS: ALPRAZolam 0.5 MG TAB PO SCH ×3 (08:50→20:09)
[2018-11-20] MEDS: Calcium Citrate 950 MG TAB PO SCH ×2 (08:50→20:09)
[2018-11-20] MEDS: Furosemide 20 MG TAB PO SCH (08:51)
[2018-11-20] MEDS: Escitalopram Oxalate 20 mg Tablet PO SCH (08:51)
[2018-11-20] MEDS: Amlodipine 5 MG TAB PO SCH (08:52)
[2018-11-20] MEDS: Lisinopril 20 MG TAB PO SCH ×2 (08:52→20:06)
[2018-11-20] MEDS: Acetaminophen/Codeine 30-300mg Tablet PO SCH ×4 (08:53→20:07)
[2018-11-20] MEDS: Ascorbic Acid 500 mg Chewable Tablet PO SCH (08:54)
[2018-11-20] MEDS: metFORMIN 500 MG TAB PO SCH ×2 (08:54→17:57)
[2018-11-20] MEDS: Carvedilol 6.25 MG TAB PO SCH ×2 (08:54→20:10)
[2018-11-20] MEDS: Polyethylene Glycol 3350 17 GM Packet PO SCH (08:58)
[2018-11-20 09:08] LABS: Digoxin 0.36 ng/mL (0.8-2.0)
[2018-11-20] MEDS: Clindamycin 150 MG CAP PO SCH ×2 (17:56→20:09)
[2018-11-20] MEDS: Temazepam 15 MG CAP PO SCH (20:07)
[2018-11-20] MEDS: Mirtazapine 15 MG TAB PO SCH (20:08)
[2018-11-20] MEDS: Estradiol 1 MG TAB PO SCH (20:09)
[2018-11-20] MEDS: Doxycycline 100 MG CAP PO SCH (20:10)
[2018-11-21] MEDS ORDERED: predniSONE 20 MG TAB PO SCH (09:00)
[2018-11-21] MEDS: Polyethylene Glycol 3350 17 GM Packet PO SCH (09:08)
[2018-11-21] MEDS: Escitalopram Oxalate 20 mg Tablet PO SCH (09:09)
[2018-11-21] MEDS: Furosemide 20 MG TAB PO SCH (09:09)
[2018-11-21] MEDS: Digoxin 0.125 MG TAB PO SCH (09:09)
[2018-11-21] MEDS: Doxycycline 100 MG CAP PO SCH (09:09)
[2018-11-21] MEDS: Lisinopril 20 MG TAB PO SCH (09:09)
[2018-11-21] MEDS: Carvedilol 6.25 MG TAB PO SCH (09:10)
[2018-11-21] MEDS: Calcium Citrate 950 MG TAB PO SCH (09:10)
[2018-11-21] MEDS: ALPRAZolam 0.5 MG TAB PO SCH (09:10)
[2018-11-21] MEDS: Clindamycin 150 MG CAP PO SCH (09:10)
[2018-11-21] MEDS: Aspirin 81 mg Enteric Coated Tablet PO SCH (09:10)
[2018-11-21] MEDS: Acetaminophen/Codeine 30-300mg Tablet PO SCH (09:11)
[2018-11-21] MEDS: Amlodipine 5 MG TAB PO SCH (09:11)
[2018-11-21] MEDS: metFORMIN 500 MG TAB PO SCH (09:11)
[2018-11-21 11:30] VITALS: BP 109/73; TEMP 97.9
--- NOTE | 2018-11-22 11:32 | DIS ---
DATE OF ADMISSION: 11/15/2018 DATE OF DISCHARGE: 11/21/2018 ADMITTING DIAGNOSES: 1. Pneumonia, left lower lobe, fever and weakness. 2. Chronic obstructive pulmonary disease with acute exacerbation. 3. Acute on chronic respiratory failure. 4. Diabetes mellitus. 5. Hypertension. 6. Chronic pain. 7. Anxiety disorder. 8. History of coronary artery disease, status post coronary artery bypass graft. FINAL DIAGNOSES: 1. Pneumonia, left lower lobe, possible aspiration, improving. 2. Fever and weakness, improved. 3. Chronic obstructive pulmonary disease, end-stage with acute exacerbation, improved. 4. Acute on chronic respiratory failure, improved. 5. Diabetes mellitus. 6. Hypertension. 7. Chronic pain. 8. History of coronary artery disease, status post coronary artery bypass graft. BRIEF SUMMARY OF HOSPITAL COURSE: Ms. Marlow is an 78-year-old female admitted because of shortness of breath, cough, fever. The patient was found to have pneumonia and COPD exacerbation. The patient was started on IV antibiotics for possible aspiration with clindamycin and Azactam, Solu-Medrol and DuoNeb treatment. In the next few days, the patient still has some shortness of breath and cough, as well as some weakness, but patient was given some IV fluids after which she improved. Breathing has improved, coughing is less, no fever, her weakness improved, so her Solu-Medrol dose decreased and changed to prednisone. The swallow evaluation with modified barium swallow and the diet was changed to nectar-thick liquids. In view of the improvement, the patient is being discharged. PHYSICAL EXAMINATION: GENERAL: At the time of discharge, she was stable. VITAL SIGNS: Stable. LUNGS: Clear. HEART: Heart sounds regular. ABDOMEN: Soft, nontender. Bowel sounds present. DISCHARGE MEDICATIONS: Include; 1. DuoNeb q.i.d. 2. Breo Ellipta one inhalation daily. 3. Robitussin-DM 5 mL b.i.d. p.r.n. 4. Tylenol with Codeine 1 q.i.d. 5. Vitamin C 500 mg daily. 6. Xanax 0.5 mg t.i.d. 7. Lisinopril 20 mg b.i.d. 8. Aspirin 81 mg b.i.d. 9. Coreg 6.25 b.i.d. 10. Calcium citrate 600 mg b.i.d. 11. Vitamin D 2000 units daily. 12. Temazepam 30 mg at bedtime. 13. Simvastatin 20 mg at bedtime. 14. Remeron 7.5 mg at bedtime. 15. Amlodipine 5 mg daily. 16. Metformin 250 b.i.d. 17. MiraLAX 17 g daily. 18. Lasix 50 mg daily. 19. Lexapro 20 mg daily. 20. Estradiol 0.5 mg at bedtime. 21. Digoxin 0.125 mg every 2 days. 22. Mucinex 600 b.i.d. for 10 days. 23. Senokot daily p.r.n. 24. Doxycycline 100 mg b.i.d. for 5 days. 25. Clindamycin 300 mg q.i.d. for 5 days. 26. Prednisone tapering doses 40 mg daily for 7 days, 30 mg daily for 7 days, and 20 mg daily for 7 days and 10 mg daily. The patient will be followed up in Job ID: [id number]
[2018-11-28] MEDS ORDERED: predniSONE 20 MG TAB PO SCH (09:00)
[2018-12-05] MEDS ORDERED: predniSONE 20 MG TAB PO SCH (09:00)
[2018-12-12] MEDS ORDERED: predniSONE 5 MG TAB PO SCH (09:00)
== END 2018-11-21 12:58 | DRG 177 ==
LOC: ERS 21:40 → 2SE 11-15 00:25
PROVIDERS: ADMIT Internal Medicine; ATTEND Internal Medicine
DX: J69.0 Pneumonitis due to inhalation of food and vomit (principal); J96.20 Acute and chronic respiratory failure, unspecified whether with hypoxia or hypercapnia; J44.0 Chronic obstructive pulmonary disease with (acute) lower respiratory infection; J44.1 Chronic obstructive pulmonary disease with (acute) exacerbation; E46 Unspecified protein-calorie malnutrition; Z68.1 Body mass index [BMI] 19.9 or less, adult; E84.9 Cystic fibrosis, unspecified; R13.10 Dysphagia, unspecified; I10 Essential (primary) hypertension; E11.9 Type 2 diabetes mellitus without complications; G89.29 Other chronic pain; L89.152 Pressure ulcer of sacral region, stage 2; I25.10 Atherosclerotic heart disease of native coronary artery without angina pectoris; M81.0 Age-related osteoporosis without current pathological fracture; F41.9 Anxiety disorder, unspecified; Z95.1 Presence of aortocoronary bypass graft; Z86.73 Personal history of transient ischemic attack (TIA), and cerebral infarction without residual deficits; Z79.84 Long term (current) use of oral hypoglycemic drugs; Z79.82 Long term (current) use of aspirin; Z88.1 Allergy status to other antibiotic agents; Z88.0 Allergy status to penicillin
CPT/HCPCS: 36415; 36416; 51701; 71045; 74230; 80048; 80053; 80162; 81003; 83605; 84484; 85025; 87040; 93005; 94640; 96365; A4353; J1580; J1815; J2920; J2930; J3370; J3490; J7050; J7620

== ENCOUNTER 2019-01-06 20:14 | Inpatient (IN) | payer MEDICARE, MEDICAID ==
--- NOTE | 2019-01-06 20:56 | RAD ---
AP VIEW CHEST: 01/06/19 HISTORY: Cough. AP view chest obtained on 01/06/19. Comparison made to previous exam from 11/14/18. AP view chest demonstrates EKG leads seen over the chest. Sternotomy wires seen. There is blunting of the left costophrenic angle compatible with a small left sided pleural effusion or pleural scar. T his is unchanged since the previous exam from 11/14/18. Cardiomegaly and pulmonary vascular congestion is present. Prominent interstitial markings seen sammie tible with interstitial edema or interstitial fibrotic changes. IMPRESSION: Cardiomegaly and pulmonary vascular congestion. POS: LAWRENCE
[2019-01-06 20:58] LABS: #Eosinphils 0.1 thou/uL (0.0-0.7); #Lymphocytes 2.1 thou/uL (1.20-3.40); #Monocytes 0.7 thou/uL (0.11-0.59); #Neutrophils 7.1 thou/uL (1.40-6.50); %Eosinophils 0.7 % (0.0-10.0); %Lymphocytes 20.6 % (21.0-51.0); %Monocytes 7.4 % (0.0-10.0); %Neutrophils 71.2 % (42.0-75.0); Hemoglobin 10.6 g/dL (12.0-16.0); Mean Corpuscular HGB CONC 32.1 g/dL (32.0-36.0); Mean Corpuscular Hemoglobin 33.8 pg (27.0-31.0); Mean Platelet Volume 6.8 fL (7.4-10.4); Platelet Count 187 thou/uL (130-400); RBC Distribution Width 14.3 % (11.5-14.5); Red Blood Cell (RBC) Count 3.13 mill/uL (4.20-5.40)
[2019-01-06 21:27] LABS: Anion Gap 9 mmol/L (10-20); BUN (Urea Nitrogen) 29 mg/dL (9.8-20.1); Calc. Creatinine Clearance 46 mL/min (70-130); Calcium 9.6 mg/dL (7.8-10.44); Carbon Dioxide 35 mmol/L (23-31); Chloride 100 mmol/L (98-107); Estimated GFR-MDRD 66; Glucose 129 mg/dL (83-110); Potassium 3.8 mmol/L (3.5-5.1); Sodium 140 mmol/L (136-145)
[2019-01-06 21:46] LABS: Bilirubin Negative (Negative); Blood, Urine Negative (Negative); Clarity CLEAR (Clear); Glucose, Urine (Dipstick) Negative (Negative); Leukocyte Negative (Negative); Nitrite Negative (Negative); Protein, Urine (Dipstick) Negative (Neg-Trace); Urobilinogen 0.2 mg/dL (0.2-1.0)
[2019-01-06] MEDS ORDERED: SODIUM CHLORIDE 0.9% IVPB SCH (22:00)
[2019-01-06] MEDS ORDERED: GENTAMICIN SULFATE IVPB SCH (22:00)
[2019-01-06] MEDS ORDERED: Aztreonam 2 GM in Sodium Chloride 0.9% 100 ML IVPB SCH (22:00)
[2019-01-06] MEDS ORDERED: Aspirin 325 MG TAB ONE (22:28)
[2019-01-07 00:12] LABS: Troponin I 0.207 ng/mL (< 0.028)
[2019-01-07 03:20] LABS: Troponin I 0.196 ng/mL (< 0.028)
[2019-01-07 08:40] LABS: #Eosinphils 0.1 thou/uL (0.0-0.7); #Monocytes 0.7 thou/uL (0.11-0.59); #Neutrophils 8.2 thou/uL (1.40-6.50); %Eosinophils 1.1 % (0.0-10.0); %Lymphocytes 10.3 % (21.0-51.0); %Monocytes 6.6 % (0.0-10.0); Hemoglobin 11.6 g/dL (12.0-16.0); Mean Corpuscular HGB CONC 32.9 g/dL (32.0-36.0); Mean Corpuscular Hemoglobin 33.6 pg (27.0-31.0); Mean Platelet Volume 6.7 fL (7.4-10.4); Platelet Count 194 thou/uL (130-400); RBC Distribution Width 14.1 % (11.5-14.5); Red Blood Cell (RBC) Count 3.44 mill/uL (4.20-5.40); White Blood Cell (WBC) Count 9.9 thou/uL (4.8-10.8)
[2019-01-07 08:43] LABS: Actual Bicarbonate (HCO3a) 25.8 mEq/L (22-28); Base Excess (BEa) 0.7 mEq/L (-2.0 to +3.0); CO2 Tension 43.3 mmHg (35.0-45.0); Calcium, Ionized 1.24 mmol/L (1.12-1.30); Carboxyhemoglobin (COHb) 1.7 gm% (0.0-3.0); O2 Tension (PaO2) 62.1 mmHg (> 60.0); Potassium - ABG Lab 4.01 mmol/L (3.70-5.30); pH, Arterial 7.39 (7.35-7.45)
[2019-01-07 08:58] LABS: Anion Gap 9 mmol/L (10-20); BUN (Urea Nitrogen) 19 mg/dL (9.8-20.1); Calc. Creatinine Clearance 58 mL/min (70-130); Calcium 9.6 mg/dL (7.8-10.44); Carbon Dioxide 32 mmol/L (23-31); Chloride 102 mmol/L (98-107); Estimated GFR-MDRD 89; Glucose 110 mg/dL (83-110); Potassium 4.1 mmol/L (3.5-5.1); Sodium 139 mmol/L (136-145)
[2019-01-07] MEDS ORDERED: Bacteriostatic Water 30 ML VIAL FS PRN (09:11)
--- NOTE | 2019-01-07 09:13 | RAD ---
EXAM: CHEST ONE VIEW HISTORY: Respiratory distress COMPARISON: 01/06/2019 FINDINGS: Postsurgical changes related to CABG are again noted. Cardiac silhouette is magnified by projection b ut stable in size. Small left pleural effusion is again noted. There is an increase in left perihilar interstitial densities which do appear increased from the prior study with slight patchy de nsity at the left lung base. Findings may be related to infectious process or less likely asymmetric pulmonary edema. Mild chronic lung changes are seen. Calcified granuloma again overlies th e right upper lobe. Mild degenerative changes are seen in the spine. Vascular calcifications are seen in the thoracic aorta. IMPRESSION: 1. Increased interstitial densities on the left, greatest in a left perihilar distribution. Findings are likely related to infectious process. Asymmetric pulmonary edema is thought less likely. 2. Small left pleural effusion. 3. Continued follow-up to resolution is recommended.
[2019-01-07] MEDS ORDERED: Acetaminophen 325 MG TAB PO PRN ×2 (09:16→14:45)
[2019-01-07] MEDS ORDERED: ALPRAZolam 0.5 MG TAB PO PRN (09:17)
[2019-01-07] MEDS ORDERED: Dextrose 5% in Water 1,000 ML IV PRN (09:19)
[2019-01-07] MEDS ORDERED: Dextrose 50% Abboject 50 ML SYRINGE IVP PRN (09:19)
[2019-01-07 09:28] LABS: ALV-art Gradient 168.975 (0-20); Puncture Site RRA
[2019-01-07] MEDS ORDERED: Acetaminophen 325 MG TAB PO SCH (09:30)
[2019-01-07] MEDS ORDERED: ALPRAZolam 0.5 MG TAB PO SCH (09:30)
[2019-01-07] MEDS: methylPREDNISolone Sod Succ 40 MG VIAL IVP SCH ×3 (09:36→20:49)
[2019-01-07] MEDS: guaiFENesin ER 600 MG TAB PO SCH ×2 (09:36→20:52)
[2019-01-07] MEDS ORDERED: Senokot 8.6 MG TAB PO PRN (09:48)
[2019-01-07] MEDS ORDERED: Zinc Sulfate 220 MG CAP PO SCH (10:30)
[2019-01-07] MEDS ORDERED: Amlodipine 5 MG TAB PO SCH (10:30)
[2019-01-07] MEDS ORDERED: Calcium Citrate 950 MG TAB PO SCH (10:30)
[2019-01-07] MEDS ORDERED: Lisinopril 20 MG TAB PO SCH (10:30)
[2019-01-07] MEDS ORDERED: Multivitamin W/ Minerals 1 TAB PO SCH (10:30)
[2019-01-07] MEDS ORDERED: Carvedilol 6.25 MG TAB PO SCH (10:30)
[2019-01-07] MEDS ORDERED: Escitalopram Oxalate 20 mg Tablet PO SCH (10:30)
[2019-01-07] MEDS ORDERED: Polyethylene Glycol 3350 17 GM Packet PO SCH (10:30)
[2019-01-07] MEDS: Sodium Chloride 0.45% 1,000 ML IV SCH (11:20)
[2019-01-07] MEDS: Cefepime 1 GM in Sodium Chloride 0.9% 100 ML IVPB SCH ×2 (11:32→17:40)
[2019-01-07] MEDS ORDERED: Acetaminophen 500 MG TAB PO SCH (12:00)
[2019-01-07] MEDS ORDERED: Acetaminophen/Codeine 30-300mg Tablet PO SCH (13:00)
--- NOTE | 2019-01-07 14:20 | CON ---
DATE OF CONSULTATION: 01/07/2019 CONSULTING PHYSICIAN: Tenzin Gonzalez MD REASON FOR CONSULTATION: Acute on chronic respiratory failure. HISTORY OF PRESENT ILLNESS: At the time of dictation, history and physical was not available in the chart and the patient can give a very limited history. From the ER note, it would appear that the patient was [facility] with [facility]. She was initially over on [address], who was transferred over here this morning for worsening respiratory distress. She is now currently on a BiPAP machine. She is able to talk to the mask. She is worried that she is going to have to have surgery. I told her she was not going to have to have surgery. PAST MEDICAL HISTORY: 1. End-stage COPD, requiring home oxygen. 2. Coronary artery disease, requiring coronary artery bypass grafting surgery. 3. Hypertension. 4. Diabetes mellitus type 2. 5. Anxiety. 6. Chronic pain. 7. Protein-calorie malnutrition. 8. Gastroesophageal reflux. 9. Stroke. 10. Hip fracture for osteoporosis. PAST SURGICAL HISTORY: 1. CABG. 2. ORIF of left hip and right hip. ALLERGIES: PENICILLIN AND LEVAQUIN. FAMILY MEDICAL HISTORY: Unremarkable. SOCIAL HISTORY: Smoked for a long time, quit a few months ago. Does not consume alcohol. Lives in a prison. REVIEW OF SYSTEMS: Cannot be obtained because the patient is currently on BiPAP mask. MEDICATIONS: Prior to admission, these are listed under the home medication section on the chart and includes; 1. Senokot. 2. Escitalopram. 3. Prednisone. 4. Tylenol. 5. Multivitamin. 6. Sertraline. 7. Acetaminophen with codeine. 8. Xanax. 9. Carvedilol. 10. Calcium citrate. 11. Norvasc. 12. Lanoxin. 13. Vitamin D3. 14. Lasix. 15. Estradiol. 16. DuoNeb. 17. Remeron. 18. Zestril. 19. Restoril. 20. Simvastatin. 21. Metformin. 22. Guaifenesin. PHYSICAL EXAMINATION: VITAL SIGNS: Respiratory rate in the 30s, pulse 108, blood pressure 153/75, and temperature 97. GENERAL: The patient is currently resting on BiPAP. She is tachypneic. She has a minute ventilation at 15 L/minute. HEENT: Bitemporal wasting present. NECK: No JVD. LUNGS: Diminished breath sounds. No wheezing. CARDIAC: S1 and S2. Regular. No murmur. ABDOMEN: Soft and nontender. EXTREMITIES: Severe muscle wasting throughout. LABORATORY DATA: Sodium 139, potassium 4.1, chloride 102, CO2 of 32, BUN 19, creatinine 0.6, and glucose 110. A pH of 7.39, pCO2 of 43, and pO2 of 62. White blood cell count 9.9, hematocrit 35, and platelet count 194. Chest x-ray shows hyperinflation, perhaps a left upper lobe infiltrate. ASSESSMENT: 1. Chronic obstructive pulmonary disease with exacerbation. 2. Acute on chronic respiratory failure, requiring mechanical ventilation. 3. Possible left upper lobe pneumonia on x-ray - would have to be considered healthcare-acquired since she is from a prison. PLAN: I agree with the plan for steroids, nebulization therapy, IV antibiotics, and BiPAP. The patient has a DNAR order on the chart. Her prognosis is quite poor. I will be happy to follow with you. Job ID: [id number]
[2019-01-07] MEDS: Acetaminophen/Codeine 30-300mg Tablet PO SCH ×2 (16:59→20:53)
[2019-01-07] MEDS: Calcium Citrate 950 MG TAB PO SCH (20:50)
[2019-01-07] MEDS: Estradiol 1 MG TAB PO SCH (20:51)
[2019-01-07] MEDS: ALPRAZolam 0.5 MG TAB PO SCH (20:52)
[2019-01-07] MEDS: Atorvastatin Calcium 10 MG TAB PO SCH (20:52)
[2019-01-07] MEDS: Mirtazapine 15 MG TAB PO SCH (20:53)
[2019-01-07] MEDS: Lisinopril 20 MG TAB PO SCH (20:55)
[2019-01-07] MEDS: Carvedilol 6.25 MG TAB PO SCH (20:55)
[2019-01-07] MEDS: Temazepam 15 MG CAP PO SCH (20:56)
[2019-01-07] MEDS ORDERED: guaiFENesin ER 600 MG TAB PO SCH (21:00)
--- NOTE | 2019-01-07 21:34 | HP ---
REASON FOR ADMISSION AND CHIEF COMPLAINT: Hypoxia and respiratory distress. HISTORY OF PRESENT ILLNESS: Ms. Marlow is an 78-year-old female with past medical history of end-stage COPD, hypertension, was [facility] because of worsening shortness of breath and cough. The patient has a history of COPD. She gets COPD exacerbation on and off, was in the hospital multiple times. The patient was hypoxic at the [facility] with obvious respiratory distress in spite of getting neb treatments and also Mucinex and prednisone. EMS was called. EMS found the patient with respiratory distress and hypoxia. Her oxygen saturation was around 75%. . The patient was given nebulizer treatments by the EMS after which her saturation improved. The patient also has a cough productive with yellow sputum for the last 1 week. In the ER, the patient was evaluated, found to be in COPD exacerbation and pneumonia. She received a dose of Azactam, gentamicin, and vancomycin as well as DuoNeb treatments. The patient also received a dose of Lovenox. In view of elevated troponin I, the patient initially admitted to telemetry but the patient developed respiratory distress, becoming hypoxic, and she was transferred to [facility]. She was put on BiPAP after which her saturation improved. They called layla oropeza. Currently, the patient looks stable. PAST MEDICAL HISTORY: 1. End-stage chronic obstructive pulmonary disease. 2. Hypertension. 3. Diabetes mellitus. 4. Hyperlipidemia. 5. Chronic back pain. 6. Anxiety disorder. 7. History of pneumonia. 8. Gastroesophageal reflux disease. 9. Protein-calorie malnutrition. 10. History of CVA. 11. Osteoporosis. PAST SURGICAL HISTORY: 1. Status post coronary artery bypass grafting. 2. Status post open reduction and internal fixation. 3. Status post bilateral hip fractures. CURRENT MEDICATIONS: The patient is on; 1. Estradiol 0.5 mg daily. 2. Lasix 20 mg daily. 3. Breo Ellipta one inhalation daily. 4. Robitussin b.i.d. p.r.n. 5. Mucinex 600 b.i.d. 6. DuoNeb q.i.d. 7. Lisinopril 20 mg b.i.d. 8. Metformin 250 b.i.d. 9. Remeron 7.5 mg daily. 10. Tylenol No. 3 q.6 hours p.r.n. 11. Xanax 0.5 t.i.d. 12. Amlodipine 5 mg daily. 13. Vitamin C daily. 14. Aspirin 81 mg daily. 15. Calcium 600 b.i.d. 16. Coreg 6.25 b.i.d. 17. Vitamin D 2000 units daily. 18. Digoxin 0.125 daily. 19. Lexapro 20 mg daily. 20. MiraLAX 17 g daily. 21. Simvastatin 20 mg at bedtime. 22. Temazepam 30 mg at bedtime. ALLERGIES: PENICILLIN, LEVOFLOXACIN, AND QUESTIONABLE TO CEPHALOSPORINS. FAMILY HISTORY: Nothing contributory. SOCIAL HISTORY: The [facility]. No history of smoking. No history of alcohol. REVIEW OF SYSTEMS: CARDIOVASCULAR: No chest pain. No shortness of breath. RESPIRATORY: Cough with productive yellow sputum and fever. GASTROINTESTINAL: No nausea or vomiting. No abdominal pain. CENTRAL NERVOUS SYSTEM: No headache or dizziness. PHYSICAL EXAMINATION: GENERAL: On exam, the patient is alert, awake, and oriented x3. VITAL SIGNS: Temperature 101.4, pulse 108, respirations initially 36 and now 26 , blood pressure initially 213/85 and now 110/60. HEENT: Head is normocephalic and atraumatic. Pupils are equal and reactive. Nasopharynx is pale and dry. Hard and soft palate. No lesions. SKIN: Turgor decreased. NECK: Supple. No JVD. LUNGS: Breath sounds diminished bilaterally. Percussion noted bilaterally. Expiratory wheeze present. Crackles present. HEART: S1, S2. Regular. ABDOMEN: Soft. No distention. No tenderness. Normal bowel sounds. RECTAL: Deferred. CENTRAL NERVOUS SYSTEM: No focal deficit. LABORATORY DATA: CBC shows WBC 10.0, hemoglobin 10.6, hematocrit 32, platelets 187. Metabolic panel; sodium 140, potassium 3.9, chloride 100, CO2 of 35, BUN 29, creatinine 0.9, and glucose 129. CK-MB 2. Troponin I 0.269. ABG showed pH of 7.39, pCO2 of 43, PO2 of 62, saturation 90%. Urinalysis negative. Chest x-ray is reported as possible left perihilar density suggestive of infectious process. EKG shows normal sinus rhythm, no acute ST-T changes seen. ASSESSMENT: 1. Acute respiratory failure secondary to acute exacerbation of chronic obstructive pulmonary disease and pneumonia, left lung. 2. Hypertension. 3. Sinus tachycardia. 4. Hyperlipidemia. 5. Chronic back pain. 6. Anxiety disorder. 7. Diabetes mellitus. 8. Coronary artery disease, status post coronary artery bypass grafting. 9. Protein-calorie malnutrition. PLAN: 1. Vital signs q.4 hours. 2. Activity as tolerated. 3. Allergies: Penicillin, Levaquin, questionable to cephalosporins. 4. DNS 1 unit q.4 hours. 5. Solu-Medrol 40 IVP q.6. 6. Continue [facility] medications. 7. Accu-Chek a.c. and at bedtime. 8. Sliding scale mild with regular insulin. 9. BiPAP. 10. IV fluids, half normal at 60 mL/h. 11. Pulmonary consult. 12. The patient is DNR. Job ID: [id number] [facility]
--- NOTE | 2019-01-08 01:28 | CON ---
DATE OF CONSULTATION: HISTORY OF PRESENT ILLNESS: Yomaira Marlow is an 78-year-old white female long term resident who is a patient of Dr. Srinivas Tam. She has had previous CABG and has severe COPD. She was brought from the long term due to respiratory distress. She was placed on 2-North and transferred to the intermediate care unit and placed on BiPAP because of hypoxemia. She denies any chest discomfort. PAST MEDICAL HISTORY: Remarkable for: 1. Coronary artery disease. 2. Diabetes. 3. Hypertension. 4. Anxiety. 5. History of stroke. 6. End-stage COPD, on oxygen. OPERATIONS: 1. CABG. 2. ORIF of left and right hips. MEDICATIONS: As noted in the chart and multiple. ALLERGIES: 1. PENICILLIN. 2. LEVAQUIN. SOCIAL HISTORY: She smoked until several months ago. She does not drink alcohol. She lives in a long term. REVIEW OF SYSTEMS: Difficult to obtain due to the patient being on BiPAP. PHYSICAL EXAMINATION: VITAL SIGNS: Blood pressure 119/66, pulse of 92, O2 saturation on BiPAP is 99%-100%. HEENT: PERRL. NECK: Supple. CHEST: Reveals somewhat distant breath sounds with occasional rhonchi on the left. CARDIOVASCULAR: S1 and S2 normal without any S3, S4, or murmurs. ABDOMEN: Normal bowel sounds without tenderness. EXTREMITIES: Revealed no edema. There is muscle wasting. NEUROLOGIC: Grossly intact. LABORATORY DATA: EKG reveals normal sinus rhythm with nonspecific ST-segment changes. Current chest x-ray shows hyperinflation with possible left upper lobe infiltrate. Hemoglobin 11.6, hematocrit 35.11, white count 9.9, platelets 194, 000. pH 7.39, pCO2 43.3, pO2 62.1. Sodium 139, potassium 4.1, chloride 102, carbon dioxide 32, BUN 19, creatinine 0.64. Troponin I has been up to 0.269. IMPRESSION: 1. Chronic obstructive pulmonary disease exacerbation and possible left upper lobe pneumonia. 2. Possible [id number] myocardial infarction. 3. Status post coronary artery bypass graft. 4. Hypertension. PLAN: The patient is DNR and at the present time, I do not feel any further cardiac evaluation is warranted except for obtaining an echo once her respiratory status improves. We will follow the patient with you. Job ID: [id number] [facility]
[2019-01-08] MEDS: methylPREDNISolone Sod Succ 40 MG VIAL IVP SCH ×4 (02:18→20:29)
[2019-01-08] MEDS: Cefepime 1 GM in Sodium Chloride 0.9% 100 ML IVPB SCH ×3 (02:19→17:19)
[2019-01-08] MEDS: Sodium Chloride 0.45% 1,000 ML IV SCH (05:56)
[2019-01-08] MEDS: Acetaminophen/Codeine 30-300mg Tablet PO SCH ×4 (08:30→20:31)
[2019-01-08] MEDS: ALPRAZolam 0.5 MG TAB PO SCH ×3 (08:30→20:32)
[2019-01-08] MEDS: Amlodipine 5 MG TAB PO SCH (08:30)
[2019-01-08] MEDS: Carvedilol 6.25 MG TAB PO SCH ×2 (08:31→20:31)
[2019-01-08] MEDS: Calcium Citrate 950 MG TAB PO SCH ×2 (08:31→20:31)
[2019-01-08] MEDS: Escitalopram Oxalate 20 mg Tablet PO SCH (08:32)
[2019-01-08] MEDS: guaiFENesin ER 600 MG TAB PO SCH ×2 (08:32→20:30)
[2019-01-08] MEDS: Lisinopril 20 MG TAB PO SCH ×2 (08:32→20:30)
[2019-01-08] MEDS: Multivitamin W/ Minerals 1 TAB PO SCH (08:32)
[2019-01-08] MEDS: Zinc Sulfate 220 MG CAP PO SCH (08:33)
[2019-01-08] MEDS: Polyethylene Glycol 3350 17 GM Packet PO SCH (08:33)
[2019-01-08] MEDS: Digoxin 0.125 MG TAB PO SCH (08:36)
--- NOTE | 2019-01-08 11:39 | PRG ---
DATE OF SERVICE: 01/08/2019 SUBJECTIVE: Ms. Marlow feels better. She is off the BiPAP today. OBJECTIVE: VITAL SIGNS: Temperature 97.8, pulse 70, blood pressure 113/57, and O2 saturation 99%. HEENT: Unremarkable. NECK: No JVD. LUNGS: Poor air movements with expiratory wheezing. CARDIAC: S1 and S2, regular. ABDOMEN: Soft. EXTREMITIES: No edema. LABORATORY DATA: No labs were done today. ASSESSMENT: 1. Chronic obstructive pulmonary disease exacerbation. 2. Acute on chronic hypoxic respiratory failure. PLAN: 1. Continue p.r.n. BiPAP. 2. Continue antibiotics, nebulization treatments, and IV corticosteroids. I would leave her in [facility] today. Job ID: [id number]
[2019-01-08] MEDS: Guaifenesin DM 100-10/5 ML UDCUP PO PRN ×2 (12:35→20:29)
[2019-01-08] MEDS: Estradiol 1 MG TAB PO SCH (20:29)
[2019-01-08] MEDS: Mirtazapine 15 MG TAB PO SCH (20:30)
[2019-01-08] MEDS: Atorvastatin Calcium 10 MG TAB PO SCH (20:30)
[2019-01-08] MEDS: Temazepam 15 MG CAP PO SCH (20:31)
[2019-01-09] MEDS: methylPREDNISolone Sod Succ 40 MG VIAL IVP SCH ×4 (02:38→20:11)
[2019-01-09] MEDS: Cefepime 1 GM in Sodium Chloride 0.9% 100 ML IVPB SCH ×3 (02:39→17:02)
[2019-01-09] MEDS: Sodium Chloride 0.45% 1,000 ML IV SCH ×2 (05:41→12:38)
[2019-01-09] MEDS: ALPRAZolam 0.5 MG TAB PO SCH ×3 (09:01→20:09)
[2019-01-09] MEDS: Lisinopril 20 MG TAB PO SCH ×2 (09:02→20:10)
[2019-01-09] MEDS: Carvedilol 6.25 MG TAB PO SCH ×2 (09:02→20:10)
[2019-01-09] MEDS: guaiFENesin ER 600 MG TAB PO SCH ×2 (09:02→20:10)
[2019-01-09] MEDS: Multivitamin W/ Minerals 1 TAB PO SCH (09:02)
[2019-01-09] MEDS: Amlodipine 5 MG TAB PO SCH (09:03)
[2019-01-09] MEDS: Escitalopram Oxalate 20 mg Tablet PO SCH (09:03)
[2019-01-09] MEDS: Polyethylene Glycol 3350 17 GM Packet PO SCH (09:03)
[2019-01-09] MEDS: Zinc Sulfate 220 MG CAP PO SCH (09:03)
[2019-01-09] MEDS: Calcium Citrate 950 MG TAB PO SCH ×2 (09:03→20:20)
[2019-01-09] MEDS: Guaifenesin DM 100-10/5 ML UDCUP PO PRN ×3 (09:04→19:45)
[2019-01-09] MEDS: Acetaminophen/Codeine 30-300mg Tablet PO SCH ×4 (09:04→20:10)
--- NOTE | 2019-01-09 10:06 | PRG ---
DATE OF SERVICE: 01/09/2019 SUBJECTIVE: The patient is doing better, had no acute complaints. OBJECTIVE: VITAL SIGNS: Temperature 98.0, pulse 67, blood pressure 114/82, O2 saturation 100%. HEENT: Unremarkable. NECK: No JVD. LUNGS: Clear, but distant. CARDIAC: S1, S2. Regular. ABDOMEN: Soft. EXTREMITIES: No edema. LABORATORY DATA: No labs were done today. ASSESSMENT: Chronic obstructive pulmonary disease with exacerbation. PLAN: Transfer to the floor. Continue steroids, nebulization treatments, and antibiotics. Discontinue BiPAP. Job ID: [id number]
--- NOTE | 2019-01-09 13:53 | PQF ---
CLINICAL DOCUMENTATION IMPROVEMENT CLARIFICATION FORM: ICD-10 Updated PLEASE DO AN ADDENDUM TO THE PROGRESS NOTE WITH ANY DOCUMENTATION UPDATES OR ADDITIONS AND CARRY THROUGH TO DC SUMMARY. THANK YOU. DATE: 01/09/19 ATTN: DR. SCHULTZ Please exercise your independent, professional judgment in responding to the clarification form. Clinical indicators are provided on the bottom of this form for your review Please check appropriate box(s) to clarify if the following diagnosis has been ruled in or ruled out: "PNEUMONIA" [ y ] Ruled in diagnosis [ y] Continue to treat [ ] Resolved [ ] Ruled out diagnosis [ ] Cannot rule out diagnosis [ ] Other diagnosis [ ] Unable to determine In addition, please specify: Present on Admission (POA): [y ] Yes [ ] No [ ] Unable to determine For continuity of documentation, please document condition throughout progress notes and discharge summary. Thank You. CLINICAL INDICATORS - SIGNS / SYMPTOMS / LABS H&P: "POSSIBLE LEFT UPPER LOBE PNEUMONIA ON CHEST XRAY" CARDIOLOGY NOTE 01/08: "POSSIBLE LEFT UPPER LOBE PNEUMONIA" RISKS: COPD ADVANCED AGE [facility]DC PATIENT TREATMENT: IV AZTREONAM (ER) IV GENTAMYCIN (ER) IV VANCOMYCIN (ER) IV FLUIDS (ER) IV SOLU-MEDROL (01/07-PRESENT) IV MAXIPIME ( 01/07-PRESENT) BIPAP PULMONARY CONSULT DUONEBS (01/07-PRESENT) CHEST XRAY (This form is maintained as a part of the permanent medical record) 2014 [employer]. All Rights Reserved [email or web address] Office: [phone] [facility]
[2019-01-09] MEDS: Atorvastatin Calcium 10 MG TAB PO SCH (20:09)
[2019-01-09] MEDS: Temazepam 15 MG CAP PO SCH (20:09)
[2019-01-09] MEDS: Mirtazapine 15 MG TAB PO SCH (20:10)
[2019-01-09] MEDS: Estradiol 1 MG TAB PO SCH (20:20)
[2019-01-10] MEDS: methylPREDNISolone Sod Succ 40 MG VIAL IVP SCH ×4 (02:13→19:42)
[2019-01-10] MEDS: Cefepime 1 GM in Sodium Chloride 0.9% 100 ML IVPB SCH ×3 (02:13→16:36)
[2019-01-10] MEDS: Sodium Chloride 0.45% 1,000 ML IV SCH ×2 (06:37→19:37)
[2019-01-10 08:07] LABS: Cardiac Risk 3.2 (Less than 4.5)
[2019-01-10] MEDS: Guaifenesin DM 100-10/5 ML UDCUP PO PRN (08:18)
[2019-01-10] MEDS: Acetaminophen/Codeine 30-300mg Tablet PO SCH ×4 (08:19→19:40)
[2019-01-10] MEDS: ALPRAZolam 0.5 MG TAB PO SCH ×3 (08:19→19:39)
[2019-01-10] MEDS: Multivitamin W/ Minerals 1 TAB PO SCH (08:20)
[2019-01-10] MEDS: Amlodipine 5 MG TAB PO SCH (08:21)
[2019-01-10] MEDS: Calcium Citrate 950 MG TAB PO SCH ×2 (08:21→19:39)
[2019-01-10] MEDS: guaiFENesin ER 600 MG TAB PO SCH ×2 (08:21→19:38)
[2019-01-10] MEDS: Escitalopram Oxalate 20 mg Tablet PO SCH (08:21)
[2019-01-10] MEDS: Carvedilol 6.25 MG TAB PO SCH ×2 (08:22→19:40)
[2019-01-10] MEDS: Digoxin 0.125 MG TAB PO SCH (08:25)
[2019-01-10] MEDS: Lisinopril 20 MG TAB PO SCH ×2 (08:25→19:40)
[2019-01-10] MEDS: Zinc Sulfate 220 MG CAP PO SCH (08:26)
[2019-01-10] MEDS: Polyethylene Glycol 3350 17 GM Packet PO SCH (08:26)
--- NOTE | 2019-01-10 10:00 | PRG ---
DATE OF SERVICE: 01/10/2019 SUBJECTIVE: She remains short of breath with cough. OBJECTIVE: VITAL SIGNS: On exam, temperature is 97.4, pulse 78, blood pressure 144/69, O2 saturation is not recorded. HEENT: Unremarkable. NECK: No JVD. LUNGS: Distant, but clear breath sounds. CARDIAC: S1 and S2. Regular. ABDOMEN: Soft. EXTREMITIES: No edema. ASSESSMENT: Chronic obstructive pulmonary disease with exacerbation. PLAN: Probably needs to stay in the hospital for a few more days to continue treatment with steroids, IV antibiotics, and nebulization therapy. Job ID: [id number]
--- NOTE | 2019-01-10 10:07 | PQF ---
CLINICAL DOCUMENTATION IMPROVEMENT CLARIFICATION FORM: ICD-10 Updated PLEASE DO AN ADDENDUM TO THE PROGRESS NOTE WITH ANY DOCUMENTATION UPDATES OR ADDITIONS AND CARRY THROUGH TO DC SUMMARY. THANK YOU. Date: 01/09/19 ATTN: DR. SCHULTZ Please exercise your independent, professional judgment in responding to the clarification form. Clinical indicators are provided on the bottom of this form for your review Please check appropriate box(s): [ y] Protein Calorie Malnutrition: [ ] Mild [ y ] Moderate [ ] Severe [ ] Other Malnutrition (please specify) __ [ ] Underweight without malnutrition [ ] Cachexia [ ] Other diagnosis [ ] Unable to determine In addition, please specify: Present on Admission (POA): [y ] Yes [ ] No [ ] Unable to determine CLINICAL INDICATORS - SIGNS / SYMPTOMS / LABS H&P: "PROTEIN CALORIE MALNUTRITION" PULMONARY NOTE: "SEVERE MUSCLE WASTING THROUGHOUT" BMI 17.6 RISKS: ADVANCED AGE COPD H/O CVA TREATMENT: DIETARY CONSULT TRISTIAN GUPTA Moderate Malnutrition (in acute illness) Energy Intake: <75% of estimated energy requirement for > 7 days Weight Loss: 1-2%/1 week; 5%/ 1 month; 7.5%/3 months Other: mild body fat loss; mild muscle mass loss; mild fluid accumulation; Severe Malnutrition (in acute illness) Energy Intake: < 50% of estimated energy requirement for > 5 days Weight Loss: >1-2%/1 week; >5%/1 month; >7.5%/3 months Other: moderate body fat loss; moderate muscle mass loss; moderate- severe fluid accumulation; 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 [employer] 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 Moderate Malnutrition (in chronic illness) Energy Intake: <75% of estimated energy requirement for >1 month Weight Loss: 5%/1 month; 7.5%/3 months; 10%/6 months; 20%/1 year Other: mild body fat loss; mild muscle mass loss; mild fluid accumulation Severe Malnutrition (in chronic illness) Energy Intake: <75% of estimated energy requirement for >1 month Weight Loss: >5%/1 month; >7.5%/3 months; >10%/6 months; >20%/1 year Other: severe body fat loss; severe muscle mass loss; severe fluid accumulation ; measurably reduced director food and beverage strength (This form is maintained as a part of the permanent medical record) 2014 [employer]. All Rights Reserved [email or web address] Office: [phone] [facility]
[2019-01-10] MEDS: Estradiol 1 MG TAB PO SCH (19:38)
[2019-01-10] MEDS: Mirtazapine 15 MG TAB PO SCH (19:39)
[2019-01-10] MEDS: Atorvastatin Calcium 10 MG TAB PO SCH (19:40)
[2019-01-10] MEDS: Temazepam 15 MG CAP PO SCH (19:41)
[2019-01-11] MEDS: Cefepime 1 GM in Sodium Chloride 0.9% 100 ML IVPB SCH (02:41)
[2019-01-11] MEDS: methylPREDNISolone Sod Succ 40 MG VIAL IVP SCH ×2 (02:42→08:28)
[2019-01-11] MEDS: Guaifenesin DM 100-10/5 ML UDCUP PO PRN ×3 (07:11→20:01)
[2019-01-11] MEDS: Amlodipine 5 MG TAB PO SCH (08:23)
[2019-01-11] MEDS: guaiFENesin ER 600 MG TAB PO SCH ×2 (08:23→20:00)
[2019-01-11] MEDS: Acetaminophen/Codeine 30-300mg Tablet PO SCH ×4 (08:24→19:59)
[2019-01-11] MEDS: ALPRAZolam 0.5 MG TAB PO SCH ×3 (08:24→20:00)
[2019-01-11] MEDS: Lisinopril 20 MG TAB PO SCH ×2 (08:24→20:00)
[2019-01-11] MEDS: Carvedilol 6.25 MG TAB PO SCH ×2 (08:25→19:59)
[2019-01-11] MEDS: Escitalopram Oxalate 20 mg Tablet PO SCH (08:25)
[2019-01-11] MEDS: Multivitamin W/ Minerals 1 TAB PO SCH (08:26)
[2019-01-11] MEDS: Calcium Citrate 950 MG TAB PO SCH ×2 (08:26→19:58)
[2019-01-11] MEDS: Polyethylene Glycol 3350 17 GM Packet PO SCH (08:26)
[2019-01-11] MEDS: predniSONE 20 MG TAB PO SCH (09:30)
[2019-01-11] MEDS: Zinc Sulfate 220 MG CAP PO SCH (09:31)
[2019-01-11] MEDS: Cefdinir 300 MG CAP PO SCH (09:33)
--- NOTE | 2019-01-11 09:47 | PRG ---
DATE OF SERVICE: 01/11/2019 SUBJECTIVE: She is about the same, had no acute complaints. OBJECTIVE: VITAL SIGNS: Temperature 97.7, pulse 72, respirations 24, O2 sat 98%, blood pressure 174/78. HEENT: Unremarkable. NECK: No JVD. LUNGS: Distant, but clear breath sounds. CARDIAC: S1 and S2. Regular. ABDOMEN: Soft. EXTREMITIES: No edema. ASSESSMENT: Chronic obstructive pulmonary disease with exacerbation. PLAN: I will switch her over to oral antibiotics and steroids. Hopefully, she can go back to the [facility] soon. Job ID: [id number]
[2019-01-11] MEDS: Insulin Regular 300 UNITS/3 ML VIAL SC PRN ×2 (11:56→19:08)
[2019-01-11] MEDS: Sodium Chloride 0.45% 1,000 ML IV SCH (16:49)
[2019-01-11] MEDS: Mirtazapine 15 MG TAB PO SCH (19:58)
[2019-01-11] MEDS: Atorvastatin Calcium 10 MG TAB PO SCH (19:58)
[2019-01-11] MEDS: Estradiol 1 MG TAB PO SCH (20:00)
[2019-01-11] MEDS: Temazepam 15 MG CAP PO SCH (20:01)
[2019-01-12] MEDS: Sodium Chloride 0.45% 1,000 ML IV SCH ×2 (05:19→19:51)
[2019-01-12 06:03] LABS: #Eosinphils 0.2 thou/uL (0.0-0.7); #Lymphocytes 2.1 thou/uL (1.20-3.40); #Neutrophils 7.8 thou/uL (1.40-6.50); %Basophils 0.4 % (0.0-1.0); %Eosinophils 1.5 % (0.0-10.0); %Lymphocytes 18.7 % (21.0-51.0); %Neutrophils 70.3 % (42.0-75.0); Hemoglobin 12.3 g/dL (12.0-16.0); Mean Corpuscular HGB CONC 31.4 g/dL (32.0-36.0); Mean Corpuscular Hemoglobin 33.2 pg (27.0-31.0); Mean Platelet Volume 6.9 fL (7.4-10.4); Platelet Count 212 thou/uL (130-400); RBC Distribution Width 14.1 % (11.5-14.5); Red Blood Cell (RBC) Count 3.72 mill/uL (4.20-5.40); White Blood Cell (WBC) Count 11.1 thou/uL (4.8-10.8)
[2019-01-12 06:28] LABS: Anion Gap 14 mmol/L (10-20); BUN (Urea Nitrogen) 16 mg/dL (9.8-20.1); Calc. Creatinine Clearance 67 mL/min (70-130); Calcium 8.6 mg/dL (7.8-10.44); Carbon Dioxide 23 mmol/L (23-31); Chloride 106 mmol/L (98-107); Estimated GFR-MDRD Greater than 90; Glucose 76 mg/dL (83-110); Potassium 4.6 mmol/L (3.5-5.1); Sodium 138 mmol/L (136-145)
[2019-01-12] MEDS: Lisinopril 20 MG TAB PO SCH ×2 (08:14→19:52)
[2019-01-12] MEDS: Cefdinir 300 MG CAP PO SCH (08:14)
[2019-01-12] MEDS: ALPRAZolam 0.5 MG TAB PO SCH ×3 (08:14→19:55)
[2019-01-12] MEDS: Escitalopram Oxalate 20 mg Tablet PO SCH (08:14)
[2019-01-12] MEDS: predniSONE 20 MG TAB PO SCH (08:14)
[2019-01-12] MEDS: Amlodipine 5 MG TAB PO SCH (08:15)
[2019-01-12] MEDS: Multivitamin W/ Minerals 1 TAB PO SCH (08:15)
[2019-01-12] MEDS: Calcium Citrate 950 MG TAB PO SCH ×2 (08:15→19:53)
[2019-01-12] MEDS: guaiFENesin ER 600 MG TAB PO SCH ×2 (08:15→19:54)
[2019-01-12] MEDS: Carvedilol 6.25 MG TAB PO SCH ×2 (08:15→19:54)
[2019-01-12] MEDS: Zinc Sulfate 220 MG CAP PO SCH (08:16)
[2019-01-12] MEDS: Acetaminophen/Codeine 30-300mg Tablet PO SCH ×4 (08:16→19:55)
[2019-01-12] MEDS: Polyethylene Glycol 3350 17 GM Packet PO SCH (08:16)
[2019-01-12] MEDS: Digoxin 0.125 MG TAB PO SCH (08:24)
--- NOTE | 2019-01-12 09:55 | PRG ---
DATE OF SERVICE: 01/12/2019 SUBJECTIVE: She feels better and [facility] to [facility]. OBJECTIVE: VITAL SIGNS: Temperature is 97.9, pulse 79, blood pressure 169/73, and O2 saturation 94%. HEENT: Unremarkable. NECK: No adenopathy or JVD. LUNGS: Clear. CARDIAC: S1 and S2. Regular. ABDOMEN: Soft. EXTREMITIES: No edema. LABORATORY DATA: White blood cell count 11.1, hematocrit 39.3, and platelet count 212. Sodium 138, potassium 4.6, BUN 16, creatinine 0.6, and glucose 76. ASSESSMENT: Chronic obstructive pulmonary disease with exacerbation. PLAN: She was transitioned to oral antibiotics and oral steroids yesterday, these need to be tapered. I think she is probably ready for hospital discharge. No further Pulmonary recommendations and I will sign off. Job ID: [id number]
[2019-01-12 12:36] VITALS: BMI 19.6
[2019-01-12] MEDS: Insulin Regular 300 UNITS/3 ML VIAL SC PRN (18:20)
[2019-01-12] MEDS: Atorvastatin Calcium 10 MG TAB PO SCH (19:53)
[2019-01-12] MEDS: Mirtazapine 15 MG TAB PO SCH (19:53)
[2019-01-12] MEDS: Estradiol 1 MG TAB PO SCH (19:54)
[2019-01-12] MEDS: Temazepam 15 MG CAP PO SCH (19:55)
[2019-01-12] MEDS: Guaifenesin DM 100-10/5 ML UDCUP PO PRN (19:56)
--- NOTE | 2019-01-13 00:30 | DIS ---
DATE OF ADMISSION: 01/06/2019 DATE OF DISCHARGE: 01/12/2019 PRIMARY CARE PROVIDER: Tenzin Gonzalez MD DISCHARGE DIAGNOSES: 1. Chronic obstructive pulmonary disease exacerbation. 2. Pneumonia. 3. Moderate protein-calorie malnutrition. CONDITION OF PATIENT ON THE DAY OF DISCHARGE: Stable. I assessed Ms. Marlow on the day of discharge. She denies any chest pain or shortness of breath. Vital signs are stable. S1 and S2 are heard, regular. Lungs are clear to auscultation bilaterally. CONSULTATIONS DURING THIS HOSPITALIZATION: Cardiology, Dr. Zamora and Pulmonology, Dr. Reardon. DISCHARGE MEDICATIONS: In addition to her pre-admission home medications as dictated by Dr. Gonzalez in his history and physical note dated 01/07/2019, she is being discharged on prednisone taper and cefdinir 600 mg daily for 5 more days. HOSPITAL COURSE: Ms. Marlow is a pleasant 78-year-old lady, who was admitted to [facility] on 01/06/2019, for acute respiratory failure secondary to acute exacerbation of chronic obstructive pulmonary disease and left-sided pneumonia. She was treated with oxygen, steroids, steroids, bronchodilators, and antibiotics. On 01/07, she was transferred to [facility] because of hypoxia. She was seen by Pulmonology and Cardiology Services. She continued to improve clinically. She is being discharged back to care home in a stable condition. The reason for Cardiology consult was for possible non-ST elevation myocardial infarction. Many thanks for allowing me to participate in your patient's care. Please feel free to contact me with any questions or concerns. DISCHARGE DESTINATION: The patient's care home. TOTAL AMOUNT OF TIME SPENT COORDINATING THIS DISCHARGE: 31 minutes. Job ID: [id number]
[2019-01-13] MEDS: Guaifenesin DM 100-10/5 ML UDCUP PO PRN (05:11)
[2019-01-13 07:21] VITALS: TEMP 97.8
[2019-01-13] MEDS: Calcium Citrate 950 MG TAB PO SCH (08:08)
[2019-01-13] MEDS: Zinc Sulfate 220 MG CAP PO SCH (08:08)
[2019-01-13] MEDS: Amlodipine 5 MG TAB PO SCH (08:09)
[2019-01-13] MEDS: Acetaminophen/Codeine 30-300mg Tablet PO SCH (08:09)
[2019-01-13] MEDS: Lisinopril 20 MG TAB PO SCH (08:10)
[2019-01-13] MEDS: predniSONE 20 MG TAB PO SCH (08:10)
[2019-01-13] MEDS: guaiFENesin ER 600 MG TAB PO SCH (08:10)
[2019-01-13] MEDS: ALPRAZolam 0.5 MG TAB PO SCH (08:10)
[2019-01-13] MEDS: Escitalopram Oxalate 20 mg Tablet PO SCH (08:10)
[2019-01-13] MEDS: Cefdinir 300 MG CAP PO SCH (08:10)
[2019-01-13 08:11] VITALS: BP 167/83
[2019-01-13] MEDS: Multivitamin W/ Minerals 1 TAB PO SCH (08:11)
[2019-01-13] MEDS: Carvedilol 6.25 MG TAB PO SCH (08:11)
[2019-01-13] MEDS: Polyethylene Glycol 3350 17 GM Packet PO SCH (08:18)
--- NOTE | 2019-01-13 12:49 | PDOC.PN ---
- Subjective Encounter Start Date: 01/12/19 (Late entry) Encounter Start Time: 12:00 Pt seen for followup re; COPD exacerbation. Feels better. - Objective Resuscitation Status - Order Detail: 01/08/19 03:21 Resuscitation Status Routine Resuscitation Status: DNAR: NO Resuscitation Discussed with: patient has OOH-DNR and advance directives Additional comments: written order in chart signed by Dr. Gonzalez for DNAR status Vital Signs & Weight: Vital Signs (12 hours) Temp Pulse Resp BP BP Pulse Ox 01/13/19 10:50 63 16 93 L 01/13/19 08:11 167/83 H 01/13/19 08:10 167/83 H 01/13/19 08:09 80 01/13/19 08:00 94 L 01/13/19 07:18 97.8 F 80 18 188/92 H 94 L 01/13/19 06:42 94 L 01/13/19 06:40 83 16 94 L 01/13/19 01:32 72 18 96 Weight Admit Weight 115 lb Weight 125 lb 3.2 oz Most Recent Monitor Data Heart Rate from ECG 65 NIBP 125/61 NIBP BP-Mean 82 Respiration from ECG 25 SpO2 93 I&O: 01/12/19 01/13/19 01/14/19 06:59 06:59 06:59 Intake Total 1933 1856 Output Total 900 Balance 1033 1856 Result Diagrams: 01/12/19 05:26 01/12/19 05:26 Additional Labs: Accuchecks 01/13/19 01/13/19 01/12/19 10:57 04:29 19:42 POC Glucose 125 H 102 193 H 01/12/19 16:18 POC Glucose 232 H Phys Exam - Physical Examination Constitutional: NAD HEENT: moist MMs Neck: supple Respiratory: clear to auscultation bilateral Cardiovascular: RRR Gastrointestinal: soft Neurological: moves all 4 limbs Psychiatric: normal affect Dx/Plan (1) COPD exacerbation Code(s): J44.1 - CHRONIC OBSTRUCTIVE PULMONARY DISEASE W (ACUTE) EXACERBATION Status: Acute Comment: Improving with oxygen, steroids, bronchodilators and antibiotics (2) Pneumonia Code(s): J18.9 - PNEUMONIA, UNSPECIFIED ORGANISM Status: Acute Comment: Improving, continue cefdinir - Plan * . Review of Systems - Review of Systems Respiratory: Cough, Dry, SOB with Excertion. negative: Shortness of Breath, Hemoptysis, Pleuritic Pain, Sputum, Wheezing Cardiovascular: negative: chest pain, palpitations, orthopnea, paroxysmal nocturnal dyspnea, edema, light headedness - Medications/Allergies Allergies/Adverse Reactions: Allergies Allergy/AdvReac Type Severity Reaction Status Date / Time levofloxacin [From Levaquin] Allergy Mild Verified 01/07/19 00:18 cefdinir Allergy Unknown Verified 01/07/19 00:18 tramadol Allergy Unknown Verified 01/07/19 00:18 Penicillins Allergy Rash Verified 01/07/19 00:18
--- NOTE | 2019-01-14 03:09 | DIS ---
DATE OF ADMISSION: 01/06/2019 DATE OF DISCHARGE: 01/13/2019 PRIMARY CARE PROVIDER: Tenzin Gonzalez MD DISCHARGE DIAGNOSES: 1. Chronic obstructive pulmonary disease exacerbation. 2. Pneumonia. 3. Moderate protein-calorie malnutrition. Please note that I dictated a discharge summary on January 12, 2019, for this visit. However, the patient could not be discharged to [facility] that day. She is being discharged on the following day. CONDITION: Condition of patient on the day of discharge: Stable. I assessed Ms. Marlow on the day of discharge. She feels better. Vital signs are stable. S1 and S2 are heard, regular. Lungs are clear to auscultation bilaterally. Discharge medications, consultations during this hospitalization, and hospital course as dictated on my discharge summary dated January 12, 2019. DISCHARGE DESTINATION: [facility] in [place]. TIME SPENT: Total amount of time spent coordinating this discharge: 15 minutes. Job ID: [id number] [facility]
== END 2019-01-13 11:27 | DRG 193 ==
LOC: ERS 20:14 → 2NO 23:56 → IMCU/EMU 01-07 08:21 → T4-B 01-09 11:22
PROVIDERS: ADMIT Internal Medicine; ATTEND Internal Medicine
PROC: 5A09457 Assistance with Respiratory Ventilation, 24-96 Consecutive Hours, Continuous Positive Airway Pressure (ICD-10-PCS; principal; 2019-01-06)
DX: J18.9 Pneumonia, unspecified organism (principal); J96.21 Acute and chronic respiratory failure with hypoxia; Z66 Do not resuscitate; I21.4 Non-ST elevation (NSTEMI) myocardial infarction; J44.0 Chronic obstructive pulmonary disease with (acute) lower respiratory infection; E44.0 Moderate protein-calorie malnutrition; J44.1 Chronic obstructive pulmonary disease with (acute) exacerbation; I10 Essential (primary) hypertension; E11.9 Type 2 diabetes mellitus without complications; E78.5 Hyperlipidemia, unspecified; G89.29 Other chronic pain; M54.9 Dorsalgia, unspecified; F41.9 Anxiety disorder, unspecified; M81.0 Age-related osteoporosis without current pathological fracture; K21.9 Gastro-esophageal reflux disease without esophagitis; Z86.73 Personal history of transient ischemic attack (TIA), and cerebral infarction without residual deficits; Z95.1 Presence of aortocoronary bypass graft; Z79.899 Other long term (current) drug therapy; Z79.82 Long term (current) use of aspirin; Z79.84 Long term (current) use of oral hypoglycemic drugs; Z88.0 Allergy status to penicillin; Z88.1 Allergy status to other antibiotic agents
CPT/HCPCS: 36415; 36416; 51701; 71045; 80048; 80061; 81003; 82553; 82805; 83605; 84484; 85025; 87040; 87804; 93005; 94640; 94660; 96365; 96367; A4353; J0692; J1580; J1815; J2920; J3370; J3490; J7512; J7620

== ENCOUNTER 2019-01-25 09:28 | Inpatient (IN) | payer MEDICARE, MEDICAID ==
[2019-01-25] MEDS ORDERED: Acetaminophen 650 MG Suppository ONE (09:51)
--- NOTE | 2019-01-25 10:28 | RAD ---
XR Chest 1 View Portable HISTORY: Dyspnea COMPARISON: 01/07/2019 study. FINDINGS: Heart size is upper limits of normal with postop sternotomy change. Chronic lung changes ar e seen. Parenchymal changes in the left mid and lower lung mantilla are similar to the prior exam some of these changes are chronic in nature but in reviewing older study of 11/14/[address] examin ation of 10/26/2018. These changes are more prominent. IMPRESSION: Left-sided infiltrative lung changes. Fairly similar appearance to the most recent prior exam.
[2019-01-25 10:34] LABS: Hemoglobin 11.3 g/dL (12.0-16.0); Mean Corpuscular HGB CONC 32.5 g/dL (32.0-36.0); Mean Platelet Volume 7.1 fL (7.4-10.4); Platelet Count 159 thou/uL (130-400); RBC Distribution Width 14.8 % (11.5-14.5); Red Blood Cell (RBC) Count 3.34 mill/uL (4.20-5.40); White Blood Cell (WBC) Count 19.3 thou/uL (4.8-10.8)
[2019-01-25 10:45] LABS: ALT (SGPT) 77 U/L (8-55); AST (SGOT) 56 U/L (5-34); Albumin 2.9 g/dL (3.4-4.8); Alkaline Phosphatase 102 U/L (40-150); Anion Gap 11 mmol/L (10-20); BUN (Urea Nitrogen) 21 mg/dL (9.8-20.1); Calc. Creatinine Clearance 0 mL/min (70-130); Calcium 8.7 mg/dL (7.8-10.44); Carbon Dioxide 30 mmol/L (23-31); Chloride 99 mmol/L (98-107); Estimated GFR-MDRD 71; Globulin 2.6 g/dL (2.4-3.5); Glucose 177 mg/dL (83-110); Potassium 4.4 mmol/L (3.5-5.1); Protein, Total 5.5 g/dL (6.0-8.3); Sodium 136 mmol/L (136-145)
[2019-01-25 10:59] LABS: Clarity Clear (Clear); Specific Gravity, Urine 1.015 (1.005-1.030)
[2019-01-25 11:00] LABS: Glucose, Urine (Dipstick) Negative (Negative); Leukocyte Negative (Negative); Nitrite Negative (Negative); Protein, Urine (Dipstick) Negative (Neg-Trace); Urobilinogen 0.2 mg/dL (0.2-1.0); pH, Urine 8.5 (5.0-9.0)
[2019-01-25 11:01] LABS: Bilirubin Negative (Negative); Blood, Urine Negative (Negative)
[2019-01-25 11:10] LABS: Band 37 % (5-11); Eosinophils 1 % (0-10); Lymphocytes 4 % (21-51); MDiff Complete? YES; Metamyelocyte 1 % (0-0); Monocytes 3 % (0-10); Myelocyte 1 % (0-0); Neutrophil 53 % (42-75); RBC Morphology Normal
[2019-01-25] MEDS ORDERED: Micafungin 100 MG in Sodium Chloride 0.9% 100 ML IVPB SCH (11:45)
[2019-01-25 11:47] LABS: Actual Bicarbonate (HCO3a) 29.9 mEq/L (22-28); Analyzer IN Cardio ER; Base Excess (BEa) 4.1 mEq/L (-2.0 to +3.0); CO2 Tension 50.7 mmHg (35.0-45.0); Calcium, Ionized 1.16 mmol/L (1.12-1.30); Carboxyhemoglobin (COHb) 1.1 gm% (0.0-3.0); Hemoglobin (Hb) 11.8 g/dL (12.0-16.0); O2 Tension (PaO2) 65.7 mmHg (> 60.0); Potassium - ABG Lab 4.31 mmol/L (3.70-5.30); pH, Arterial 7.39 (7.35-7.45)
[2019-01-25 11:49] LABS: Puncture Site RRA
[2019-01-25 11:50] LABS: ALV-art Gradient 227.425 (0-20)
[2019-01-25] MEDS ORDERED: Norepinephrine 8 MG/0.9% NS 250 ML ONE (12:33)
[2019-01-25 14:52] LABS: Medtox Reader # READER 4
[2019-01-25 14:53] LABS: Amphetamine Not Detected (NotDetected); Barbiturates Screen Not Detected (NotDetected); Benzodiazepine Screen Detected (NotDetected); Cocaine Metabolite Screen Not Detected (NotDetected); Medtox Control Line Valid? VALID (VALID); Methadone Not Detected (NotDetected); Methamphetamine Not Detected (NotDetected); Opiate Screen Detected (NotDetected); Oxycodone Screen Not Detected (NotDetected); Phencyclidine (PCP) Not Detected (NotDetected); THC/Cannabinoid Screen Not Detected (NotDetected); Tricyclic Screen Not Detected (NotDetected)
[2019-01-25 16:05] VITALS: BMI 19.1
[2019-01-25] MEDS ORDERED: Norepinephrine 8 MG/250 ML BAG IVPB PRN (17:43)
[2019-01-25] MEDS: Piperacillin/Tazobactam 3.375 GM in Sodium Chloride 0.9% 100 ML IVPB SCH (19:51)
[2019-01-25] MEDS: methylPREDNISolone Sod Succ 40 MG VIAL IVP SCH (19:54)
[2019-01-25] MEDS: Sodium Chloride 0.45% 1,000 ML IV SCH (19:54)
[2019-01-25] MEDS: Doxycycline 100 MG CAP PO SCH (21:10)
[2019-01-25] MEDS ORDERED: HYDROcodone/Acetaminophen 5/325 mg Tablet PO PRN (23:24)
[2019-01-26] MEDS: methylPREDNISolone Sod Succ 40 MG VIAL IVP SCH ×5 (00:57→23:46)
[2019-01-26] MEDS: Piperacillin/Tazobactam 3.375 GM in Sodium Chloride 0.9% 100 ML IVPB SCH ×5 (00:57→23:48)
[2019-01-26] MEDS: Sodium Chloride 0.45% 1,000 ML IV SCH ×3 (06:22→23:47)
--- NOTE | 2019-01-26 08:16 | HP ---
CHIEF COMPLAINT: Respiratory distress, cough, and fever. HISTORY OF PRESENT ILLNESS: Ms. Marlow is an 78-year-old female with past medical history of end-stage COPD, recent pneumonia, hypertension, chronic pain, was found to be in respiratory distress. The patient was hypoxic according to custodial. Her O2 saturation was 69% on 2 L, and she is struggling to breathe as well as has been coughing with yellow sputum. The patient was recently in the hospital due to pneumonia and COPD exacerbation, discharged over 10 days ago; so EMS was called. EMS found the patient with fever and hypotension. The patient was given norepinephrine and her blood pressure improved. The patient was hypotensive in the ER after the norepinephrine was stopped. The patient was hypoxic and hypotensive. Blood pressure was 76/49. The patient was then put on BiPAP for hypoxia as well as started on Levophed infusion, after which her blood pressure improved. The patient was found to have pneumonia on the left side, so she was given a dose of Zosyn and vancomycin, given IV fluid bolus of normal saline as well. The patient was admitted to CCU in a critical condition. PAST MEDICAL HISTORY: 1. End-stage COPD, on home oxygen. 2. Hypertension. 3. Hyperlipidemia. 4. Diabetes mellitus. 5. Chronic back pain. 6. Anxiety disorder. 7. History of pneumonia. 8. Gastroesophageal reflux disease. 9. Protein-calorie malnutrition, moderate. 10. History of CVA. 11. Osteoporosis. PAST SURGICAL HISTORY: 1. Status CABG. 2. Status post ORIF for the hip fractures. CURRENT MEDICATIONS: The patient is on; 1. Estradiol 0.5 mg daily. 2. Lasix 20 mg daily. 3. Breo Ellipta one inhalation daily. 4. Robitussin b.i.d. p.r.n. 5. Mucinex 600 b.i.d. 6. DuoNeb q.i.d. 7. Lisinopril 20 mg b.i.d. 8. Metformin 250 b.i.d. 9. Remeron 15 mg daily. 10. Tylenol No. 3 q.6 p.r.n. 11. Xanax 0.5 t.i.d. 12. Amlodipine 5 mg daily. 13. Vitamin C daily. 14. Aspirin 81 mg daily. 15. Calcium 600 b.i.d. 16. Coreg 6.25 b.i.d. 17. Vitamin D 2000 units daily. 18. Digoxin 0.125 daily. 19. Lexapro 20 mg daily. 20. MiraLAX 17 g daily. 21. Simvastatin 20 mg daily. 22. Temazepam 30 mg daily. ALLERGIES: LEVOFLOXACIN AND QUESTIONABLE TO PENICILLIN AND CEPHALOSPORINS. FAMILY HISTORY: Nothing significant. SOCIAL HISTORY: The patient lives in custodial. No history of alcohol intake. No history of smoking. REVIEW OF SYSTEMS: CARDIOVASCULAR: Has shortness of breath. No chest pain. RESPIRATORY: Fever, cough with productive yellow sputum. GASTROINTESTINAL: No nausea or vomiting. CENTRAL NERVOUS SYSTEM: No headache. No dizziness. PHYSICAL EXAMINATION: GENERAL: The patient is alert, awake, and oriented x2. VITAL SIGNS: Temperature 99, pulse 87, respiratory rate 20, blood pressure 100/ 50 HEENT: Head is normocephalic and atraumatic. Pupils are equal and reactive. Nasopharynx is pale and dry. Hard and soft palate. No lesions. SKIN: Turgor decreased. NECK: Supple. No JVD. LUNGS: Breath sounds diminished, percussion note dull bilaterally. Expiratory wheeze present. HEART: S1 and S2, regular. ABDOMEN: Soft. No distention. No tenderness. Normal bowel sounds present. RECTAL: Deferred. CENTRAL NERVOUS SYSTEM: No focal deficit. LABORATORY DATA: CBC shows WBC 19,000, hemoglobin 11, hematocrit 34, platelets 159. Metabolic panel; sodium 136, potassium 4.4, chloride 99, CO2 of 13, BUN 21, creatinine 0.78, glucose 177. BNP of 168. ABG showed pH of 7.39, pCO2 of 56, pO2 of 65, saturation 91%. Urinalysis negative. Chest x-ray reported left-sided infiltrative lung changes. EKG shows normal sinus rhythm, no acute ST-T changes seen. ASSESSMENT: 1. Acute respiratory failure. 2. Pneumonia, left lung. 3. Chronic obstructive pulmonary disease with acute exacerbation. 4. Possible sepsis and septic shock with hypotension. 5. Hyperlipidemia. 6. Diabetes mellitus. 7. Anxiety disorder. 8. Chronic back pain. PLAN: 1. Admit to CCU. 2. BiPAP. 3. Levophed infusion. 4. Solu-Medrol 20 IVP q.6 hours. 5. Duoneb 1 unit q.4 hours. 6. Doxycycline 100 mg b.i.d. 7. Zosyn 3.375 g IV piggyback q.6 hours. We will continue her custodial medications. 8. Diet, cardiac. Job ID: [id number] [facility]
[2019-01-26] MEDS ORDERED: Bacteriostatic Water 30 ML VIAL FS PRN (08:45)
[2019-01-26] MEDS: ALPRAZolam 0.25 MG TAB PO PRN ×2 (08:55→15:53)
--- NOTE | 2019-01-26 09:03 | PRG ---
DATE OF SERVICE: 01/26/2019 SUBJECTIVE: Ms. Marlow was resting on BiPAP when I came in this morning. Her sister was at the bedside. The patient is now on her 3rd hospitalization in the last 3 months. The family wants to talk about hospice options. I think the patient is also ready to talk about those options. OBJECTIVE: VITAL SIGNS: Today, her temperature is 97.4, pulse 71, blood pressure 140/74, and O2 saturation is 100% on BiPAP, generally in the 80s on nasal cannula. HEENT: Pupils reactive. Sclerae icteric. Oropharynx, copious secretions present. NECK: No JVD. LUNGS: Coarse rhonchi. CARDIAC: S1 and S2. Regular. ABDOMEN: Soft. EXTREMITIES: Severe muscle wasting. LABORATORY DATA: She had no new labs today. ASSESSMENT: 1. End-stage chronic obstructive pulmonary disease. 2. Chronic left-sided changes on x-ray. PLAN: 1. Hospice evaluation. 2. Decrease steroid dose. 3. Start Xanax for anxiety. Job ID: [id number]
--- NOTE | 2019-01-26 09:15 | CON ---
DATE OF CONSULTATION: 01/25/2019 SERVICE: Pulmonary Medicine. REASON FOR CONSULT: ICU patient. HISTORY OF PRESENT ILLNESS: The patient is an 78-year-old white female with past medical history significant for advanced COPD, chronic hypoxic failure, and oropharyngeal dysphagia. She has had multiple admissions to the hospital associated with respiratory failures. At this point, the patient's next of kin and power of attorneys are telling me that her baseline quality of life is not sufficient to continue going through this process. As such, they are requesting that we transition over to comfort care only. The patient's wishes are of the same. That being said , she would like to have some conversations with her sons before she makes this final. As such, we are in the process of stabilizing her albeit temporarily so that she can have these conversations. She was brought to the emergency department because of increasing hypoxemia, and shortness of breath. She is having increasing sedation. She was brought to the emergency department where a chest x-ray demonstrated some left chest changes that are reminiscent of previous chest x-rays. She specifically denies any fevers or chills. She is not having any nausea, vomiting, or diarrhea. Her weight has been improving a little bit. She has profound weakness, which has progressively gotten worse over the past 6 months. PAST MEDICAL HISTORY: 1. COPD. 2. Chronic hypoxic respiratory failure. 3. Hypertension. 4. Dyslipidemia. 5. Type 2 diabetes mellitus. 6. Chronic back pain. 7. Anxiety disorder. 8. Gastroesophageal reflux disease. 9. Protein calorie malnutrition. 10. History of CVA. 11. Osteoporosis. 12. Oropharyngeal dysphagia. PAST SURGICAL HISTORY: 1. Coronary bypass graft. 2. Open reduction and internal fixation. 3. Hip surgery, bilateral. ALLERGIES: LEVAQUIN, CEFDINIR, TRAMADOL, PENICILLINS. MEDICATIONS: List of her inpatient medications was reviewed. I initiated prednisone, nebulized medications, and antibiotic. FAMILY HISTORY: Noncontributory. SOCIAL HISTORY: Negative for current tobacco, alcohol, or illicit drug use. She has no exposure to chemicals, dust, asbestos, or tuberculosis. She lives in a nursing facility. She is relying on others for most of her ADLs as well as her IADLs. REVIEW OF SYSTEMS: General, head ears, eyes, nose, throat, cardiovascular, respiratory, GI, , musculoskeletal, neurologic, and skin are negative except as mentioned in the HPI. PHYSICAL EXAMINATION: VITAL SIGNS: Afebrile, pulse 98, respirations 18, saturation 94% on 50% FiO2 delivered via BiPAP. Blood pressure is 97/42, on Levophed at 15 mcg. HEENT: Normocephalic and atraumatic. Sclerae are white. Conjunctivae are pink. Oral mucosa is moist without lesions. LUNGS: Decent air entry. She is in mild respiratory distress. There is no prolonged expiratory phase or wheezing appreciated. HEART: Normal rate. Regular. ABDOMEN: Soft, nontender, and nondistended. Bowel sounds are positive. MUSCULOSKELETAL: No cyanosis or clubbing. There is no pitting in bilateral lower extremities. NEUROLOGIC: Grossly nonfocal. She demonstrates diffuse weakness. : Blanca catheter in place. LABORATORY DATA: WBC 19.3, hemoglobin 11.3, platelets 159,000. PH 7.39, pCO2 of 51, PO2 66. Basic metabolic profile, liver function studies are unremarkable. AST and ALT are once again elevated. BNP 168 which is well above her baseline. Urinalysis is unremarkable, urine drug screen is positive for opiates and benzodiazepines, which she is prescribed. Digoxin level is low at 0.36. IMAGING: Chest x-ray demonstrates layering effusion on the left. There is pulmonary vascular congestion present. Possible infiltrate is present. There is not much of a change compared to October 2018. ASSESSMENT: 1. Acute on chronic hypoxic and hypercapnic respiratory failure. 2. Septic shock. 3. Chronic obstructive pulmonary disease with acute exacerbation, recurrent. 4. Acute on chronic diastolic heart failure. 5. Advanced debility. 6. Sacral decubitus ulcer, present on admission. DISCUSSION AND PLAN: I have had an extensive conversation with the patient's next of kin, as well as the patient. At this point, even on her best days, she indicates to me that she does not have good enough quality of life to pursue aggressive maneuvers moving forward. She would like to transition over to comfort care only. That being said, she would like to postpone that transition until she has an opportunity to talk to her sons. I will place a hospice consultation. Dr. Reardon will assume care in the morning. We will wean Levophed away as tolerated. I will initiate steroids, and scheduled nebulized medications. Once her blood pressure firms up, she will need to be diuresed, but for the time being, we will initiate some antibiotics for possible lung infection. At this point, no aggressive interventions or diagnostic studies will be pursued. 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 70 minutes have been devoted to this patient in various activities. I personally reviewed all imaging studies and laboratory data noted within this document. For fifty percent of this time, I was interacting with the patient at the bedside or coordinating care with the care team. For the remainder of the time I was immediately available to the patient in the hospital unit. Job ID: [id number] MTDD
[2019-01-26] MEDS: Doxycycline 100 MG CAP PO SCH ×2 (09:25→20:14)
[2019-01-26] MEDS: Acetaminophen/Codeine 30-300mg Tablet PO PRN ×2 (13:19→20:28)
[2019-01-26] MEDS: Ondansetron PF 4 MG/2 ML Vial IVP PRN (13:19)
[2019-01-26] MEDS ORDERED: Polyethylene Glycol 3350 17 GM Packet PO PRN (18:11)
[2019-01-26] MEDS ORDERED: Senokot 8.6 MG TAB PO PRN (18:12)
[2019-01-26] MEDS ORDERED: Temazepam 15 MG CAP PO PRN (18:13)
[2019-01-26] MEDS: Guaifenesin DM 100-10/5 ML UDCUP PO PRN (18:40)
[2019-01-26] MEDS: Mirtazapine 15 MG TAB PO SCH (20:14)
[2019-01-26] MEDS: guaiFENesin ER 600 MG TAB PO SCH (20:15)
[2019-01-26] MEDS: Carvedilol 6.25 MG TAB PO SCH (20:15)
[2019-01-26] MEDS: ALPRAZolam 0.5 MG TAB PO SCH (20:15)
[2019-01-26] MEDS: Temazepam 15 MG CAP PO SCH (20:15)
[2019-01-26] MEDS: Estradiol 1 MG TAB PO SCH (20:16)
[2019-01-26] MEDS: Atorvastatin Calcium 10 MG TAB PO SCH (20:16)
[2019-01-26] MEDS ORDERED: CALCIUM CITRATE 600 MG PO SCH (21:00)
[2019-01-27] MEDS: Piperacillin/Tazobactam 3.375 GM in Sodium Chloride 0.9% 100 ML IVPB SCH ×3 (06:10→17:48)
[2019-01-27] MEDS: methylPREDNISolone Sod Succ 40 MG VIAL IVP SCH ×4 (06:11→23:35)
[2019-01-27] MEDS: Zinc Sulfate 220 MG CAP PO SCH (08:29)
[2019-01-27] MEDS: Mirtazapine 15 MG TAB PO SCH ×2 (08:30→20:12)
[2019-01-27] MEDS: Doxycycline 100 MG CAP PO SCH ×2 (08:31→20:12)
[2019-01-27] MEDS: Carvedilol 6.25 MG TAB PO SCH ×2 (08:31→20:13)
[2019-01-27] MEDS: Escitalopram Oxalate 10 mg Tablet PO SCH (08:31)
[2019-01-27] MEDS: guaiFENesin ER 600 MG TAB PO SCH ×2 (08:31→20:12)
[2019-01-27] MEDS: ALPRAZolam 0.5 MG TAB PO SCH ×3 (08:31→20:13)
[2019-01-27] MEDS: Multivit, Therapeutic 1 TAB PO SCH (08:32)
[2019-01-27] MEDS: Amlodipine 5 MG TAB PO SCH (08:33)
[2019-01-27] MEDS: Polyethylene Glycol 3350 17 GM Packet PO SCH (08:34)
[2019-01-27] MEDS: Sodium Chloride 0.45% 1,000 ML IV SCH (08:40)
[2019-01-27] MEDS: Acetaminophen/Codeine 30-300mg Tablet PO PRN ×2 (08:56→20:18)
--- NOTE | 2019-01-27 10:05 | PRG ---
DATE OF SERVICE: 01/27/2019 SUBJECTIVE: Ms. Marlow is doing better. She did not require BiPAP last night. OBJECTIVE: VITAL SIGNS: O2 saturations 94%, pulse 81, blood pressure 109/57. Intake 2502, output 1785. HEENT: Mild bitemporal wasting. NECK: No JVD. LUNGS: Distant, but clear breath sounds. CARDIAC: S1 and S2, regular. ABDOMEN: Soft. Wasted muscles EXTREMITIES: No edema. LABORATORY DATA: No labs were done today. ASSESSMENT: 1. End-stage chronic obstructive pulmonary disease. 2. Mild diastolic dysfunction by echo. 3. Pulmonary hypertension by echo - this is likely secondary to chronic obstructive pulmonary disease. PLAN: The patient will be transferred out to the medical floor. She is currently under evaluation for hospice. She will continue treatment for COPD exacerbation, which includes the nebulization treatments and steroids. Job ID: [id number]
[2019-01-27] MEDS: Ondansetron PF 4 MG/2 ML Vial IVP PRN ×2 (12:06→20:19)
[2019-01-27] MEDS: Guaifenesin DM 100-10/5 ML UDCUP PO PRN ×3 (14:18→20:19)
[2019-01-27] MEDS: Estradiol 1 MG TAB PO SCH (20:11)
[2019-01-27] MEDS: Temazepam 15 MG CAP PO SCH (20:12)
[2019-01-27] MEDS: Famotidine 20 MG TAB PO SCH (20:12)
[2019-01-27] MEDS: Atorvastatin Calcium 10 MG TAB PO SCH (20:13)
[2019-01-28] MEDS: methylPREDNISolone Sod Succ 40 MG VIAL IVP SCH ×3 (05:29→17:50)
[2019-01-28] MEDS: Polyethylene Glycol 3350 17 GM Packet PO SCH (08:51)
[2019-01-28] MEDS: Ondansetron PF 4 MG/2 ML Vial IVP PRN (08:51)
[2019-01-28] MEDS: Enoxaparin Sodium 40 MG/0.4 ML SYRINGE SC SCH (08:52)
[2019-01-28] MEDS: Mirtazapine 15 MG TAB PO SCH ×2 (08:52→20:05)
[2019-01-28] MEDS: Acetaminophen/Codeine 30-300mg Tablet PO PRN ×3 (08:54→20:09)
[2019-01-28] MEDS: ALPRAZolam 0.5 MG TAB PO SCH ×3 (08:56→20:06)
[2019-01-28] MEDS: Carvedilol 6.25 MG TAB PO SCH ×2 (08:56→20:07)
[2019-01-28] MEDS: Escitalopram Oxalate 10 mg Tablet PO SCH (08:57)
[2019-01-28] MEDS: Amlodipine 5 MG TAB PO SCH (08:57)
[2019-01-28] MEDS: Multivit, Therapeutic 1 TAB PO SCH (08:57)
[2019-01-28] MEDS: guaiFENesin ER 600 MG TAB PO SCH ×2 (08:57→20:07)
[2019-01-28] MEDS: Famotidine 20 MG TAB PO SCH ×2 (08:57→20:06)
[2019-01-28] MEDS: Digoxin 0.125 MG TAB PO SCH (08:57)
[2019-01-28] MEDS: Zinc Sulfate 220 MG CAP PO SCH (09:02)
[2019-01-28] MEDS: Guaifenesin DM 100-10/5 ML UDCUP PO PRN ×2 (10:09→20:04)
[2019-01-28] MEDS: Doxycycline 100 MG CAP PO SCH ×2 (10:09→20:04)
[2019-01-28] MEDS ORDERED: Dextrose 50% Abboject 50 ML SYRINGE IVP PRN (15:47)
[2019-01-28] MEDS ORDERED: Insulin Regular 300 UNITS/3 ML VIAL SC PRN (15:47)
[2019-01-28] MEDS ORDERED: Dextrose 5% in Water 1,000 ML IV PRN (15:47)
[2019-01-28] MEDS ORDERED: Benzonatate 100 MG CAP PO SCH (16:00)
[2019-01-28] MEDS: Benzonatate 100 MG CAP PO SCH (20:04)
[2019-01-28] MEDS: Temazepam 15 MG CAP PO SCH (20:05)
[2019-01-28] MEDS: Atorvastatin Calcium 10 MG TAB PO SCH (20:06)
[2019-01-28] MEDS: Estradiol 1 MG TAB PO SCH (20:07)
[2019-01-29] MEDS: methylPREDNISolone Sod Succ 40 MG VIAL IVP SCH ×2 (00:24→05:54)
[2019-01-29] MEDS: Escitalopram Oxalate 10 mg Tablet PO SCH (08:45)
[2019-01-29] MEDS: Amlodipine 5 MG TAB PO SCH (08:45)
[2019-01-29] MEDS: predniSONE 20 MG TAB PO SCH (08:45)
[2019-01-29] MEDS: Enoxaparin Sodium 40 MG/0.4 ML SYRINGE SC SCH (08:45)
[2019-01-29] MEDS: Carvedilol 6.25 MG TAB PO SCH ×2 (08:45→20:03)
[2019-01-29] MEDS: guaiFENesin ER 600 MG TAB PO SCH ×2 (08:46→20:02)
[2019-01-29] MEDS: Acetaminophen/Codeine 30-300mg Tablet PO PRN ×2 (08:46→14:54)
[2019-01-29] MEDS: Famotidine 20 MG TAB PO SCH ×2 (08:47→20:02)
[2019-01-29] MEDS: Mirtazapine 15 MG TAB PO SCH ×2 (08:47→20:02)
[2019-01-29] MEDS: Benzonatate 100 MG CAP PO SCH ×3 (08:48→20:02)
[2019-01-29] MEDS: ALPRAZolam 0.5 MG TAB PO SCH ×3 (08:51→20:02)
[2019-01-29] MEDS: Polyethylene Glycol 3350 17 GM Packet PO SCH (08:52)
[2019-01-29] MEDS: Multivit, Therapeutic 1 TAB PO SCH (08:52)
[2019-01-29] MEDS: Zinc Sulfate 220 MG CAP PO SCH (08:53)
[2019-01-29] MEDS: Doxycycline 100 MG CAP PO SCH ×2 (08:57→20:03)
[2019-01-29 11:28] LABS: #Lymphocytes 0.4 thou/uL (1.20-3.40); #Monocytes 0.1 thou/uL (0.11-0.59); #Neutrophils 4.7 thou/uL (1.40-6.50); %Eosinophils 0.3 % (0.0-10.0); %Lymphocytes 8.1 % (21.0-51.0); %Monocytes 2.6 % (0.0-10.0); Hemoglobin 10.1 g/dL (12.0-16.0); Mean Corpuscular HGB CONC 31.3 g/dL (32.0-36.0); Mean Corpuscular Hemoglobin 32.8 pg (27.0-31.0); Mean Platelet Volume 7.6 fL (7.4-10.4); Platelet Count 137 thou/uL (130-400); RBC Distribution Width 14.1 % (11.5-14.5); Red Blood Cell (RBC) Count 3.06 mill/uL (4.20-5.40); White Blood Cell (WBC) Count 5.2 thou/uL (4.8-10.8)
[2019-01-29 11:55] LABS: Anion Gap 10 mmol/L (10-20); BUN (Urea Nitrogen) 23 mg/dL (9.8-20.1); Calc. Creatinine Clearance 58 mL/min (70-130); Calcium 8.6 mg/dL (7.8-10.44); Carbon Dioxide 28 mmol/L (23-31); Chloride 108 mmol/L (98-107); Estimated GFR-MDRD 89; Glucose 243 mg/dL (83-110); Potassium 4.1 mmol/L (3.5-5.1); Sodium 142 mmol/L (136-145)
--- NOTE | 2019-01-29 15:38 | PRG ---
DATE OF SERVICE: 01/29/2019 SUBJECTIVE: Yomaira Marlow has no complaints. She does not want to get out of bed. In fact, she has not been out of bed. I believe for the whole week and per my discussion with the nurses. 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 She does not want to start physical therapy. I explained to her that if she does not start physical therapy soon, she will never get her strength back. OBJECTIVE: VITAL SIGNS: Heart rate 66, blood pressure is 186/78 earlier, respiratory rate 18, and oximetry is 93% on 4 L. LUNGS: Distant and clear. HEART: Regular rhythm. ABDOMEN: Soft. LABORATORY DATA: White count 5.2, hemoglobin 10.1, and platelets 137. Sodium 142, potassium 4.1, chloride 108, bicarb 28, BUN 23, creatinine 0.64, and glucose 243. IMPRESSION AND PLAN: 1. Extreme deconditioning. 2. Advanced chronic obstructive pulmonary disease. 3. Diastolic dysfunction. 4. 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 In my opinion, she is stable for discharge, although I am not optimistic that she will remain out of the hospital very long. Job ID: [id number]
[2019-01-29] MEDS: Atorvastatin Calcium 10 MG TAB PO SCH (20:02)
[2019-01-29] MEDS: Temazepam 15 MG CAP PO SCH (20:02)
[2019-01-29] MEDS: Estradiol 1 MG TAB PO SCH (20:04)
[2019-01-29 20:46] VITALS: TEMP 97.8
[2019-01-30] MEDS: Guaifenesin DM 100-10/5 ML UDCUP PO PRN (04:16)
[2019-01-30] MEDS: ALPRAZolam 0.5 MG TAB PO SCH ×2 (07:10→14:26)
[2019-01-30] MEDS: Amlodipine 5 MG TAB PO SCH (07:22)
[2019-01-30] MEDS: Digoxin 0.125 MG TAB PO SCH (07:23)
[2019-01-30] MEDS: Carvedilol 6.25 MG TAB PO SCH (07:23)
[2019-01-30] MEDS: Enoxaparin Sodium 40 MG/0.4 ML SYRINGE SC SCH (07:24)
[2019-01-30] MEDS: Escitalopram Oxalate 10 mg Tablet PO SCH (07:24)
[2019-01-30] MEDS: guaiFENesin ER 600 MG TAB PO SCH (07:25)
[2019-01-30] MEDS: Mirtazapine 15 MG TAB PO SCH (07:25)
[2019-01-30] MEDS: Famotidine 20 MG TAB PO SCH (07:25)
[2019-01-30] MEDS: Multivit, Therapeutic 1 TAB PO SCH (07:26)
[2019-01-30] MEDS: Polyethylene Glycol 3350 17 GM Packet PO SCH (07:27)
[2019-01-30] MEDS: predniSONE 20 MG TAB PO SCH (07:27)
[2019-01-30] MEDS: Benzonatate 100 MG CAP PO SCH ×2 (07:37→14:26)
[2019-01-30] MEDS: Doxycycline 100 MG CAP PO SCH (07:38)
[2019-01-30] MEDS: Zinc Sulfate 220 MG CAP PO SCH (07:38)
[2019-01-30] MEDS ORDERED: cloNIDine 0.1 MG TAB PO SCH (09:45)
--- NOTE | 2019-01-30 09:49 | PRG ---
DATE OF SERVICE: 01/30/2019 SUBJECTIVE: The patient is about the same. She has no acute complaints. OBJECTIVE: VITAL SIGNS: Temperature is 97.8, pulse 70, respirations 20, O2 saturation 91% on 4 L, and blood pressure 191/92. HEENT: Unremarkable. NECK: No adenopathy or JVD. LUNGS: Distant clear breath sounds. CARDIAC: S1 and S2. Regular. ABDOMEN: Soft. EXTREMITIES: No edema. LABORATORY DATA: No labs were obtained today. ASSESSMENT: 1. Chronic obstructive pulmonary disease with exacerbation. 2. End-stage chronic obstructive pulmonary disease. PLAN: The patient is probably ready for discharge back to nursing facility. I am not sure where she is in regard to hospice planning. Her prognosis remains poor. Pulmonary will sign off. Please re-call if further assistance needed. Job ID: [id number]
[2019-01-30 12:16] VITALS: BP 155/79
[2019-01-30] MEDS: Acetaminophen/Codeine 30-300mg Tablet PO PRN (15:07)
--- NOTE | 2019-01-31 03:53 | PQF ---
[employer] Crystal Reports Winform Viewer CHRISTIAN BONILLA VISHAL MARIANO MD [id number] CLINICAL DOCUMENTATION CLARIFICATION FORM: POST DISCHARGE Addendum to original discharge summary date: ____ Late entry note date: __ DATE: 01/31/19 ATTN: Vishal Caldwell Please exercise your independent, professional judgment in responding to the clarification form. Clinical indicators are provided on the bottom of this form for your review Can you please specify whether Septic shock is ruled in or ruled out during this encounter? Septic Shock [ ] Ruled in diagnosis [ ] Continue to treat [ ] Resolved [ ] Ruled out diagnosis [ ] Cannot rule out diagnosis [ ] Other diagnosis please specify: [ ] Unable to determine In addition, please specify: Present on Admission (POA): [ ] Yes [ ] No [ ] Unable to determine For continuity of documentation, please document condition throughout progress notes and discharge summary. Thank You. CLINICAL INDICATORS H and P pg1 01/25/19- HISTORY OF PRESENT ILLNESS: The patient was recently in the hospital due to pneumonia and COPD exacerbation, discharged over 10 days ago ; so EMS was called. EMS found the patient with fever and hypotension. The patient was given norepinephrine and her blood pressure improved. The patient was hypotensive in the ER after the norepinephrine was stopped. The patient was hypoxic and hypotensive. Blood pressure was 76/49. The patient was then put on BiPAP for hypoxia as well as started on Levophed infusion, after which her blood pressure improved. The patient was found to have pneumonia on the left side, so she was given a dose of Zosyn and vancomycin, given IV fluid bolus of normal saline as well. The patient was admitted to CCU in a critical condition. H and P pg1 01/25/19- Assessment :Possible sepsis and septic shock with hypotension . H and P pg1 01/25/19- Patient was found to have pneumonia on the left side, so she was given a dose of zosyn and vancomycin, given IV bolus of normal saline as well. Consult pg.3 01/25 Dr. Bruce- Acute on chronic hypoxic and hypercapnic respiratory failure Consult pg.3 01/25 Dr. Bruce- Septic shock PN pg.1 01/26 Dr. Reardon- End-stage chronic obstructive pulmonary disease. ED pg 01/23 Final: Primary: Septic shock, Additional: Left Side Pneumonia Blood Culture : No Growth in 5 days Microbiology 01/25 Vital Signs: 01/25 Temp: 99.3 , DE: 84, BP : 117/66, RR: 26 WBC :01/25 19.3 Labs Lactic Acid :01/25 1.5mmol/L Labs RISK FACTORS Acute on chronic hypoxic and hypercapnic respiratory failure-Consult pg.3 01/25 Dr. Bruce End-stage chronic obstructive pulmonary disease- PN pg.1 01/29 Dr. Reardon Protein Calorie Malnutrition-Consult pg.1 01/25 Dr. Bruce Pneumonia on the left side- H and P pg1 01/25/19 TREATMENTS Norepinephrine 8gm/0.9%NS IVPB- NOV 22 IV Fluids- MAR Piperacillin (zosyn) 3.375gm IVPB Q6HR- NOV 22 Pulmonary consult- Dr. Bruce 01/25 X-Ray 01/25 Imaging Blood Culture 01/25 Microbiology (This form is maintained as a part of the permanent medical record) 2014 [employer], [employer]. All Rights Reserved [email or web address] [not provided] MTDD
--- NOTE | 2019-01-31 09:00 | DIS ---
DATE OF ADMISSION: 01/25/2019 DATE OF DISCHARGE: 01/30/2019 ADMITTING ADMISSION: 1. Acute respiratory failure and pneumonia, left lung. 2. Chronic obstructive pulmonary disease with acute exacerbation. 3. Possible sepsis and septic shock with hypotension. 4. Hyperlipidemia. 5. Diabetes mellitus. 6. Anxiety disorder. 7. Chronic back pain. FINAL DIAGNOSES: 1. Acute respiratory failure due to chronic obstructive pulmonary disease exacerbation and pneumonia, left lung, improved. 2. Hypotension, improved. 3. No evidence of sepsis. 4. Anxiety disorder. 5. Hypertension. 6. Diabetes mellitus. 7. Chronic pain. BRIEF SUMMARY OF HOSPITAL COURSE: Ms. Marlow is an 78-year-old female, admitted because of respiratory failure, patient has end-stage COPD and also found to have pneumonia. The patient was hypotensive initially, so she was on Levophed infusion and also BiPAP, admitted to the ICU. The patient was seen by Dr. Bruce on consultation. She felt the patient has acute on chronic hypoxic and hypercapnic respiratory failure and septic shock and also has end-stage COPD. In the next 2 days, patient came off BiPAP, her blood pressure improved, became more alert and awake and started to eat very well. Her condition and prognosis were discussed with daughters and sons. Later, her condition was discussed again with the patient regarding possible hospice. The patient was undecided at this time, wants to think about it. The patient was transferred to medical floor in view of stability. She will be continued on neb treatments, antibiotics, oxygen, and steroids. The patient continued to improve. The patient is being discharged back to residential. The patient indicated that she would go on hospice when she goes back to residential. At the time of discharge, vital signs stable, patient stable. 1. Tylenol with Codeine 1 q.i.d. p.r.n. 2. Coreg 6.25 b.i.d. 3. Calcium citrate 600 b.i.d. 4. Vitamin D 2000 units daily. 5. Restoril 30 mg at bedtime. 6. Simvastatin 20 mg at bedtime. 7. Remeron 7.5 mg twice daily. 8. MiraLAX 17 g daily. 9. Lasix 20 mg daily. 10. Estradiol 0.5 mg at daily. 11. Digoxin 0.125 mg every 2 days. 12. Mucinex 600 b.i.d. 13. Senokot daily p.r.n. 14. Zinc 50 mg daily. 15. Lexapro 10 mg daily. 16. Duonebs q.i.d. as needed. 17. symbicort 160/4.5 2 puffs bid. 18. Xanax 0.5 mg t.i.d. 19. Doxycycline 100 mg b.i.d. for 10 days. 20. Prednisone in tapering doses. The patient will be in hospice when she goes to residential. She can continue physical therapy as well. Job ID: [id number] [facility]
== END 2019-01-30 15:29 | disposition hospice, inpatient (51) | DRG 871 ==
LOC: ERS 09:28 → CCU 15:10 → ONC 01-27 19:22
PROVIDERS: ADMIT Internal Medicine; ATTEND Internal Medicine
DX: A41.9 Sepsis, unspecified organism (principal); J96.21 Acute and chronic respiratory failure with hypoxia; R65.21 Severe sepsis with septic shock; I50.33 Acute on chronic diastolic (congestive) heart failure; J18.9 Pneumonia, unspecified organism; J44.1 Chronic obstructive pulmonary disease with (acute) exacerbation; E44.0 Moderate protein-calorie malnutrition; J44.0 Chronic obstructive pulmonary disease with (acute) lower respiratory infection; Z68.1 Body mass index [BMI] 19.9 or less, adult; Z66 Do not resuscitate; L89.152 Pressure ulcer of sacral region, stage 2; I25.10 Atherosclerotic heart disease of native coronary artery without angina pectoris; I11.0 Hypertensive heart disease with heart failure; K21.9 Gastro-esophageal reflux disease without esophagitis; M81.0 Age-related osteoporosis without current pathological fracture; E78.5 Hyperlipidemia, unspecified; E11.9 Type 2 diabetes mellitus without complications; F41.9 Anxiety disorder, unspecified; I27.20 Pulmonary hypertension, unspecified; Z95.1 Presence of aortocoronary bypass graft; Z90.49 Acquired absence of other specified parts of digestive tract; Z90.710 Acquired absence of both cervix and uterus; Z88.0 Allergy status to penicillin; Z88.1 Allergy status to other antibiotic agents; Z88.6 Allergy status to analgesic agent; Z79.01 Long term (current) use of anticoagulants; Z79.84 Long term (current) use of oral hypoglycemic drugs; Z79.899 Other long term (current) drug therapy; Z99.81 Dependence on supplemental oxygen
CPT/HCPCS: 36415; 36416; 36556; 51702; 71045; 80048; 80053; 80306; 81003; 82805; 83605; 83880; 85025; 87040; 93005; 93306; 94640; 94660; 96365; 96366; 96368; J1650; J2248; J2405; J2543; J2920; J3490; J7512; J7620